=== PATIENT | female | born 1960 | race Caucasian/White ===

== ENCOUNTER → 2016-11-07 | Outpatient (CLI) | payer OTHER ==
[2016-11-07 14:06] VITALS: BP 119/77; PULSE 76; RESP 16; TEMP 97.7
--- NOTE | 2016-11-07 14:48 | P.PN ---
Subjective This is follow-up visit for this patient with a history of severe and chronic low back pain secondary to lumbar degenerative disc disease, lumbar facet arthropathy, failed back surgery syndrome lumbar area , and sacroiliitis ,we have done interventional pain management injection, diagnostic medial branch block later on we did the radiofrequency ablation medial branch lumbar area on the left side, and she continued to have severe low back pain on the left side low back area with radiation to the left upper, she denies any motor or sensory deficit she denies any fever or night sweats and no change in bowel movement or urination,, and is currently on pain medications Coffe[place] 7.5/325 every 6 hours Patient denies any side effects of the medication, denies excessive drowsiness or sleepiness, denies suicidal ideation, and reports that the current pain medication is NOT helping To control the pain and improve activity of daily living Physical Examinations : 1-Constitutiona : Cooperative , not in acute distress . 2-HEENT : nech ; supple , no Lymphadenopathy , no Thyromegaly , normal thyroid size . eyes : no ptosis , no icterus, no photophobia . ENT : normal of hearing , normal oropharynx , no Thrush . 3- Respiratory : Chest clear to auscultations Bilaterally , no wheezing , no Rhonchi . 4- Cardiovascular : regular rate and rhythem , S1 , S2 , no S3 , no S4. 5- Gastrointestinal : abdomen soft no tenderness , bowel sounds positive all four quadrents , no organomegally . 6- Genitourinary : Defferred . 7- neurologic : Cranial nerve II to XII intact , no focal neurological deffecit . 8-psychatric : alert , oriented X 3 , appropriate affect , intact judgment and insight . 9-Lymphatic : no Lymphadenopathy . 10- musculoskeltal : exams of the cervical spine = motor strength normal bilateral upper extremities facet loading test cervical area positive. exams of the Lumber spine = motor strength lower extremities ,thigh and legs .5/5 on the right side and its 4 over 5 on the left side deep tendon reflexes : normal Knee Jerk , normal ankle Jerk . lumber facet Loading Test positive strait leg raising test positive at 30 degree , RT ,LT , Fabere test positive RT and positive LT . Range of motion: Range of motion in flexion of the lumbar spine 30 degrees Range of motion range of motion of extension of the lumbar spine 10 Sever tenderness over the Sacroiliac joint on the Left side , negative on the right side Assessment and plan = - Chronic low back pain secondary to lumbar degenerative disc disease , lumbar spondylosis with facet arthropathy without myelopathy ,, failed back surgery syndrome and lumbar area, and left sacroiliitis, status post radiofrequency ablation medial branch lumbar area on the left side -chronic and current use of high-risk medication (Opioids). The patient was counseled about risk of opioid use, psychological risk associated with opioids and was orally counseled to not overuse , abuse , divert ,or sell dictations to take medications as prescribed only , and to restore medication in safe location , and patient counseled against driving while using narcotic medications, and also not to use alcohol or any illicit recreational drugs the patient's verbalized understanding that the lack of compliance will result in failure to renew narcotic prescription and possible discharge from the clinic - diagnoses, prognosis, and treatment options including but not limited to physical therapy, surgical interventions, interventional therapies and medication management including narcotics and adjuvant medication were discussed with the patient and all questions answered to the patient's satisfaction. -medication refile = increase Coffey to 10/325 every 6 hours , start Motrin 800 mg 3 times a day. -procedure= left sacroiliac joint steroid injection under fluoroscopy guidance Objective - Vital Signs Vital signs: Vital Signs Temp 97.7 F 11/07/16 13:57 Pulse 76 11/07/16 13:57 Resp 16 11/07/16 13:57 BP 119/77 11/07/16 13:57 Pulse Ox 100 11/07/16 13:57 Intake & Output 11/06/16 11/07/16 11/07/16 18:59 06:59 18:59 Weight 86.636 kg
== END | disposition home or self-care (01) ==
LOC: PNWHC3 13:12
PROVIDERS: ATTEND Specialist
DX: M51.36 Other intervertebral disc degeneration, lumbar region (principal); M47.816 Spondylosis without myelopathy or radiculopathy, lumbar region; M46.96 Unspecified inflammatory spondylopathy, lumbar region; M46.1 Sacroiliitis, not elsewhere classified; M96.1 Postlaminectomy syndrome, not elsewhere classified; Z79.891 Long term (current) use of opiate analgesic
CPT/HCPCS: 80307; 80364; 99211

== ENCOUNTER → 2016-12-05 | Outpatient (CLI) | payer OTHER ==
[2016-12-05 13:11] VITALS: BP 140/76; PULSE 66; RESP 16; TEMP 98.1
--- NOTE | 2016-12-05 13:25 | P.PN ---
Progress Note - Text Patient returns for followup for chronic back pain with radiation to bilateral LEs. Patient recently underwent MBBs and left lumbar RFA, which provided good relief in interval since procedure and patient is scheduled to have left SIJ injection at the end of this month. Patient continues on [place] and Neurontin medications for pain with good relief, although [place] was increased at last visit to #120 pills. Patient denies adverse drug effects from medications. Today, pt denies new-onset weakness, bowel/bladder incontinence, or any other signs or symptoms of cauda equina syndrome. There are no signs of acute intoxication, and no indications of medication diversion or overuse. In addition to above, 13-point review of systems is also negative for chest pain , shortness of breath, changes in vision, changes in hearing, new onset weakness , abdominal pain, diarrhea, extreme fatigue, malaise, fever, skin changes, homicidal or suicidal ideation, or bowel or bladder incontinence. Vital Signs: Reviewed in EMR Gen: WDWN, AAOx3, NAD HEENT: NCAT, EOMI, hearing grossly normal Pulm: resp unlabored Abd: soft, NT, ND Neck: supple, trachea midline ROM in flexion lumbar spine: reduced ROM in extension lumbar spine: reduced Lumbar paravertebral tenderness: + Facet loading: + bilateral SI joint tenderness: + bilateral L > R Cm's test: + L side, neg R side Straight leg raise: neg bilateral Neuro: CN II-XII grossly intact, muscle strength lower extremities PRESERVED Imaging: Reviewed in EMR Assessment: 1. lumbar spondylosis without myelopathy 2. lumbar postlaminectomy syndrome 3. sacroiliac joint dysfunction Plan: 1. Explanation: Opioid and psychological risk scores were reviewed. Diagnoses , prognoses, and multiple treatment options including but not limited to physical therapy, interventional therapies, adjuvant medical therapies, narcotic medication therapies, and surgery were discussed with the patient and all questions were answered to the patient's satisfaction. 2. Opioid agreement: Patient has previously signed narcotic agreement, and was orally counseled to not overuse, abuse, divert, or cell medications, and to take them as prescribed by only 1 healthcare provider. The patient was also counseled to store opioid medications in a safe and preferably locked location. Patient was also counseled against driving or operating heavy equipment while using narcotic medications and also to not use alcohol or any illicit or recreational drugs. The patient verbalized understanding that lack of compliance with any of the above and likely result in failure to renew narcotic prescriptions, possible discharge from the clinic, and possible legal ramifications thereafter if indicated. 3. Counseling: The patient was counseled extensively on SMOKING CESSATION, BODY MASS INDEX, EXERCISE. Specifically, the patient was instructed regarding the importance of smoking cessation, obesity, and exercise in the context of both chronic pain and overall health. 4. Procedures: left SIJ injection at end of November 5. Consultations: None 6. Investigations: None 7. Medications: [place] 10/325 #120 x 1 month (fill after 12/16/16), Motrin 800 # 90 with one refill 8. Disposition: f/u for PQRS measures: 1-Patient's medications are documented in the chart. 2-Tobacco use is positive/negative, counseling given 3-Patient has not had a pneumococcal vaccine. 4-Advanced care planning discussed, patient not eligible. 5-Opioid contract signed with the patient today. 6-Pain positive, follow-up visit or procedure scheduled 7-Patient's blood pressure measured and documented, WNL. 8-Patient's weight was measured, and body mass index ABOVE the normal limits, and counseling was done. Patient instructed to follow up with PCP. 9-Patient WAS NOT identified as an unhealthy alcohol user.
== END | disposition home or self-care (01) ==
LOC: PNWHC3 12:49
PROVIDERS: ATTEND Anesthesiology
DX: G89.29 Other chronic pain (principal); M47.816 Spondylosis without myelopathy or radiculopathy, lumbar region; M96.1 Postlaminectomy syndrome, not elsewhere classified; M53.3 Sacrococcygeal disorders, not elsewhere classified; Z79.891 Long term (current) use of opiate analgesic; Z79.899 Other long term (current) drug therapy
CPT/HCPCS: 99211

== ENCOUNTER 2016-12-26 07:45 | Day surgery (SDC) | payer OTHER ==
[2016-12-22 17:48] VITALS: BMI 32.8
[~2016-12-26 07:45] MED LIST: LACTATED RINGERS 1,000 ML IV SCH
[2016-12-26 08:35] VITALS: RESP 16; TEMP 97.6
[2016-12-26] MEDS ORDERED: BUPIVACAINE (PF) 0.5% 30 ML VIAL ONE (09:16)
[2016-12-26] MEDS ORDERED: TRIAMCINOLONE ACETONIDE 40 MG/ML 1 ML VIAL ONE (09:16)
[2016-12-26] MEDS ORDERED: fentaNYL (PF) 50 MCG/ML 2 ML AMP ONE (09:16)
[2016-12-26] MEDS ORDERED: IOHEXOL 180 MG/ML 1 ML ML ONE (09:16)
[2016-12-26] MEDS ORDERED: MIDAZOLAM 2 MG/2 ML VIAL ONE (09:16)
--- NOTE | 2016-12-26 09:30 | P.PCN ---
Date of Procedure: 12/26/16 Surgeon: Florin Vera Pathology: none sent Condition: stable Disposition: PACU Description of Procedure: PREOPERATIVE DIAGNOSIS: 1-Bilateral sacroiliitis. 2 Lumbar DDD POSTOPERATIVE DIAGNOSIS:. 1-Bilateral sacroiliitis. 2 Lumbar DDD PROCEDURES: Left Sacroiliac joint steroid injection with fluoroscopic guidance ANESTHESIA: conscious sedation EBL: Minimal. PROCEDURE INDICATIONS: This patient with a history of low back pain secondary to sacroiliitis and lumbar DDD unresponsive to conservative management. No use of blood thinners. PROCEDURE DESCRIPTION: The patient was seen and identified in the preoperative area. Risks, benefits, complications, and alternatives were discussed with the patient (including but not limited to incomplete pain relief, bleeding, infection, nerve damage, and allergies to medications), the patient agreed to proceed with the procedure and signed the consent after all questions were answered. Patient was taken to the OR and time out was completed to verify proper patient , position, laterality of pain, and allergies. Pt was placed in the prone position and a pillow was placed under the abdomen to reduce lumbar lordosis. The lumbosacral area was prepped and draped in the usual sterile fashion. Critical pause was taken. Vital signs were closely monitored during the procedure. The fluoroscopic camera was placed in contralateral oblique view and left sacroiliiac joint lower pole was identified. After local infiltration with 1% lidocaine 2 ml, Subsequently, a 22-gauge 3.5 inch spinal needle was introduced into the posteroinferior aspect of the left sacroiliac joint under direct fluoroscopic visualization. Subsequently, 4 ml of a solution containing total 4 mL of 0.5% preservative-free bupivicaine mixed with 80 mg of Kenalog was injected after negative aspiration for CSF, blood, and air and negative for paresthesia. Needle was withdrawn intact. Skin was cleansed, and bandages were applied. COMPLICATIONS: None. COMMENTS: DISPOSITION / PLANS: The patient was placed in a supine position and transferred to the recovery area in a stable condition for observation and was discharged from the recovery room after meeting discharge criteria. Home discharge instructions given to the patient by the staff. The patient was reexamined prior to discharge and there were no issues. The patient will schedule a follow up in clinic in 2-4 weeks.
[2016-12-26] MEDS ORDERED: IV FLUID CONTINUATION 1,000 ML IV ONE (09:38)
[2016-12-26 10:11] VITALS: BP 103/64; PULSE 81
--- NOTE | 2016-12-26 12:30 | FL ---
Fluoroscopy HISTORY: Pain 15 seconds fluoroscopy time supplied to the referring clinician. 1 intraoperative C-arm images docum ent the procedure. See dictated report from anesthesia.
== END 2016-12-26 10:29 | disposition home or self-care (01) ==
LOC: ORPAIN 07:45
PROVIDERS: ATTEND Anesthesiology
DX: G89.29 Other chronic pain (principal); M54.9 Dorsalgia, unspecified; M46.1 Sacroiliitis, not elsewhere classified; M51.36 Other intervertebral disc degeneration, lumbar region; Z79.891 Long term (current) use of opiate analgesic
CPT/HCPCS: 27096; 99152; J2250; J3301; Q9965; J3010

== ENCOUNTER → 2017-01-09 | Outpatient (CLI) | payer OTHER ==
[2017-01-09 15:05] VITALS: BP 128/66; PULSE 75; RESP 16; TEMP 97.4
--- NOTE | 2017-01-09 15:28 | P.PN ---
Subjective This is follow-up visit for this patient with a history of severe and chronic low back pain secondary to lumbar degenerative disc disease , lumbar spondylosis with facet arthropathy , patient had lumbar fusion surgery with ha placed several years ago as part of treatment for scoliosis, and later on the rode has to be removed, we have done interventional pain management injection, radiofrequency ablation of the medial branch left-sided L4 5/L5-S1 and later on we did left sacroiliac joint steroid injection, currently she is complaining of localized pain in the lower lumbar area mainly on the left side, it is constant and increases with any activity, she denies any motor or sensory deficit she denies any fever or night sweats which denies any change in the bowel movements or urination, and is currently on pain medications 1-Motrin 800 mg when necessary 2- [place] 10/325 every 6 hours Patient denies any side effects of the medication, denies excessive drowsiness or sleepiness, denies suicidal ideation, and reports that the current pain medication is NOT helping To control the pain and improve activity of daily living Physical Examinations : 1-Constitutiona : Cooperative , not in acute distress . 2-HEENT : nech ; supple , no Lymphadenopathy , no Thyromegaly , normal thyroid size . eyes : no ptosis , no icterus, no photophobia . ENT : normal of hearing , normal oropharynx , no Thrush . 3- Respiratory : Chest clear to auscultations Bilaterally , no wheezing , no Rhonchi . 4- Cardiovascular : regular rate and rhythem , S1 , S2 , no S3 , no S4. 5- Gastrointestinal : abdomen soft no tenderness , bowel sounds positive all four quadrents , no organomegally . 6- Genitourinary : Defferred . 7- neurologic : Cranial nerve II to XII intact , no focal neurological deffecit . 8-psychatric : alert , oriented X 3 , appropriate affect , intact judgment and insight . 9-Lymphatic : no Lymphadenopathy . 10- musculoskeltal : exams of the Lumber spine = motor strength lower extremities ,thigh and legs .5/5 deep tendon reflexes : normal Knee Jerk , normal ankle Jerk . lumber facet Loading Test positive strait leg raising test positive at 30 degree , RT ,LT , Fabere test positive RT and positive LT . Range of motion: Range of motion in flexion of the lumbar spine 30 degrees Range of motion range of motion of extension of the lumbar spine 10 Sever tenderness over the Sacroiliac joint on the and Left side Assessment and plan = - Chronic low back pain secondary to lumbar degenerative disc disease , lumbar spondylosis with facet arthropathy without myelopathy , failed back surgery syndrome and lumbar area , and left sacroiliitis - chronic and current use of high-risk medication (Opioids). The patient was counseled about risk of opioid use, psychological risk associated with opioids and was orally counseled to not overuse , divert,or sell dictations to take medications as prescribed only , and to restore medication in safe location , and the patient counseled against driving while using narcotic medications, and also not to use alcohol or any illicit recreational drugs, the patient's verbalized understanding that the lack of compliance will result in failure to renew narcotic prescription and possible discharge from the clinic - diagnoses, prognosis, and treatment options including but not limited to physical therapy, surgical interventions, interventional therapies , and medication management including narcotics and adjuvant medication were discussed with the patient and all The questions answered -medication management =1-[place] 10/325 every 6 hours dispense 120 with one refill -procedure= schedule patient to have left sacroiliac joint steroid injection , if she benefits from it then will consider doing radiofrequency of the left sacroiliac joint, and if she has no benefit in the hospital though caudal epidural with lysis of epidural adhesions Objective - Vital Signs Vital signs: Vital Signs Temp 97.4 F L 01/09/17 15:02 Pulse 75 01/09/17 15:02 Resp 16 01/09/17 15:02 BP 128/66 01/09/17 15:02 Pulse Ox 97 01/09/17 15:02 Intake & Output 01/08/17 01/09/17 01/09/17 18:59 06:59 18:59 Weight 86.636 kg
== END | disposition home or self-care (01) ==
LOC: PNWHC3 14:47
PROVIDERS: ATTEND Specialist
DX: M51.36 Other intervertebral disc degeneration, lumbar region (principal); M47.816 Spondylosis without myelopathy or radiculopathy, lumbar region; M46.96 Unspecified inflammatory spondylopathy, lumbar region; M46.1 Sacroiliitis, not elsewhere classified; G89.29 Other chronic pain; Z79.891 Long term (current) use of opiate analgesic
CPT/HCPCS: 99211

== ENCOUNTER 2017-02-08 07:51 | Day surgery (SDC) | payer OTHER ==
[2017-02-07 09:10] VITALS: BMI 31.8
[2017-02-08 08:35] VITALS: RESP 16; TEMP 97.7
[2017-02-08] MEDS ORDERED: LIDOCAINE 1% 20 ML VIAL (10MG/ML) FOR IV START SQ ONE (08:35)
[2017-02-08] MEDS ORDERED: MIDAZOLAM 2 MG/2 ML VIAL ONE (08:53)
[2017-02-08] MEDS ORDERED: fentaNYL (PF) 50 MCG/ML 2 ML AMP ONE (08:53)
[2017-02-08] MEDS ORDERED: BUPIVACAINE (PF) 0.5% 30 ML VIAL ONE (08:53)
[2017-02-08] MEDS ORDERED: TRIAMCINOLONE ACETONIDE 40 MG/ML 1 ML VIAL ONE (08:53)
--- NOTE | 2017-02-08 09:18 | P.PCN ---
Date of Procedure: 02/08/17 Procedure(s) Performed: Preoperative diagnoses= 1-left sacroiliitis. 2-lumbar spondylosis with lumbar facet arthropathy. 3-lumbar DDD Postoperative diagnoses= same as preoperative diagnosis. Procedure= Left sacroiliac joint steroid injection under fluoroscopic guidance. Anesthesia= conscious sedation with Versed 1 mg and fentanyl 50 micrograms and local infiltration with lidocaine 1% 2 ml Estimated blood loss=minimal. Procedure indication= the patient had a history of severe chronic low back pain , diagnosed with sacroiliitis and lumbar sacral facet arthropathy unresponsive to conservative treatment. Procedure description= the patient was seen and identified in the preoperative holding area, risks and benefits and alternative of the procedure and possible complications discussed with the patient, and he agreed with the preceding, patient signed the consent, an IV was started, and vital signs were monitored and were stable throughout the procedure, patient was placed in the prone position or table and the lumbosacral area was prepped and draped with a sterile fashion, vital signs were closely monitored during the procedure, the fluoroscopy camera was placed in the contralateral oblique view on the left sacroiliac joint and the lower part of the joint was identified, local infiltration of the skin and subcutaneous tissue with lidocaine 1% 2 mL then a 22-gauge Quincke-type spinal needle advanced slowly under fluoroscopy and placed in the posterior and inferior border of the left sacroiliac joint, placement confirmed with AP and lateral view, and after appropriate needle placement confirmed and after negative aspiration for heme and CSF and there was no paresthesia during the injection, 3 ml of Marcaine 0.5% and 40 mg of Kenalog injected after negative aspiration, the needle removed intact, Patient tolerated the procedure well without any complication, The patient returned to supine position after the back was cleaned and a Band- Aid applied, the patient transported to recovery room in stable condition and he was monitored for 30 minutes before he was discharged home and then patient was reexamined before going home and patient was discharged in stable condition and patient will follow up with the pain clinic in a few weeks
[2017-02-08] MEDS ORDERED: IV FLUID CONTINUATION 1,000 ML IV ONE (09:27)
--- NOTE | 2017-02-08 09:36 | FL ---
EXAMINATION TYPE: FL guided pain mgmt statistic DATE OF EXAM: 02/08/2017 9:21 AM HISTORY: Flouroscopy time 4 seconds of fluoroscopy provided. IMPRESSION: 1. Fluoroscopy time.
[2017-02-08 09:43] VITALS: BP 114/77; PULSE 73
== END 2017-02-08 09:55 | disposition home or self-care (01) ==
LOC: ORPAIN 07:51
PROVIDERS: ATTEND Specialist
DX: G89.29 Other chronic pain (principal); M46.1 Sacroiliitis, not elsewhere classified; M51.36 Other intervertebral disc degeneration, lumbar region; M47.816 Spondylosis without myelopathy or radiculopathy, lumbar region
CPT/HCPCS: 27096; 99152; J2250; J3301; J3010

== ENCOUNTER → 2017-02-23 | Outpatient (CLI) | payer OTHER ==
--- NOTE | 2017-02-24 10:05 | US ---
EXAMINATION TYPE: US abdomen complete DATE OF EXAM: 02/23/2017 6:38 PM COMPARISON: NONE CLINICAL HISTORY: R10.11 RUQ Pain, R10.13 Epigastic pain. Nausea EXAM MEASUREMENTS: Liver Length: 15.6 cm Gallbladder Wall: 0.2 cm CBD: 0.4 cm Spleen: 10.6 cm Right Kidney: 11.2 x 5.1 x 5.2 cm Left Kidney: 10.6 x 5.5 x 4.9 cm Pancreas: Not well visualized due to overlying bowel gas Liver: Heterogeneous echotexture, no masses visualized Gallbladder: Mobile echogenic foci visualized measuring 2.7 cm Evidence for sonographic Marroquin's sign: No CBD: wnl as visualized, distal portion obscured by bowel gas Spleen: wnl Right Kidney: No hydronephrosis or masses seen Left Kidney: No hydronephrosis or masses seen, difficult/limited visualization due to overlying marlen l Upper IVC: wnl Abd Aorta: wnl IMPRESSION: 1. Cholelithiasis 2. Nonspecific pattern with the liver can be seen with diffuse hepatocellular disease, hepatitis or f atty infiltration.
== END | disposition home or self-care (01) ==
LOC: RADUSMAIN 17:51
PROVIDERS: ATTEND Family Medicine
DX: K80.20 Calculus of gallbladder without cholecystitis without obstruction (principal)
CPT/HCPCS: 76700

== ENCOUNTER → 2017-03-08 | Outpatient (CLI) | payer OTHER ==
[2017-03-08 13:17] VITALS: BP 131/76; PULSE 78; RESP 18; TEMP 97.7
--- NOTE | 2017-03-08 14:11 | P.PN ---
Subjective This is follow-up visit for this patient with a history of severe and chronic low back pain secondary to lumbar degenerative disc diseases ,failed back surgery syndrome,, lumbar spondylosis with facet arthropathy, left sacroiliitis , status post left sacroiliac joint steroid injections , RFA of the medial branches and is currently on pain medications 1-norco 5/325-6 hours Patient denies any side effects of the medication, denies excessive drowsiness or sleepiness, denies suicidal ideation, and reports that the current pain medication is NOT helping To control the pain and improve activity of daily living Patient denies any motor or sensory deficit , patient denies any fever or night sweats, denies any change in the bowel movements or urination Physical Examinations : 1-Constitutiona : Cooperative , not in acute distress . 2-HEENT : nech ; supple , no Lymphadenopathy , no Thyromegaly , normal thyroid size . eyes : no ptosis , no icterus, no photophobia . ENT : normal of hearing , normal oropharynx , no Thrush . 3- Respiratory : Chest clear to auscultations Bilaterally , no wheezing , no Rhonchi . 4- Cardiovascular : regular rate and rhythem , S1 , S2 , no S3 , no S4. 5- Gastrointestinal : abdomen soft no tenderness , bowel sounds positive all four quadrents , no organomegally . 6- Genitourinary : Defferred . 7- neurologic : Cranial nerve II to XII intact , no focal neurological deffecit . 8-psychatric : alert , oriented X 3 , appropriate affect , intact judgment and insight . 9-Lymphatic : no Lymphadenopathy . 10- musculoskeltal : exams of the Lumber spine = motor strength lower extremities ,thigh and legs .5/5 deep tendon reflexes : normal Knee Jerk , normal ankle Jerk . lumber facet Loading Test positive strait leg raising test positive at 30 degree , RT ,LT , Fabere test positive RT and positive LT . Range of motion: Range of motion in flexion of the lumbar spine 30 degrees Range of motion range of motion of extension of the lumbar spine 10 mild tenderness over the Sacroiliac joint on the Left side Assessment and plan = - Chronic low back pain secondary to lumbar degenerative disc disease , lumbar spondylosis with facet arthropathy without myelopathy ,FBSS , Left sacroiliitis, She had a good result after the left-sided sacroiliac joint steroid injections, ,and she had good result in the past we did radiofrequency ablation of the medial branch lumbar area - chronic and current use of high-risk medication (Opioids). The patient was counseled about risk of opioid use, psychological risk associated with opioids and was orally counseled to not overuse , divert,or sell dictations to take medications as prescribed only , and to restore medication in safe location , and the patient counseled against driving while using narcotic medications, and also not to use alcohol or any illicit recreational drugs, the patient's verbalized understanding that the lack of compliance will result in failure to renew narcotic prescription and possible discharge from the clinic - diagnoses, prognosis, and treatment options including but not limited to physical therapy, surgical interventions, interventional therapies , and medication management including narcotics and adjuvant medication were discussed with the patient and all shins answered Patient given prescription refill for [place] 5/325 every 6 hours for 2 months Objective - Vital Signs Vital signs: Vital Signs Temp 97.7 F 03/08/17 13:11 Pulse 78 03/08/17 13:11 Resp 18 03/08/17 13:11 BP 131/76 03/08/17 13:11 Pulse Ox Intake & Output 03/07/17 03/08/17 03/08/17 18:59 06:59 18:59 Weight 86.636 kg
== END | disposition home or self-care (01) ==
LOC: PNWHC3 12:51
PROVIDERS: ATTEND Specialist
DX: M51.36 Other intervertebral disc degeneration, lumbar region (principal); M47.816 Spondylosis without myelopathy or radiculopathy, lumbar region; M46.96 Unspecified inflammatory spondylopathy, lumbar region; M46.1 Sacroiliitis, not elsewhere classified; G89.29 Other chronic pain; Z79.891 Long term (current) use of opiate analgesic
CPT/HCPCS: 99211

== ENCOUNTER → 2017-05-03 | Outpatient (CLI) | payer OTHER ==
[2017-05-03 14:58] VITALS: BP 117/74; PULSE 91; RESP 16; TEMP 98.4
--- NOTE | 2017-05-03 15:22 | P.PN ---
Progress Note - Text Patient returns for followup for chronic back pain with radiation to bilateral LEs. Patient recently underwent MBBs and left lumbar RFA and left SIJ injections which have helped her significantly but is now complaining of neck pain and headaches. Patient continues on [place] and Neurontin medications for pain with good relief, although [place] was increased at last visit to #120 pills. Patient denies adverse drug effects from medications. Today, pt denies new-onset weakness, bowel/bladder incontinence, or any other signs or symptoms of cauda equina syndrome. There are no signs of acute intoxication, and no indications of medication diversion or overuse. In addition to above, 13-point review of systems is also negative for chest pain , shortness of breath, changes in vision, changes in hearing, new onset weakness , abdominal pain, diarrhea, extreme fatigue, malaise, fever, skin changes, homicidal or suicidal ideation, or bowel or bladder incontinence. Vital Signs: Reviewed in EMR Gen: WDWN, AAOx3, NAD HEENT: NCAT, EOMI, hearing grossly normal Pulm: resp unlabored Abd: soft, NT, ND Neck: supple, trachea midline +cervical facet tenderness, L > R ROM in flexion lumbar spine: reduced ROM in extension lumbar spine: reduced Lumbar paravertebral tenderness: + Facet loading: + bilateral SI joint tenderness: + bilateral L > R Cm's test: + L side, neg R side Straight leg raise: neg bilateral Neuro: CN II-XII grossly intact, muscle strength lower extremities PRESERVED Imaging: Reviewed in EMR Assessment: 1. lumbar spondylosis without myelopathy 2. lumbar postlaminectomy syndrome 3. sacroiliac joint dysfunction Plan: 1. Explanation: Opioid and psychological risk scores were reviewed. Diagnoses , prognoses, and multiple treatment options including but not limited to physical therapy, interventional therapies, adjuvant medical therapies, narcotic medication therapies, and surgery were discussed with the patient and all questions were answered to the patient's satisfaction. 2. Opioid agreement: Patient has previously signed narcotic agreement, and was orally counseled to not overuse, abuse, divert, or cell medications, and to take them as prescribed by only 1 healthcare provider. The patient was also counseled to store opioid medications in a safe and preferably locked location. Patient was also counseled against driving or operating heavy equipment while using narcotic medications and also to not use alcohol or any illicit or recreational drugs. The patient verbalized understanding that lack of compliance with any of the above and likely result in failure to renew narcotic prescriptions, possible discharge from the clinic, and possible legal ramifications thereafter if indicated. 3. Counseling: The patient was counseled extensively on SMOKING, BODY MASS INDEX, EXERCISE. Specifically, the patient was instructed regarding the importance of smoking cessation, weight control and exercise in the context of both chronic pain and overall health. 4. Procedures: none for now 5. Consultations: None 6. Investigations: MRI C-spine 7. Medications: [place] 10/325 #120 x 2 months + Motrin x 2 months; told patient we will likely decrease [place] to #90 at next visit. Patient to have cholecystectomy and I asked her not to get any medications from her surgical team. 8. Disposition: f/u for re-eval in 8 weeks with MRI C-spine PQRS measures: 1-Patient's medications are documented in the chart. 2-Tobacco use is positive/negative, counseling given 3-Patient has not had a pneumococcal vaccine. 4-Advanced care planning discussed, patient not eligible. 5-Opioid contract signed with the patient today. 6-Pain positive, follow-up visit or procedure scheduled 7-Patient's blood pressure measured and documented, WNL. 8-Patient's weight was measured, and body mass index ABOVE the normal limits, and counseling was done. Patient instructed to follow up with PCP. 9-Patient WAS NOT identified as an unhealthy alcohol user.
== END | disposition home or self-care (01) ==
LOC: PNWHC3 14:38
PROVIDERS: ATTEND Anesthesiology
DX: M47.816 Spondylosis without myelopathy or radiculopathy, lumbar region (principal); M53.3 Sacrococcygeal disorders, not elsewhere classified; M96.1 Postlaminectomy syndrome, not elsewhere classified
CPT/HCPCS: 99211

== ENCOUNTER 2017-05-12 06:30 | Day surgery (SDC) | payer OTHER ==
--- NOTE | 2017-04-28 16:10 | P.GSHP ---
History of Present Illness H&P Date: 04/28/17 Chief Complaint: Cholecystitis Patient presented to the office with complaints of right upper quadrant pain. Pain is fairly constant. Has been increasing over the last few years. Pain radiates into the epigastric region and chest. Some radiation to the back is well. Increase his with red meats. Also has bloating and some loose stools. Ultrasound shows a large gallstone measuring 2.7 cm. Recent lab work shows normal liver enzymes. No change in the color of her skin urine or stool. Past Medical History Past Medical History: Fibromyalgia, Musculoskeletal Disorder Additional Past Medical History / Comment(s): back & neck pain History of Any Multi-Drug Resistant Organisms: None Reported Past Surgical History: Back Surgery, Section Additional Past Surgical History / Comment(s): back surgery at 16 for scoliosis , PAIN CLINIC INJECTIONS Past Anesthesia/Blood Transfusion Reactions: No Reported Reaction Smoking Status: Never smoker - Past Family History Father Family Medical History: Cancer, Rheumatoid Arthritis (RA) Mother History Unknown: Yes Family Medical History: Hypertension Medications and Allergies Home Medications Medication Instructions Recorded Confirmed Type PARoxetine HCL [Paxil] 40 mg PO HS 09/08/14 02/08/17 History Estradiol [Estrace] 1 mg PO DAILY 06/14/16 02/08/17 History Topiramate [Topamax] 400 tab PO HS 06/14/16 02/08/17 History Multivitamin [Multivitamins Adult 1 each PO DAILY 12/05/16 02/08/17 History Gummies] Allergies Allergy/AdvReac Type Severity Reaction Status Date / Time No Known Allergies Allergy Verified 03/08/17 13:08 Surgical - Exam Physical exam: General: Well-developed, well-nourished HEENT: Normocephalic, sclerae nonicteric Abdomen: Mild right upper quadrant tenderness, nondistended Extremities: No edema Neuro: Alert and oriented Assessment and Plan (1) Acute cholecystitis Narrative/Plan: Will proceed with lap scopic cholecystectomy on . Risks of bleeding, infection, bile duct injury, biliary leak, retained CBD Stone, conversion to an open procedure were discussed. She understands and wishes to proceed. Status: Acute
[2017-05-09 13:16] VITALS: BMI 31.8
[~2017-05-12 06:30] MED LIST changes: +DEXAMETHASONE SOD PHOSPHATE 10 MG/ML 1 ML VIAL IV ONE; +HEPARIN SODIUM,PORCINE 5,000 UNIT/ML 1 ML VIAL SQ ONE; +LACTATED RINGERS 1,000 ML IV ONE; -LACTATED RINGERS 1,000 ML IV SCH; +MIDAZOLAM 2 MG/2 ML VIAL IV PRN; +ONDANSETRON 4 MG/2 ML VIAL IVP ONE; +SCOPOLAMINE 1.5MG/72HR PATCH TRANSDERM ONE; +ceFAZolin 2 GM in SODIUM CHLORIDE 0.9% 100 ML IVPB ONE
[2017-05-12] MEDS ORDERED: LIDOCAINE 1% 20 ML VIAL (10MG/ML) FOR IV START SQ ONE (06:56)
[2017-05-12] MEDS ORDERED: NEOSTIGMINE 1 MG/ML 10 ML VIAL ONE (08:10)
[2017-05-12] MEDS ORDERED: GLYCOPYRROLATE 0.2 MG/ML 2 ML VIAL ONE (08:10)
[2017-05-12] MEDS ORDERED: fentaNYL (PF) 50 MCG/ML 2 ML AMP ONE (08:10)
[2017-05-12] MEDS ORDERED: MIDAZOLAM 2 MG/2 ML VIAL ONE (08:10)
[2017-05-12] MEDS ORDERED: LIDOCAINE 1% INJ 10MG/ML (20 ML MDV) ONE (08:10)
[2017-05-12] MEDS ORDERED: PROPOFOL 10 MG/ML 20 ML VIAL IV ONE (08:10)
[2017-05-12] MEDS ORDERED: ROCURONIUM BROMIDE 10 MG/ML 10 ML VIAL IV ONE (08:10)
[2017-05-12] MEDS ORDERED: BUPIVACAINE (PF) 0.25% 30 ML VIAL SQ ONE ×2 (08:38)
[2017-05-12 09:31] VITALS: TEMP 97
[2017-05-12] MEDS ORDERED: NALOXONE 0.4 MG/ML 1 ML VIAL IV PRN (09:32)
[2017-05-12] MEDS ORDERED: HYDROcodone/APAP 5-325MG 1 EACH TAB PO PRN (09:32)
[2017-05-12] MEDS: HYDROmorphone 1 MG/ML 1 ML SYRINGE IVP PRN ×4 (09:35→09:55)
--- NOTE | 2017-05-12 09:35 | P.OP ---
Date of Procedure: 05/12/17 Preoperative Diagnosis: Postoperative Diagnosis: Procedure(s) Performed: PREOPERATIVE DIAGNOSIS: Chronic cholecystitis POSTOPERATIVE DIAGNOSIS: Same PROCEDURE: Laparoscopic cholecystectomy with repair umbilical hernia SURGEON: Carmen EBL: Minimal see anesthesia record ANESTHESIA: Gen. COMPLICATIONS: None OPERATIVE PROCEDURE: The patient was brought and placed on the operating room table in the supine position. The patient was placed under general anesthesia at that time. The abdomen was prepped and draped in the usual sterile fashion. A small curvilinear supraumbilical incision was made at the site of what was suspected represent a small hernia. The hernia sac was identified and excised using electrocautery. The fascia was grasped with the Nii forceps. The fascia was retracted anteriorly. The Veress needle was advanced into the peritoneal cavity through the hernia defect. The saline drop test was normal. Insufflation took place up to 15 mmHg. A 5 mm optical trocar was advanced into the peritoneal cavity through the hernia defect. 2 additional 5 mm trochars were placed in the right upper quadrant under direct visualization. A 10 mm trocar was advanced into the epigastric incision site. The gallbladder was retracted superiorly and laterally. The peritoneum overlying the infundibulum was bluntly dissected. The patient's cystic duct was visualized. The junction between the cystic duct common and hepatic duct was identified. The cystic duct was then divided after placement of 3 10 mm clips on the patient's side and one on the specimen side. The cystic artery was identified and clipped as well. A small vessel was seen along the gallbladder fossa and clipped as well. The gallbladder was then removed from the liver bed using electrocautery. The gallbladder was then removed from the epigastric trocar site with an Endo Catch bag. The gallbladder fossa was irrigated with saline. There was no evidence of any bleeding or biliary drainage seen. The trochars were then removed. The fascia at the 10 millimeter site was closed using a Mckinley- Viry 0 Vicryl stitch. The defect at the umbilicus was also closed using a 0 Vicryl Mckinley-Viry stitch. The skin at all 4 sites was closed using a 4- 0 Monocryl stitch. At the end of this procedure the sponge and needle counts were correct. DISPOSITION: Stable to the recovery room Implants: Indications for Procedure: Operative Findings: Description of Procedure:
[2017-05-12] MEDS ORDERED: LACTATED RINGERS 1,000 ML IV ONE (09:53)
[2017-05-12 10:32] VITALS: RESP 16
[2017-05-12] MEDS ORDERED: HYDROcodone/APAP 10-325MG 1 EACH TAB PO ONE (10:40)
[2017-05-12 11:39] VITALS: BP 139/78; PULSE 75
== END 2017-05-12 11:38 | disposition home or self-care (01) ==
LOC: OR 06:30
PROVIDERS: ATTEND Surgery
DX: K80.10 Calculus of gallbladder with chronic cholecystitis without obstruction (principal); K42.9 Umbilical hernia without obstruction or gangrene; M79.7 Fibromyalgia; F32.9 Major depressive disorder, single episode, unspecified; Z79.899 Other long term (current) drug therapy
CPT/HCPCS: 88304; 49652; 47562; J2250; J1644; J1100; J2710; J2405; J2001; J3010; J1170; J2704

== ENCOUNTER → 2017-06-28 | Outpatient (CLI) | payer OTHER ==
[2017-06-28 12:01] VITALS: BP 106/61; PULSE 73; RESP 18
--- NOTE | 2017-06-28 12:16 | P.PN ---
Progress Note - Text -year-old female with history of lower back pain status post bilateral sacroiliac joint steroid injection with good control of her lower back pain. She also has a diagnosis of failed back surgery syndrome. The patient also underwent lumbar medial branch RFA previously. Today she complains of neck pain with radiation to the right upper extremity to the right hand with no numbness or tingling in the upper extremities. She Also denies any bowel or bladder dysfunction. He states that her neck pain has been on all for the last year or so but in the last 2 weeks it has been more severe than previously. Takes Joy 10 mg 4 times a day usually. Physical exam she is alert oriented 3 in no apparent distress. She has normal range of motion of the cervical spine with more pain with right rotation. She has normal muscle strength in the upper extremities. The last MRI of the cervical spine that was done in 2014 showed degenerative disc disease especially at the C5-C6 level with mild to moderate right and mild left-sided neural foraminal stenosis. At this timewe will observe the patient's symptoms and if they are getting worse then she might benefit from getting cervical epidural steroid injection under fluoroscopic guidance. I will continue her prescription for Joy up to 4 pills a day for now because of this increasing neck pain however the plan will be to go down to 3 pills a day on her next visit.
== END | disposition home or self-care (01) ==
LOC: PNWHC3 11:41
PROVIDERS: ATTEND Anesthesiology
DX: M99.71 Connective tissue and disc stenosis of intervertebral foramina of cervical region (principal); M50.322 Other cervical disc degeneration at C5-C6 level; Z79.899 Other long term (current) drug therapy
CPT/HCPCS: 99211

== ENCOUNTER → 2017-07-31 | Outpatient (CLI) | payer OTHER ==
[2017-07-31 13:04] VITALS: BP 121/56; PULSE 76; RESP 16
--- NOTE | 2017-07-31 13:20 | P.PN ---
Progress Note - Text Patient returns for followup for chronic back pain with radiation to bilateral LEs. Patient recently underwent MBBs and left lumbar RFA and left SIJ injections which have helped her significantly and is continuing to complain of neck pain and headaches but has still not had MRI done. Patient continues on [place] and Neurontin medications for pain with good relief, although [place] is still at #120 pills. Patient denies adverse drug effects from medications. Today, pt denies new-onset weakness, bowel/bladder incontinence, or any other signs or symptoms of cauda equina syndrome. There are no signs of acute intoxication, and no indications of medication diversion or overuse. In addition to above, 13-point review of systems is also negative for chest pain , shortness of breath, changes in vision, changes in hearing, new onset weakness , abdominal pain, diarrhea, extreme fatigue, malaise, fever, skin changes, homicidal or suicidal ideation, or bowel or bladder incontinence. Vital Signs: Reviewed in EMR Gen: WDWN, AAOx3, NAD HEENT: NCAT, EOMI, hearing grossly normal Pulm: resp unlabored Abd: soft, NT, ND Neck: supple, trachea midline +cervical facet tenderness, L > R ROM in flexion lumbar spine: reduced ROM in extension lumbar spine: reduced Lumbar paravertebral tenderness: + Facet loading: + bilateral SI joint tenderness: + bilateral L > R Cm's test: + L side, neg R side Straight leg raise: neg bilateral Neuro: CN II-XII grossly intact, muscle strength lower extremities PRESERVED Imaging: Reviewed in EMR Assessment: 1. lumbar spondylosis without myelopathy 2. lumbar postlaminectomy syndrome 3. sacroiliac joint dysfunction Plan: 1. Explanation: Opioid and psychological risk scores were reviewed. Diagnoses , prognoses, and multiple treatment options including but not limited to physical therapy, interventional therapies, adjuvant medical therapies, narcotic medication therapies, and surgery were discussed with the patient and all questions were answered to the patient's satisfaction. 2. Opioid agreement: Patient has previously signed narcotic agreement, and was orally counseled to not overuse, abuse, divert, or cell medications, and to take them as prescribed by only 1 healthcare provider. The patient was also counseled to store opioid medications in a safe and preferably locked location. Patient was also counseled against driving or operating heavy equipment while using narcotic medications and also to not use alcohol or any illicit or recreational drugs. The patient verbalized understanding that lack of compliance with any of the above and likely result in failure to renew narcotic prescriptions, possible discharge from the clinic, and possible legal ramifications thereafter if indicated. 3. Counseling: The patient was counseled extensively on SMOKING, BODY MASS INDEX, EXERCISE. Specifically, the patient was instructed regarding the importance of smoking cessation, weight control and exercise in the context of both chronic pain and overall health. 4. Procedures: none for now 5. Consultations: None 6. Investigations: MRI C-spine 7. Medications: [place] 10/325 #120 with no refill 8. Disposition: f/u for re-eval in 4 weeks with MRI C-spine PQRS measures: 1-Patient's medications are documented in the chart. 2-Tobacco use is positive/negative, counseling given 3-Patient has not had a pneumococcal vaccine. 4-Advanced care planning discussed, patient not eligible. 5-Opioid contract signed with the patient today. 6-Pain positive, follow-up visit or procedure scheduled 7-Patient's blood pressure measured and documented, WNL. 8-Patient's weight was measured, and body mass index ABOVE the normal limits, and counseling was done. Patient instructed to follow up with PCP. 9-Patient WAS NOT identified as an unhealthy alcohol user.
== END ==
LOC: PNWHC3 12:38
PROVIDERS: ATTEND Anesthesiology
DX: M47.816 Spondylosis without myelopathy or radiculopathy, lumbar region (principal); M53.3 Sacrococcygeal disorders, not elsewhere classified; M96.1 Postlaminectomy syndrome, not elsewhere classified; Z79.891 Long term (current) use of opiate analgesic; Z79.899 Other long term (current) drug therapy
CPT/HCPCS: 99211

== ENCOUNTER → 2017-08-16 | Outpatient (CLI) | payer OTHER ==
--- NOTE | 2017-08-16 23:10 | MR ---
EXAMINATION TYPE: MR cervical spine wo con DATE OF EXAM: 08/16/2017 COMPARISON: 01/19/2015 HISTORY: Neck and shoulder pain x1 year previous MRI on PACS TECHNIQUE: Multiplanar, multisequence images of the cervical spine were acquired. The cervical vertebra have normal alignment. There is mild narrowing and decreased signal in the disk s at C5-6 C6-7. Cervical spinal cord has normal signal pattern. There is no evidence of edema. Brains tem appears normal. I see no focal bone destruction. There are small posterior disc bulges at C5-6 C6 -7. There is no cervical paraspinal mass. I see no spinal stenosis. IMPRESSION: Spondylotic change in the lower cervical spine is mild. Small posterior disc bulging at C5-6 and C6-7 . No change compared to old exam.
== END | disposition home or self-care (01) ==
LOC: RADMRIMAIN 21:07
PROVIDERS: ATTEND Anesthesiology
DX: M50.222 Other cervical disc displacement at C5-C6 level (principal); M47.812 Spondylosis without myelopathy or radiculopathy, cervical region
CPT/HCPCS: 72141

== ENCOUNTER → 2017-11-30 | Outpatient (CLI) | payer OTHER ==
[2017-11-30 11:40] VITALS: BP 129/74; PULSE 82; RESP 16
--- NOTE | 2017-11-30 11:55 | P.PN ---
Progress Note - Text Progress Note Date: 11/30/17 Progress Note Date: 08/28/17 This is a 56-year-old female working today for continued neck pain with radiation to the upper back area between her shoulders. This pain did not respond to a previous cervical epidural steroid injection. The patient denies any numbness or tingling in the upper extremities she also denies any bowel or bladder dysfunction or any weakness in the upper extremities. 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 The pain also radiates and gets her headache and also her pain is in the upper neck area and also in her head. The pain gets worse by rotating her neck. Patient denies adverse drug effects from medications. Today , pt denies new-onset weakness, bowel/bladder incontinence, or any other signs or symptoms of cauda equina syndrome. There are no signs of acute intoxication, and no indications of medication diversion or overuse. In addition to above, 13-point review of systems is also negative for chest pain , shortness of breath, changes in vision, changes in hearing, new onset weakness , abdominal pain, diarrhea, extreme fatigue, malaise, fever, skin changes, homicidal or suicidal ideation, or bowel or bladder incontinence. Vital Signs: Reviewed in EMR Gen: WDWN, AAOx3, NAD HEENT: NCAT, EOMI, hearing grossly normal Pulm: resp unlabored Neck: supple, trachea midline +cervical facet tenderness, R > L ROM in flexion lumbar spine: reduced ROM in extension lumbar spine: reduced Neuro: CN II-XII grossly intact, muscle strength lower extremities PRESERVED Assessment: 1. lumbar spondylosis without myelopathy 2. lumbar postlaminectomy syndrome 3. sacroiliac joint dysfunction 4. Cervical spondylosis without myelopathy/facet arthropathy Plan: 1. Explanation: Opioid and psychological risk scores were reviewed. Diagnoses , prognoses, and multiple treatment options including but not limited to physical therapy, interventional therapies, adjuvant medical therapies, narcotic medication therapies, and surgery were discussed with the patient and all questions were answered to the patient's satisfaction. 2. Opioid agreement: Patient has previously signed narcotic agreement, and was orally counseled to not overuse, abuse, divert, or cell medications, and to take them as prescribed by only 1 healthcare provider. The patient was also counseled to store opioid medications in a safe and preferably locked location. Patient was also counseled against driving or operating heavy equipment while using narcotic medications and also to not use alcohol or any illicit or recreational drugs. The patient verbalized understanding that lack of compliance with any of the above and likely result in failure to renew narcotic prescriptions, possible discharge from the clinic, and possible legal ramifications thereafter if indicated. 3. Counseling: The patient was counseled extensively on SMOKING, BODY MASS INDEX, EXERCISE. Specifically, the patient was instructed regarding the importance of smoking cessation, weight control and exercise in the context of both chronic pain and overall health. 4. Procedures: The patient has mostly axial neck pain and she did not respond to a previous cervical epidural steroid injection that's why I am changing back to cervical medial branch block bilaterally for C2, C3 and C4 plus a third occipital nerve block bilaterally under fluoroscopic guidance 5. Consultations: None 6. Investigations: none 7. Medications: [place] 10/325 #90 with one refill and Motrin refilled 8. Disposition: f/u for procedure as scheduled PQRS measures: 1-Patient's medications are documented in the chart. 2-Tobacco use is negative 3-Patient has not had a pneumococcal vaccine. 4-Advanced care planning discussed, patient not eligible. 5-Opioid contract signed with the patient. 6-Pain positive, follow-up visit or procedure scheduled 7-Patient's blood pressure measured and documented, WNL. 8-Patient's weight was measured, and body mass index ABOVE the normal limits, and counseling was done. Patient instructed to follow up with PCP. 9-Patient WAS NOT identified as an unhealthy alcohol user.
== END | disposition home or self-care (01) ==
LOC: PNWHC3 11:03
PROVIDERS: ATTEND Anesthesiology
DX: M96.1 Postlaminectomy syndrome, not elsewhere classified (principal); M47.812 Spondylosis without myelopathy or radiculopathy, cervical region; M47.816 Spondylosis without myelopathy or radiculopathy, lumbar region; M53.3 Sacrococcygeal disorders, not elsewhere classified
CPT/HCPCS: 99211

== ENCOUNTER 2017-12-21 08:08 | Day surgery (SDC) | payer OTHER ==
[2017-11-21 08:12] VITALS: BMI 35.9
[2017-12-21] MEDS: LACTATED RINGERS 1,000 ML IV SCH ×2 (08:33→09:01)
[2017-12-21 08:34] VITALS: TEMP 98
--- NOTE | 2017-12-21 09:23 | P.PCN ---
Date of Procedure: 12/21/17 Procedure(s) Performed: . PROCEDURE 1. Cervical epidural steroid injection under fluoroscopic guidance, C6-7 2. Cervical epidurogram. PREOPERATIVE DIAGNOSIS: 1- Cervical Degenerative Disc Diseases 2--cervical spondylosis with cervical Facet arthropathy without myelopathy POSTOPERATIVE DIAGNOSIS: : 1- Cervical Degenerative Disc Diseases , 2-,cervical spondylosis with cervical Facet arthropathy without myelopathy ANESTHESIA: Local anesthesia with 1% lidocaine 2 ml , and moderate sedation with iv Fentanyl 100 mcg. EBL 0 PROCEDURE INDICATION: The patient with neck pain and radiculitis unresponsive to conservative treatment consents for procedure. PROCEDURE DESCRIPTION / TECHNIQUE: The patient was seen and identified in the preoperative area. Risks, benefits, complications, including but not limited to infections ,bleeding , allergic reactions to the medications ,and not complete pain releife, and alternatives were discussed with the patient, the patient agreed to proceed with the procedure and signed the consent. Patient was taken to the OR and time out was completed. The patient was placed in the prone position on the procedure table. A pillow was placed under the patients chest to increase the cervical interlaminar space. The cervical area was prepped and draped in the usual sterile fashion. Vital signs were closely monitored during the procedure. Conscious sedation was used during the procedure to decrease patients anxiety. Using anterior-posterior fluoroscopy, the C6-7 interlaminar space was identified and the skin over this site was marked and then infiltrated with 1% lidocaine subcutaneously. Subsequently, a 20-gauge 3-1/2-inch Tuohy epidural needle was inserted and advanced toward the epidural space by means of the `` hanging-drop technique and guided by AP and lateral fluoroscopy. The correct needle position in the epidural space was verified with the injection of 2 mL of the water soluble contrast dye [id number]-180 and observing an excellent epidurogram with the epidural spread of the dye, after negative aspiration for blood and CSF and in the absence of paresthesias. Again after negative aspiration, mixture containing 20 mg Dexamethasone and 2 ml of preservative- free normal saline injected and a washout of epidurogram was seen. Needle was withdrawn intact, skin was cleansed, and bandages were applied. Complications= none. Disposition= patient was placed in supine position and transferred to the recovery room area in stable condition and there was no evidence of upper or lower extremity motor or sensory deficit after the procedure patient was discharged from recovery room after discharge criteria met and home discharge instructions was given by the staff and patient will follow with the pain clinic in 2-4 weeks Note = according to the progress note patient was scheduled to have diagnostic medial branch block cervical area C2 3, C3 4, and bilateral third occipital nerve, but because patient prior authorization from the insurance, we didn't have it for today, she had only authorization to have cervical epidural steroid injection, he did cervical epidural steroid injection today and patient will follow up in the pain clinic in a few weeks, if she continued to have pain then we need to get prior authorization to do,bilateral medial branch block cervical area C2 3, C3 4 and bilateral third occipital nerve block. Patient given prescription refill for [place] 10/325 every 6 hours dispense 90, and prescription refill for Motrin 800 mg 3 times a day dispense 90
[2017-12-21 09:29] VITALS: RESP 16
[2017-12-21 09:41] VITALS: BP 100/58; PULSE 73
[2017-12-21] MEDS ORDERED: IV FLUID CONTINUATION 1,000 ML IV ONE (09:49)
--- NOTE | 2017-12-21 10:17 | FL ---
Fluoroscopy HISTORY: Pain 7 seconds fluoroscopy time supplied to the referring clinician. 1 intraoperative C-arm images docume nt the procedure. See dictated report from anesthesia.
== END 2017-12-21 09:59 | disposition home or self-care (01) ==
LOC: ORPAIN 08:08
PROVIDERS: ATTEND Specialist
DX: M47.22 Other spondylosis with radiculopathy, cervical region (principal); M50.10 Cervical disc disorder with radiculopathy, unspecified cervical region
CPT/HCPCS: 62321; J1100; Q9965; J3010

== ENCOUNTER → 2018-01-17 | Outpatient (CLI) | payer OTHER ==
[2018-01-17 14:29] VITALS: BP 131/84; PULSE 79; RESP 18
--- NOTE | 2018-01-18 08:08 | P.PN ---
Subjective Progress Note Date: 01/17/18 This is 57 years old female with a chronic history of severe neck pain, and headache, she is diagnosed with cervical spondylosis, cervical degenerative disc disease, and occipital neuralgia, she was scheduled for bilateral medial branch block but the procedure was not approved by her insurance, and she needed prior authorization, we have done cervical epidural steroid injection, patient reported that she had minimal and short-lived benefit from it, and she continues to have severe neck pain and headache, she is currently on Topamax 400 mg daily, and Bowie 10/325 every 6 hours when necessary for breakthrough pain, she denies any side effects of the medication, she denies any excessive drowsiness or sleepiness, she denies any suicidal ideation, no motor or focal deficit, no change in the bowel movement or urination Objective - Vital Signs Vital signs: Vital Signs Temp Pulse 79 01/17/18 14:18 Resp 18 01/17/18 14:18 BP 131/84 01/17/18 14:18 Pulse Ox 95 01/17/18 14:18 Intake & Output 01/17/18 01/18/18 01/18/18 18:59 06:59 18:59 Weight 94.347 kg - Exam Physical Examinations : 1-Constitutiona : Cooperative , not in acute distress . 2-HEENT : nech ; supple , no Lymphadenopathy , normal thyroid size . eyes : no ptosis , no icterus, no photophobia . ENT : normal of hearing , normal oropharynx , no Thrush . 3- Respiratory : Chest clear to auscultations Bilaterally , no wheezing , no Rhonchi . 4- Cardiovascular : regular rate and rhythem , S1 , S2 , no S3 , no S4. 5- Gastrointestinal : abdomen soft no tenderness , bowel sounds positive all four quadrents , no organomegally . 6- Genitourinary : Defferred . 7- neurologic : Cranial nerve II to XII intact , no focal neurological deffecit . 8-psychatric : alert , oriented X 3 , appropriate affect , intact judgment and insight . 9-Lymphatic : no Lymphadenopathy . 10- musculoskeltal : cervical spine = motor stregnth in the deltoid and biceps, motor stregnth biceps and the wrist extensors (C6) . motor stregnth in the triceps muscle . deep tendon reflexes normal at the biceps , normal at Brachioradialis , normal at the Triceps positive cervical facet loading test . Tenderness over the occipital nerves bilaterally , Lumber spine = normal moter stegnth lower extremities ,thigh and legs .5/5 Assessment and Plan Plan: Assessment and plan= chronic neck pain and headaches secondary to cervical degenerative disc disease and cervical spondylosis, and occipital neuralgia ,status post cervical epidural steroid injections 1 , he had short-term and minimal benefit from it chronic and current use of high-risk medication (opioids) Patient denies any side effects of the current pain medication and the current treatment/medication ML and the patient to do activity of daily living , Diagnoses, prognosis, treatment options, including but not limited to physical therapy, medication management, interventional therapies, and surgery, were discussed with the patient All the questions answered Patient signed the narcotic agreement, and he was orally counseled, not to overuse, not to abuse, not to Divert , not tp sell pain medication, and to take it as prescribed only, Patient was counseled not to drive or operate heavy equipment while using narcotic medication, and advised not to use alcohol or any Illicit drugs while using the narcotis, the patient's verbalized understanding that lack of compliance with any of the above instructions and will likely to cause discharge from the pain service, not to renew his narcotic prescriptions Medication managements= patient will be given prescription refills for Bowie 10/325 every 6 hours dispense 120 with 1 refill., And Motrin 800 mg 3 times a day Patient will be good candidate to have diagnostic medial branch block cervical area C2 3, C3 4 , and bilateral 3 rd occipital nerve block , x2 , and if she has a good result and she will be good candidate to have a radiofrequency ablation of the nerve mentioned above , Time with Patient: Less than 30
== END | disposition home or self-care (01) ==
LOC: PNWHC3 13:57
DX: G89.29 Other chronic pain (principal); M50.30 Other cervical disc degeneration, unspecified cervical region; M47.812 Spondylosis without myelopathy or radiculopathy, cervical region; M54.81 Occipital neuralgia; Z79.899 Other long term (current) drug therapy; Z98.890 Other specified postprocedural states; Z79.891 Long term (current) use of opiate analgesic
CPT/HCPCS: 99211

== ENCOUNTER 2018-02-20 06:56 | Day surgery (SDC) | payer OTHER ==
[2018-02-20 07:37] VITALS: RESP 16; TEMP 98.6
[2018-02-20] MEDS ORDERED: LACTATED RINGERS 1,000 ML IV ONE (07:38)
--- NOTE | 2018-02-20 08:13 | P.PCN ---
Date of Procedure: 02/20/18 Condition: stable Disposition: PACU Description of Procedure: Procedure: Bilateral Cervical Facet Joint/Medial Branch Block under biplanar fluoroscopy Indications: Cervical Spondylosis, Cervicogenic Headaches, Occiptal Neuralgia Surgeon: Dr. Farrar IV sedation with: versed The patient was seen and examined in the PO. Procedure risks and benefits were fully reviewed with patient. The patient understands this is a diagnostic as well as a therapeutic procedure and that the goal of the procedure is to inject medication into the medial branch or small nerves that go into the facet joints. In this way, we can hopefully identify which of these joints, if any, may be contributing to their pain. Informed consent for the procedure was obtained. The patient was taken into the office fluoroscopy procedure room and placed lateral on the table. Vital signs were closely monitored during the procedure. The skin over the area was prepped with Betadine X 3 and draped in usual sterile manner. Sterile technique was observed throughout procedure. Under fluoroscopic guidance, the target injection areas of the TON, C2-3, C3-4 medial branch nerves were visualized in AP, oblique and lateral views. Lidocaine 1% was used with a 25 gauge needle to achieve adequate local anesthesia of the skin and subcutaneous tissue. Using biplanar fluoroscopy, a 25 gauge 3.5 inch spinal needle was inserted into proper position where the tip of the needle was located at the midpoint of the quadrangle at each level, and at the juction of C2-3. After negative aspiration for blood and CSF, solution of 4ml 0.25% Marcaine + 10mg/ml dexamethatsone with 0.5 cc injected at each of the targeted areas. The same procedure was performed on the right side. The needles were withdrawn intact. No complications were noted during the procedure. The patient tolerated procedure well. The patient was placed in supine position and transferred to the recovery area for observation and remained stable until discharged home. Home discharge instructions given to the patient by the staff. The patient was reexamined prior to discharge. Repeat in 2-4 weeks. Comments: Repeat in 2-4 weeks TON, C2-3, C3-C4 Medial Branch Block
[2018-02-20] MEDS ORDERED: IV FLUID CONTINUATION 1,000 ML IV ONE (08:36)
--- NOTE | 2018-02-20 08:40 | FL ---
EXAMINATION TYPE: FL guided pain mgmt statistic DATE OF EXAM: 02/20/2018 HISTORY: Flouroscopy time 16 seconds of fluoroscopy provided. IMPRESSION: 1. Fluoroscopy time.
[2018-02-20 08:59] VITALS: BP 119/65; PULSE 74
--- NOTE | 2018-02-26 06:30 | CDI ---
Date: 02/26/18 CDS/Anesthesiology Crna Name: Joya Vann Phone: If any questions, call Rita Pressley Lunchroom Mother at [phone] Patient Name: Melinda Faith Admit Date: 02/20/18 Discharge Date: 02/20/18 ATTENTION: The [facility] Coding Staff appreciate your assistance in clarifying documentation. Please respond to the clarification below the line at the bottom and electronically sign. The [facility] Coding staff will review the response and follow-up if needed. Please note: Queries are made part of the Legal Health Record. If you have any questions, please contact the Lunchroom Mother. Dear Dr. Farrar, Please provide clarification for the type of sedation used. Procedure Note states IV versed was given. On Pain Procedure Record nothing is checked under "Anesthesia Plan." Please clarify if this was moderate/conscious sedation. Thank you for your kind consideration. MTDD
--- NOTE | 2018-03-20 13:40 | CDI ---
Date: 03/20/18 CDS/Slurry Tank Tender Name: Phone: If any questions, call Rita Pressley Php Website Developer at [phone] Patient Name: Melinda Faith Admit Date: 02/20/18 Discharge Date: 02/20/18 ATTENTION: The [facility] Coding Staff appreciate your assistance in clarifying documentation. Please respond to the clarification below the line at the bottom and electronically sign. The [facility] Coding staff will review the response and follow-up if needed. Please note: Queries are made part of the Legal Health Record. If you have any questions, please contact the Php Website Developer. Dear Dr. Farrar, Please provide clarification for the type of sedation provided. Procedure Note states IV versed was given. On the Pain Procedure Record under Anesthesia Plan, nothing is checked. Please clarify if Moderate/Conscious sedation was provided. Thank you for your quick response to the previous query. However, in order for your comments to be considered part of the patient's permanent record, please type your response below the line at the bottom of this query form. Thank you for your kind consideration. MTDD
--- NOTE | 2018-03-27 10:02 | CDI ---
Date: 03/27/18 CDS/Wet Mixer Name: Joya Vann Phone: If any questions, call Rita Pressley Advertising Director at [phone] Patient Name: Melinda Faith Admit Date: 02/20/18 Discharge Date: 02/20/18 ATTENTION: The [facility] Coding Staff appreciate your assistance in clarifying documentation. Please respond to the clarification below the line at the bottom and electronically sign. The [facility] Coding staff will review the response and follow-up if needed. Please note: Queries are made part of the Legal Health Record. If you have any questions, please contact the Advertising Director. Dear Dr. Farrar, Please provide clarification for the type of sedation provided. Procedure Note states IV versed was given. But on the Pain Procedure Record under Anesthesia Plan, nothing is checked. Please clarify if Moderate/Conscious sedation was provided. Yes or No. Thank you for your quick response to the previous query. However, in order for your comments to be considered part of the patient's permanent record, please type your response below the line at the bottom of this query form. Thank you for your kind consideration. MTDD
== END 2018-02-20 09:14 | disposition home or self-care (01) ==
LOC: ORPAIN 06:56
PROVIDERS: ATTEND Anesthesiology
DX: M47.812 Spondylosis without myelopathy or radiculopathy, cervical region (principal)
CPT/HCPCS: 64490; 64491; J2250; J1100; 99152

== ENCOUNTER → 2018-03-06 | Outpatient (CLI) | payer OTHER ==
[2018-03-06 11:54] VITALS: BP 120/74; PULSE 98; RESP 16
--- NOTE | 2018-03-06 12:28 | P.PN ---
Progress Note - Text Progress Note Date: 03/06/18 Patient returns for followup for chronic back pain with radiation to bilateral LEs. Patient recently had good relief with CMBB x2, but is complaining of severe groin and hip pain that began approximately three weeks ago without any particular inciting incident. Patient continues on [place] and Neurontin medications for pain with good relief, although Claremont is still at #120 pills. Patient denies adverse drug effects from medications. Today, pt denies new- onset weakness, bowel/bladder incontinence, or any other signs or symptoms of cauda equina syndrome. There are no signs of acute intoxication, and no indications of medication diversion or overuse. In addition to above, 13-point review of systems is also negative for chest pain , shortness of breath, changes in vision, changes in hearing, new onset weakness , abdominal pain, diarrhea, extreme fatigue, malaise, fever, skin changes, homicidal or suicidal ideation, or bowel or bladder incontinence. Vital Signs: Reviewed in EMR Gen: WDWN, AAOx3, NAD HEENT: NCAT, EOMI, hearing grossly normal Pulm: resp unlabored Abd: soft, NT, ND Neck: supple, trachea midline Lower extremity: + Cm's R side, + tenderness over R greater trochanter; decreased ROM right hip in flexion and extension due to pain Imaging: MRI cervical spine without contrast dated 08/16/2017 demonstrates mild narrowing and decreased signal in the disks at C5-C6 and C6-C7. There is small posterior disc bulges at C5-C6 and C6-C7 but no cervical paraspinal mass. There is mild spondylosis in the lower cervical spine. Assessment: 1. lumbar spondylosis without myelopathy 2. lumbar postlaminectomy syndrome 3. sacroiliac joint dysfunction 4. hip OA Plan: 1. Explanation: Opioid and psychological risk scores were reviewed. Diagnoses , prognoses, and multiple treatment options including but not limited to physical therapy, interventional therapies, adjuvant medical therapies, narcotic medication therapies, and surgery were discussed with the patient and all questions were answered to the patient's satisfaction. 2. Opioid agreement: Patient has previously signed narcotic agreement, and was orally counseled to not overuse, abuse, divert, or cell medications, and to take them as prescribed by only 1 healthcare provider. The patient was also counseled to store opioid medications in a safe and preferably locked location. Patient was also counseled against driving or operating heavy equipment while using narcotic medications and also to not use alcohol or any illicit or recreational drugs. The patient verbalized understanding that lack of compliance with any of the above and likely result in failure to renew narcotic prescriptions, possible discharge from the clinic, and possible legal ramifications thereafter if indicated. 3. Counseling: The patient was counseled extensively on SMOKING, BODY MASS INDEX, EXERCISE. Specifically, the patient was instructed regarding the importance of smoking cessation, weight control and exercise in the context of both chronic pain and overall health. 4. Procedures: R hip intra-articular injection + R troch bursa injection 5. Consultations: None 6. Investigations: none 7. Medications: [place] 10/325 #60 with no refill (to be combined with patient's current script for #120 for total of #180, which is two months' supply for this patient) 8. MME/day: 30 (unchanged) 8. Disposition: f/u for procedure as scheduled PQRS measures: 1-Patient's medications are documented in the chart. 2-Tobacco use is negative 3-Patient has not had a pneumococcal vaccine. 4-Advanced care planning discussed, patient not eligible. 5-Opioid contract signed with the patient. 6-Pain positive, follow-up visit or procedure scheduled 7-Patient's blood pressure measured and documented, WNL. 8-Patient's weight was measured, and body mass index ABOVE the normal limits, and counseling was done. Patient instructed to follow up with PCP. 9-Patient WAS NOT identified as an unhealthy alcohol user.
== END | disposition home or self-care (01) ==
LOC: PNWHC3 11:36
PROVIDERS: ATTEND Anesthesiology
DX: G89.29 Other chronic pain (principal); M54.9 Dorsalgia, unspecified; M47.816 Spondylosis without myelopathy or radiculopathy, lumbar region; M96.1 Postlaminectomy syndrome, not elsewhere classified; M16.10 Unilateral primary osteoarthritis, unspecified hip; M53.88 Other specified dorsopathies, sacral and sacrococcygeal region; Z79.899 Other long term (current) drug therapy; Z79.891 Long term (current) use of opiate analgesic
CPT/HCPCS: 80356; 99211

== ENCOUNTER 2018-03-29 09:25 | Day surgery (SDC) | payer OTHER ==
[2018-03-20 16:02] VITALS: BMI 33.9
[~2018-03-29 09:25] MED LIST changes: -DEXAMETHASONE SOD PHOSPHATE 10 MG/ML 1 ML VIAL IV ONE; -HEPARIN SODIUM,PORCINE 5,000 UNIT/ML 1 ML VIAL SQ ONE; -LACTATED RINGERS 1,000 ML IV ONE; +LACTATED RINGERS 1,000 ML IV SCH; -MIDAZOLAM 2 MG/2 ML VIAL IV PRN; -ONDANSETRON 4 MG/2 ML VIAL IVP ONE; -SCOPOLAMINE 1.5MG/72HR PATCH TRANSDERM ONE; -ceFAZolin 2 GM in SODIUM CHLORIDE 0.9% 100 ML IVPB ONE
[2018-03-29 09:56] VITALS: RESP 16; TEMP 98.3
[2018-03-29] MEDS ORDERED: LIDOCAINE 1% 20 ML VIAL (10MG/ML) FOR IV START INTRADERMA ONE (10:00)
--- NOTE | 2018-03-29 11:21 | P.PCN ---
Date of Procedure: 03/29/18 Surgeon: Gilson Bansal Description of Procedure: Preoperative diagnoses = right hip joint osteoarthritis. Postoperative diagnoses= same Procedure= intra-articular right hip injection with fluoroscopy Anesthesia= local anesthetic with lidocaine 1% Procedure indication= patient with a history of severe hip pain secondary to osteoarthritis which is not responsive to the conservative treatment. Description of the procedure= patient was seen and identified in the preoperative holding area, risk and benefits , complications ,and alternatives of the procedure were discussed with the patient and patient agreed with the preceding, patient signed the consent and IV was started and vital signs were monitored throughout the procedure and it was stable. The patient was taken to the operating room and placed in supine position the groin area was prepped with chlorhexidine 3 and draped with the standard fashion, a needle was advanced through the skin and subcutaneous tissue from lateral to medial into the hip joint. After negative aspiration,.the solution of 3 cc lidocaine with 40 mg of Kenalog injected. The patient tolerated the procedure well without any complications. As the needle was withdrawn from the joint, it was then directed into the trochanteric bursa and a solution containing 2 mL of 1% lidocaine and 40 mg of Kenalog was injected after negative aspiration. The needle was then withdrawn intact. Complications= there was no acute complication identified. Disposition= patient was placed advanced supine position and transferred to recovery room in stable condition for observation and was discharged home after meeting discharge criteria, and discharge instruction was given and patient will follow up in the pain clinic in a few weeks
[2018-03-29] MEDS ORDERED: IV FLUID CONTINUATION 1,000 ML IV ONE (11:26)
[2018-03-29 11:29] VITALS: BP 108/69; PULSE 79
--- NOTE | 2018-03-29 14:40 | FL ---
Fluoroscopy HISTORY: Pain 1 seconds fluoroscopy time supplied to the referring clinician. 1 intraoperative C-arm images docume nt the procedure. See dictated report from anesthesia.
== END 2018-03-29 11:45 | disposition home or self-care (01) ==
LOC: ORPAIN 09:25
PROVIDERS: ATTEND Pain Medicine Pain Medicine
DX: M16.11 Unilateral primary osteoarthritis, right hip (principal)
CPT/HCPCS: 20610; J2001; J3010; 64483

== ENCOUNTER → 2018-05-01 | Outpatient (CLI) | payer OTHER ==
[2018-05-01 12:39] VITALS: BP 151/70; PULSE 98; RESP 18
--- NOTE | 2018-05-01 12:59 | P.PN ---
Progress Note - Text Progress Note Date: 05/01/18 Progress Note Date: 03/06/18 Patient returns for followup for chronic back pain with radiation to bilateral LEs. Patient recently had good relief with CMBB x2, but is complaining of severe groin and hip pain that began approximately 2 months ago without any particular inciting incident. She had a recent right hip IA injection that did not last longer than 3days. She has more complaints of greater trochanteric bursitis, cannot lay on the side at all because of pain, having difficulty sleeping. Patient appears to be in acute distress secondary to the pain. Patient continues on [place] and Neurontin. Patient denies adverse drug effects from medications. Today, pt denies new-onset weakness, bowel/bladder incontinence, or any other signs or symptoms of cauda equina syndrome. There are no signs of acute intoxication, and no indications of medication diversion or overuse. In addition to above, 13-point review of systems is also negative for chest pain , shortness of breath, changes in vision, changes in hearing, new onset weakness , abdominal pain, diarrhea, extreme fatigue, malaise, fever, skin changes, homicidal or suicidal ideation, or bowel or bladder incontinence. Vital Signs: Reviewed in EMR Gen: WDWN, AAOx3, NAD HEENT: NCAT, EOMI, hearing grossly normal Pulm: resp unlabored Abd: soft, NT, ND Neck: supple, trachea midline Lower extremity: + Cm's R side, + tenderness over R greater trochanter; decreased ROM right hip in flexion and extension due to pain Imaging: MRI cervical spine without contrast dated 08/16/2017 demonstrates mild narrowing and decreased signal in the disks at C5-C6 and C6-C7. There is small posterior disc bulges at C5-C6 and C6-C7 but no cervical paraspinal mass. There is mild spondylosis in the lower cervical spine. Assessment: 1. lumbar spondylosis without myelopathy 2. lumbar postlaminectomy syndrome 3. sacroiliac joint dysfunction 4. hip OA 5. Greater Trochanteric Bursitis. Plan: 1. Explanation: Opioid and psychological risk scores were reviewed. Diagnoses , prognoses, and multiple treatment options including but not limited to physical therapy, interventional therapies, adjuvant medical therapies, narcotic medication therapies, and surgery were discussed with the patient and all questions were answered to the patient's satisfaction. 2. Opioid agreement: Patient has previously signed narcotic agreement, and was orally counseled to not overuse, abuse, divert, or cell medications, and to take them as prescribed by only 1 healthcare provider. The patient was also counseled to store opioid medications in a safe and preferably locked location. Patient was also counseled against driving or operating heavy equipment while using narcotic medications and also to not use alcohol or any illicit or recreational drugs. The patient verbalized understanding that lack of compliance with any of the above and likely result in failure to renew narcotic prescriptions, possible discharge from the clinic, and possible legal ramifications thereafter if indicated. 3. Counseling: The patient was counseled extensively on SMOKING, BODY MASS INDEX, EXERCISE. Specifically, the patient was instructed regarding the importance of smoking cessation, weight control and exercise in the context of both chronic pain and overall health. 4. Procedures: R hip intra-articular injection + R troch bursa injection 5. Consultations: None 6. Investigations: none 7. Medications: [place] 10/325 #90 with no refill 8. MME/day: 30 (unchanged) 8. Disposition: Greater trochanteric bursa injection PQRS measures: 1-Patient's medications are documented in the chart. 2-Tobacco use is negative 3-Patient has not had a pneumococcal vaccine. 4-Advanced care planning discussed, patient not eligible. 5-Opioid contract signed with the patient. 6-Pain positive, follow-up visit or procedure scheduled 7-Patient's blood pressure measured and documented, WNL. 8-Patient's weight was measured, and body mass index ABOVE the normal limits, and counseling was done. Patient instructed to follow up with PCP. 9-Patient WAS NOT identified as an unhealthy alcohol user.
== END | disposition home or self-care (01) ==
LOC: PNWHC3 12:02
PROVIDERS: ATTEND Anesthesiology
DX: M47.816 Spondylosis without myelopathy or radiculopathy, lumbar region (principal); M96.1 Postlaminectomy syndrome, not elsewhere classified; M53.3 Sacrococcygeal disorders, not elsewhere classified; M16.9 Osteoarthritis of hip, unspecified; M70.60 Trochanteric bursitis, unspecified hip; Z79.891 Long term (current) use of opiate analgesic; Z79.899 Other long term (current) drug therapy
CPT/HCPCS: 99211

== ENCOUNTER 2018-05-09 07:32 | Day surgery (SDC) | payer OTHER ==
[2018-05-07 12:50] VITALS: BMI 36.8
[2018-05-09 08:26] VITALS: RESP 16; TEMP 98.3
[2018-05-09] MEDS ORDERED: LIDOCAINE 1% 20 ML VIAL (10MG/ML) FOR IV START INTRADERMA ONE (08:36)
--- NOTE | 2018-05-09 09:30 | P.PCN ---
Date of Procedure: 05/09/18 Procedure(s) Performed: Pre OP diagnoses= Right trochanteric bursitis . Postoperative diagnosis= Right trochanteric bursitis. Operation= Right trochanteric bursa steroid injection under fluoroscopy guidance. Anesthesia= local infiltration with lidocaine 1% 2 mL only . Complications= none . Description of the procedure= patient had history of severe low back pain and hip pain secondary to trochanteric bursitis for this reason patient was a good candidate to have right trochanteric bursa steroid injection which hopefully it will help his pain, risks and benefits of the procedure including but not limited to risk of infection and bleeding and not complete pain relief and ALLERGIC reaction to medication discussed with the patient and the alternative also discussed with the patient and he agreed with the preceding taken to the operating room placed in supine position , standard monitors applied patient and the right hip area prepped with chlorhexidine 3 times, and under sterile technique using 25-gauge needle for skin and subcutaneous tissue infiltration was first admitted the right trochanteric bursa injection at 22- gauge Quincke-type spinal needle advanced slowly under fluoroscopy and placed in the right trochanteric bursa needle placement confirmed with AP and lateral view and after appropriate needle placement confirmed under fluoroscopy 4 ML of Marcaine 0.5% mixed with 40 mg of Kenalog injected after negative aspiration for heme and there was no CSF and there was no paresthesia during the injection and needle removed and a dressing applied , patient tolerated the procedure well without any complication and she will follow up with the pain clinic in a few weeks and patient discharged home in stable condition
[2018-05-09] MEDS ORDERED: IV FLUID CONTINUATION 1,000 ML IV ONE ×2 (09:33)
[2018-05-09 09:54] VITALS: BP 118/76; PULSE 74
--- NOTE | 2018-05-09 10:20 | FL ---
Fluoroscopy HISTORY: Pain 1 seconds fluoroscopy time supplied to the referring clinician. 1 intraoperative C-arm images docume nt the procedure. See dictated report from anesthesia.
== END 2018-05-09 10:05 | disposition home or self-care (01) ==
LOC: ORPAIN 07:32
PROVIDERS: ATTEND Specialist
DX: M70.61 Trochanteric bursitis, right hip (principal); M47.812 Spondylosis without myelopathy or radiculopathy, cervical region
CPT/HCPCS: 77002; 20610; J3301

== ENCOUNTER 2018-05-23 09:51 | Day surgery (SDC) | payer OTHER ==
[2018-05-21 08:13] VITALS: BMI 32.3
[2018-05-23 12:09] VITALS: RESP 16; TEMP 97.9
[2018-05-23] MEDS ORDERED: LACTATED RINGERS 1,000 ML IV ONE (12:09)
[2018-05-23] MEDS ORDERED: LACTATED RINGERS 1,000 ML IV SCH ×2 (12:15→13:30)
--- NOTE | 2018-05-23 12:19 | P.GSHP ---
History of Present Illness H&P Date: 05/23/18 Patient returns for Trochanteric bursa injectionm right. had relief for 1 week with procedure 2 weeks ago +TTP trochanteric bursa +pain with hip flexion In addition to above, 13-point review of systems is also negative for chest pain , shortness of breath, changes in vision, changes in hearing, new onset weakness , abdominal pain, diarrhea, extreme fatigue, malaise, fever, skin changes, homicidal or suicidal ideation, or bowel or bladder incontinence. Vital Signs: Reviewed in EMR Gen: WDWN, AAOx3, NAD HEENT: NCAT, EOMI, hearing grossly normal Pulm: resp unlabored Abd: soft, NT, ND Neck: supple, trachea midline Lower extremity: + Cm's R side, + tenderness over R greater trochanter; decreased ROM right hip in flexion and extension due to pain Assessment: 1. lumbar spondylosis without myelopathy 2. lumbar postlaminectomy syndrome 3. sacroiliac joint dysfunction 4. hip OA 5. Greater Trochanteric Bursitis. Past Medical History Past Medical History: Fibromyalgia, Musculoskeletal Disorder Additional Past Medical History / Comment(s): gallstones, BACK PAIN History of Any Multi-Drug Resistant Organisms: None Reported Past Surgical History: Back Surgery, Section, Cholecystectomy Additional Past Surgical History / Comment(s): back surgery at age 16 for scoliosis(fusion), PAIN CLINIC PROCEDURES, COLONOSCOPY Past Anesthesia/Blood Transfusion Reactions: Motion Sickness Smoking Status: Never smoker - Past Family History Father Family Medical History: Cancer Mother History Unknown: Yes Family Medical History: Hypertension Medications and Allergies Home Medications Medication Instructions Recorded Confirmed Type PARoxetine HCL [Paxil] 40 mg PO DAILY 09/08/14 05/21/18 History Estradiol [Estrace] 1 mg PO HS 06/14/16 05/21/18 History Topiramate [Topamax] 400 tab PO HS 06/14/16 05/21/18 History Multivitamin [Multivitamins Adult 1 each PO DAILY 12/05/16 05/21/18 History Gummies] Cholecalciferol [Vitamin D3] 5,000 unit PO DAILY 05/09/17 05/21/18 History Magnesium Gluconate [Magonate] 500 mg PO DAILY 05/09/17 05/21/18 History Phentermine HCl [Adipex-P] 37.5 mg PO DAILY 11/21/17 05/21/18 History HYDROcodone/APAP 10-325MG [[place] 1 tab PO Q6H PRN #90 tab 01/17/18 05/21/18 Rx 10-325] Ibuprofen [Motrin] 800 mg PO TID PRN #90 tab 03/06/18 05/21/18 Rx Allergies Allergy/AdvReac Type Severity Reaction Status Date / Time No Known Allergies Allergy Verified 05/23/18 11:54 Surgical - Exam Vital Signs Temp Pulse Resp BP Pulse Ox 97.9 F 67 16 112/62 96 05/23/18 12:07 05/23/18 12:07 05/23/18 12:07 05/23/18 12:07 05/23/18 12:07
--- NOTE | 2018-05-23 12:20 | P.PCN ---
Date of Procedure: 05/23/18 Description of Procedure: Date of Procedure: 05/23/18 Procedure(s) Performed: Pre OP diagnoses: Right trochanteric bursitis . Postoperative diagnosis: Right trochanteric bursitis. Operation= Right trochanteric bursa steroid injection under fluoroscopy guidance. Anesthesia: local infiltration with lidocaine 1% 2 mL only . Complications: none . Description of the procedure: patient had history of severe low back pain and hip pain secondary to trochanteric bursitis for this reason patient was a good candidate to have right trochanteric bursa steroid injection which hopefully it will help his pain, risks and benefits of the procedure including but not limited to risk of infection and bleeding and not complete pain relief and ALLERGIC reaction to medication discussed with the patient and the alternative also discussed with the patient and he agreed with the preceding taken to the operating room placed in supine position , standard monitors applied patient and the right hip area prepped with chlorhexidine 3 times, and under sterile technique using 25-gauge needle for skin and subcutaneous tissue infiltration was first admitted the right trochanteric bursa injection at 22-gauge Quincke-type spinal needle advanced slowly under fluoroscopy and placed in the right trochanteric bursa needle placement confirmed with AP and lateral view and after appropriate needle placement confirmed under fluoroscopy 4 ML of Marcaine 0.5% mixed with 40 mg of Kenalog injected after negative aspiration for heme and there was no CSF and there was no paresthesia during the injection and needle removed and a dressing applied , patient tolerated the procedure well without any complication and she will follow up with the pain clinic in a few weeks and patient discharged home in stable condition
[2018-05-23] MEDS ORDERED: IV FLUID CONTINUATION 1,000 ML IV ONE (12:42)
[2018-05-23 12:58] VITALS: BP 112/72; PULSE 68
== END 2018-05-23 13:20 | disposition home or self-care (01) ==
LOC: ORPAIN 09:51
PROVIDERS: ATTEND Anesthesiology
DX: M70.61 Trochanteric bursitis, right hip (principal); M47.816 Spondylosis without myelopathy or radiculopathy, lumbar region; M96.1 Postlaminectomy syndrome, not elsewhere classified; M53.3 Sacrococcygeal disorders, not elsewhere classified; M16.10 Unilateral primary osteoarthritis, unspecified hip; M79.7 Fibromyalgia; Z79.890 Hormone replacement therapy; Z79.899 Other long term (current) drug therapy; Z98.1 Arthrodesis status; Z82.49 Family history of ischemic heart disease and other diseases of the circulatory system
CPT/HCPCS: 20610; J2250; J3301

== ENCOUNTER → 2018-05-29 | Outpatient (CLI) | payer OTHER ==
[2018-05-29 13:45] VITALS: BP 139/74; PULSE 83; RESP 18; TEMP 98.3
--- NOTE | 2018-05-29 14:18 | P.PAINPG ---
Subjective Progress Note Date: 05/29/18 Principal diagnosis: Right hip pain This 57-year-old woman with a history of chronic right hip pain. She is undergone multiple procedures to treat her trochanteric bursa as well as into her hip joint. None of these have afforded her any significant benefit. She continues to have severe pain in her right hip and is looking for counseling on further management. Objective - Vital Signs Vital signs: Vital Signs Temp 98.3 F 05/29/18 13:39 Pulse 83 05/29/18 13:39 Resp 18 05/29/18 13:39 BP 139/74 05/29/18 13:39 Pulse Ox Intake & Output 05/28/18 05/29/18 05/29/18 18:59 06:59 18:59 Weight 87.997 kg - Exam General: The patient is alert and oriented. Patient is not sedated Patient answers all question appropriately. Cardiac: Heart is regular in rate and rhythm Respiratory: Clear to auscultation. No audible wheezes. Abdomen: Soft nontender nondistended. Lower extremities: Strength is normal bilaterally. Sensation is normal bilaterally. Reflexes are preserved and symmetric bilaterally. Straight leg raise is negative bilaterally. She has significant pain with axial rotation of her leg including pain in the hip which radiates into the groin and down the anterior aspect of the hip. This is present on the right side. Assessment and Plan (1) Arthritis of right hip Current Visit: Yes Status: Acute Code(s): M16.11 - UNILATERAL PRIMARY OSTEOARTHRITIS, RIGHT HIP SNOMED Code(s): 96719084 Plan: Plan of Care 1. Medications: I will refill the patient's medications today. She has signed the start talking form. I have reviewed the patient's MAPS report and it reveals expected results. Patient has signed an opiate agreement as well as opiate consent for treatment in our clinic. They understand the risks and benefits of opiate medications. They are aware of the potential for addiction. 2. Interventions: No further interventions are indicated for this patient. She has not received any significant benefit from previous procedures. 3. Referrals: I recommended patient follow up with a hip specialist. I've encouraged her to follow up with her primary care physician to discuss choice of an orthopedist. 4. Testing: None 5. Psychological: She denies significant anxiety or depression. I will not refer her to a pain psychologist today. PQRS Measure Charge Sheet Measure #130: Documentation of Current Meds in Medical Chart: Patient's medications documented in chart Measure #226: Tobacco Use: Screen & Cessation Intervention: Pt not a tobacco user Measure #111: Pneumonia Vaccination: Pneumococcal vaccine NOT administered or previously given Measure #47: Advance Care Plan: Advance care planning discussed & documented, pt chose/unable to give Measure #412: Opioid Treatment Agreement: Documented signed opioid trtmnt agreemnt min once during opioid trtmnt Measure #408: Opioid Therapy Follow-up Evaluation: Patient had f/u eval minimum every 3 months during opioid therapy Measure #317: Preventitive Care & Scrn High Bld Press & F/U: Normal blood pressure, f/u not required Measure #128: Body Mass Index (BMI) Screening & Follow-up: BMI documented ABOVE normal parameters - f/u documented Measure #131: Pain Assessment & Follow-up: Pain positive & plan documented Measure #431: Unhealthy Alcohol Use Preventative Care & Scrn: Patient not identified as an unhealthy alcohol user PQRS Narrative: Smoking Status Never smoker Do You Want the Pneumonia No Vaccine AT THIS TIME? Narcotic Agreement Date Signed 06/14/16 Blood Pressure 139/74 Pain Intensity [Right Hip] 8 Hx Alcohol Use (MH) Yes: social Home Medications: Ambulatory Orders PARoxetine HCL [Paxil] 40 mg PO DAILY 09/08/14 Estradiol [Estrace] 1 mg PO HS 06/14/16 Topiramate [Topamax] 400 tab PO HS 06/14/16 Multivitamin [Multivitamins Adult Gummies] 1 each PO DAILY 12/05/16 Cholecalciferol [Vitamin D3] 5,000 unit PO DAILY 05/09/17 Magnesium Gluconate [Magonate] 500 mg PO DAILY 05/09/17 Phentermine HCl [Adipex-P] 37.5 mg PO DAILY 11/21/17 HYDROcodone/APAP 10-325MG [[place] 10-325] 1 tab PO Q6H PRN #90 tab 01/17/18 Ibuprofen [Motrin] 800 mg PO TID PRN #90 tab 03/06/18 Controlled Substance Measures - Controlled Substance Measures Is patient prescribed a controlled substance at discharge?: Yes When asked, does pt state using other controlled substances?: No If prescribed controlled substance>3 days was MAPS reviewed?: Yes If Rx opioid, was Start Talking consent form obtained?: Yes
== END | disposition home or self-care (01) ==
LOC: PNWHC3 13:19
PROVIDERS: ATTEND Pain Medicine Pain Medicine
DX: M16.11 Unilateral primary osteoarthritis, right hip (principal); Z79.3 Long term (current) use of hormonal contraceptives; Z79.899 Other long term (current) drug therapy
CPT/HCPCS: 99211

== ENCOUNTER → 2018-06-26 | Outpatient (CLI) | payer OTHER ==
[2018-06-26 14:07] VITALS: BP 110/76; PULSE 76; RESP 18
--- NOTE | 2018-06-26 14:58 | P.PAINPG ---
Subjective Progress Note Date: 06/26/18 Principal diagnosis: Right hip pain This is a very pleasant 57-year-old woman with a history of right hip pain. She is undergone trochanteric bursa injection which did not afford her significant benefit. She has seated hip green building design specialist. He is alert and MRI of her hip which has not been completed yet. She reports having pain in her right hip which radiates into her right groin into her anterolateral aspect of her leg. She denies any bowel or bladder dysfunction. She denies symptoms into her foot. She does have a history of back problems and previous injections have significant helps her symptoms. Objective - Vital Signs Vital signs: Vital Signs Temp Pulse 76 06/26/18 13:59 Resp 18 06/26/18 13:59 BP 110/76 06/26/18 13:59 Pulse Ox 97 06/26/18 13:59 Intake & Output 06/25/18 06/26/18 06/26/18 18:59 06:59 18:59 Weight 88.451 kg - Exam General: The patient is alert and oriented. Patient is not sedated Patient answers all question appropriately. Cardiac: Heart is regular in rate and rhythm Respiratory: Clear to auscultation. No audible wheezes. Abdomen: Soft nontender nondistended. Lower extremities: Strength is normal bilaterally. Sensation is normal bilaterally. Reflexes are preserved and symmetric bilaterally. Straight leg raise is negative bilaterally. Rotational movements of her hip both internal and external did not seem to provoke her symptoms. She has no tenderness to palpation over her trochanteric bursa on the right side. Leg extension tends to relieve her symptoms. Assessment and Plan (1) Lumbar spinal stenosis Narrative/Plan: Plan of Care 1. Medications: I will refill the patient's [place] prescription today. I have reviewed the patient's MAPS report and it reveals expected results. Patient has signed an opiate agreement as well as opiate consent for treatment in our clinic. They understand the risks and benefits of opiate medications. They are aware of the potential for addiction. 2. Interventions: She may benefit from a lumbar transforaminal epidural steroid injection or a right hip intra-articular injection depending on the workup from her green building design specialist. 3. Referrals: None 4. Testing: None 5. Follow-up: Patient will follow up in our clinic to discuss results from her MRI and her valuation by her green building design specialist. I think it is certainly possible that her hip and leg symptoms are coming from her back as she does have a previous history of this in her physical examination does not seem to fit her hip being the primary generator of her symptoms. Current Visit: Yes Status: Acute Code(s): M48.061 - SPINAL STENOSIS, LUMBAR REGION WITHOUT NEUROGENIC BLANCA SNOMED Code(s): 43421421 (2) Arthritis of right hip Current Visit: No Status: Acute Code(s): M16.11 - UNILATERAL PRIMARY OSTEOARTHRITIS, RIGHT HIP SNOMED Code(s): 99095029 (3) Lumbar spondylosis with myelopathy Current Visit: No Status: Chronic Code(s): M47.16 - OTHER SPONDYLOSIS WITH MYELOPATHY, LUMBAR REGION SNOMED Code(s): 34279237 (4) Postlaminectomy syndrome Current Visit: No Status: Chronic Code(s): M96.1 - POSTLAMINECTOMY SYNDROME , NOT ELSEWHERE CLASSIFIED SNOMED Code(s): 95709715 PQRS Measure Charge Sheet Measure #130: Documentation of Current Meds in Medical Chart: Patient's medications documented in chart Measure #226: Tobacco Use: Screen & Cessation Intervention: Pt not a tobacco user Measure #111: Pneumonia Vaccination: Pneumococcal vaccine NOT administered or previously given Measure #47: Advance Care Plan: Advance care planning discussed & documented, pt chose/unable to give Measure #412: Opioid Treatment Agreement: No documentation of signed opioid treatment agreement Measure #408: Opioid Therapy Follow-up Evaluation: Patient had f/u eval minimum every 3 months during opioid therapy Measure #317: Preventitive Care & Scrn High Bld Press & F/U: Pre-hypertensive or hypertensive BP documented, pt will f/u with PCP Measure #128: Body Mass Index (BMI) Screening & Follow-up: BMI documented ABOVE normal parameters - f/u documented Measure #131: Pain Assessment & Follow-up: Pain positive & plan documented Measure #431: Unhealthy Alcohol Use Preventative Care & Scrn: Patient not identified as an unhealthy alcohol user PQRS Narrative: Smoking Status Never smoker Do You Want the Pneumonia No Vaccine AT THIS TIME? Narcotic Agreement Date Signed 06/14/16 Blood Pressure 110/76 Pain Intensity [Right Hip] 6 Hx Alcohol Use (MH) Yes: social Home Medications: Ambulatory Orders PARoxetine HCL [Paxil] 40 mg PO DAILY 09/08/14 Estradiol [Estrace] 1 mg PO HS 06/14/16 Topiramate [Topamax] 400 tab PO HS 06/14/16 Multivitamin [Multivitamins Adult Gummies] 1 each PO DAILY 12/05/16 Cholecalciferol [Vitamin D3] 5,000 unit PO DAILY 05/09/17 Magnesium Gluconate [Magonate] 500 mg PO DAILY 05/09/17 Phentermine HCl [Adipex-P] 37.5 mg PO DAILY 11/21/17 HYDROcodone/APAP 10-325MG [[place] 10-325] 1 tab PO Q6H PRN #90 tab 01/17/18 Ibuprofen [Motrin] 800 mg PO TID PRN #90 tab 03/06/18 Controlled Substance Measures - Controlled Substance Measures Is patient prescribed a controlled substance at discharge?: Yes When asked, does pt state using other controlled substances?: No If prescribed controlled substance>3 days was MAPS reviewed?: Yes If Rx opioid, was Start Talking consent form obtained?: Yes
== END | disposition home or self-care (01) ==
LOC: PNWHC3 13:33
PROVIDERS: ATTEND Pain Medicine Pain Medicine
DX: M25.551 Pain in right hip (principal); M16.11 Unilateral primary osteoarthritis, right hip; M48.061 Spinal stenosis, lumbar region without neurogenic claudication; M96.1 Postlaminectomy syndrome, not elsewhere classified; M47.16 Other spondylosis with myelopathy, lumbar region; Z79.891 Long term (current) use of opiate analgesic; Z79.1 Long term (current) use of non-steroidal anti-inflammatories (NSAID)
CPT/HCPCS: 99211

== ENCOUNTER → 2018-08-21 | Outpatient (CLI) | payer OTHER ==
[2018-08-21 14:12] VITALS: BP 113/59; PULSE 74; RESP 18
--- NOTE | 2018-08-22 09:16 | P.PAINPG ---
Subjective Progress Note Date: 08/21/18 This is a follow-up visit for this 57 years old female with a chronic history of , severe neck pain and headache , patient had MRI of the cervical spine showed cervical spondylitic changes and C5 6 C6 7 bulging disc disease, also patient had the chronic low back pain and she'll take [place] trochanteric bursitis, previously done right trochanteric bursa steroid injection which helped her low back pain, and also we did cervical epidural steroid injections, patient reported that she had only short-term benefit from it, she continued to have severe neck pain and headache, its happening daily, increased with any neck movement, she denies any upper or lower extremity weakness, she denies any fever or night sweats and she denies any change in the bowel movement or urination, she continued to use pain medication [place] 10/325 every 8 hours and Motrin 800 mg every 8 hours when necessary, she denies any side effects of the medication Objective - Vital Signs Vital signs: Vital Signs Temp Pulse 74 08/21/18 13:55 Resp 18 08/21/18 13:55 BP 113/59 08/21/18 13:55 Pulse Ox Intake & Output 08/21/18 08/22/18 08/22/18 18:59 06:59 18:59 Weight 90.718 kg - Exam Physical Examinations : 1-Constitutiona : Cooperative , not in acute distress . 2-HEENT : nech ; supple , no Lymphadenopathy , normal thyroid size . eyes : no ptosis , no icterus, no photophobia . ENT : normal of hearing , normal oropharynx , no Thrush . 3- Respiratory : Chest clear to auscultations Bilaterally , no wheezing , no Rhonchi . 4- Cardiovascular : regular rate and rhythem , S1 , S2 , no S3 , no S4. 5- Gastrointestinal : abdomen soft no tenderness , bowel sounds , no organomegally . 6- Genitourinary : Defferred . 7- neurologic : Cranial nerve II to XII intact , no focal neurological deffecit . 8-psychatric : alert , oriented X 3 , appropriate affect , intact judgment and insight . 9-Lymphatic : no Lymphadenopathy . 10- musculoskeltal : Cervical Spine motor stregnth in the deltoid and biceps, normal right side , normal Left side motor stregnth biceps and the wrist extensors normal right side ,normal left side . motor stregnth in the triceps muscle . normal Right side , normal Left side deep tendon reflexes normal at the biceps , normal at Brachioradialis , normal at triceps. positive cervical facet loading test . Severe tenderness over the occipital nerve bilaterally Lumber spine moter stegnth lower extremities , thigh and legs 5/5 Right side , 5/5 Left side Assessment and Plan Plan: Assessment and plan= chronic low back pain secondary to right trochanteric bursitis , low back pain improved after the right to come thick bursa steroid injection Chronic neck pain and headaches secondary to , cervical spondylosis with cervical facet arthropathy, and occipital neuralgia Patient will be good candidate to have bilateral medial branch block cervical area C2 3, C3 4, and third occipital nerve chronic and current use of high-risk medication (opioids) Patient denies any side effects of the current pain medication and the current treatment/medication helping the patient to do activity of daily living , Diagnoses, prognosis, treatment options, including but not limited to physical therapy, medication management, interventional therapies, and surgery, were discussed with the patient All the questions answered The narcotic consent was signed and patient agreed and understood the side effects and complications of opioid treatment. Patient signed the narcotic agreement, and was orally counseled, not to overuse, not to abuse, not to Divert , not tp sell pain medication, and to take it as prescribed only, Patient was counseled not to drive or operate heavy equipment while using narcotic medication, and advised not to use alcohol or any Illicit drugs while using the narcotis. understanding that lack of compliance with any of the above instructions, will likely to cause discharge from, the pain service, not to renew his narcotic prescriptions MAPS Reviwed and it was apropriate . Medication managements= patient will be given prescription refills for [place] 07/6025 every 8 hours dispense 90 with 1 refill and Motrin 800 mg 3 times a day dispensed 90 with 1 refill , PQRS Measure Charge Sheet Measure #130: Documentation of Current Meds in Medical Chart: Patient's medications documented in chart Measure #226: Tobacco Use: Screen & Cessation Intervention: Pt not a tobacco user Measure #111: Pneumonia Vaccination: Pneumococcal vaccine NOT administered or previously given Measure #47: Advance Care Plan: Advance care planning discussed & documented, pt chose/unable to give Measure #412: Opioid Treatment Agreement: Documented signed opioid trtmnt agreemnt min once during opioid trtmnt Measure #408: Opioid Therapy Follow-up Evaluation: Patient had f/u eval minimum every 3 months during opioid therapy Measure #317: Preventitive Care & Scrn High Bld Press & F/U: Normal blood pressure, f/u not required Measure #128: Body Mass Index (BMI) Screening & Follow-up: BMI documented ABOVE normal parameters - f/u documented Measure #131: Pain Assessment & Follow-up: Pain positive & plan documented, Follow-up scheduled Measure #431: Unhealthy Alcohol Use Preventative Care & Scrn: Patient not identified as an unhealthy alcohol user PQRS Narrative: Smoking Status Never smoker Do You Want the Pneumonia No Vaccine AT THIS TIME? Narcotic Agreement Date Signed 06/14/16 Blood Pressure 113/59 Pain Intensity [Lower Back] 6 Pain Intensity [Back] 3 Pain Intensity [Neck] 6 Hx Alcohol Use (MH) Yes: social Home Medications: Ambulatory Orders PARoxetine HCL [Paxil] 40 mg PO DAILY 09/08/14 Estradiol [Estrace] 1 mg PO HS 06/14/16 Topiramate [Topamax] 400 tab PO HS 06/14/16 Multivitamin [Multivitamins Adult Gummies] 1 each PO DAILY 12/05/16 Cholecalciferol [Vitamin D3] 5,000 unit PO DAILY 05/09/17 Magnesium Gluconate [Magonate] 500 mg PO DAILY 05/09/17 HYDROcodone/APAP 10-325MG [[place] 10-325] 1 tab PO Q8H PRN #90 tab 08/21/18 HYDROcodone/APAP 10-325MG [[place] 10-325] 1 tab PO Q8HR PRN 30 Days #90 tab 08/21 Ibuprofen [Motrin] 800 mg PO TID PRN #90 tab 08/21/18 Potassium Chloride 8 meq PO DAILY 08/21/18 Controlled Substance Measures - Controlled Substance Measures Is patient prescribed a controlled substance at discharge?: Yes When asked, does pt state using other controlled substances?: No If prescribed controlled substance>3 days was MAPS reviewed?: Yes If Rx opioid, was Start Talking consent form obtained?: Yes If opioid is for acute pain is fill amount 7 days or less?: No Was information provided regarding opioid addiction?: Yes
== END | disposition home or self-care (01) ==
LOC: PNWHC3 13:43
PROVIDERS: ATTEND Specialist
DX: G89.29 Other chronic pain (principal); M99.71 Connective tissue and disc stenosis of intervertebral foramina of cervical region; M47.812 Spondylosis without myelopathy or radiculopathy, cervical region; M54.81 Occipital neuralgia; M70.61 Trochanteric bursitis, right hip; Z79.899 Other long term (current) drug therapy
CPT/HCPCS: 99211

== ENCOUNTER → 2018-09-19 | Outpatient (CLI) | payer OTHER ==
[2018-09-19 14:16] VITALS: BP 154/89; PULSE 82; RESP 16
--- NOTE | 2018-09-19 14:33 | P.PN ---
Subjective Progress Note Date: 09/19/18 This is a 57-year-old lady with history of occipital headache and neck pain with radiation to both shoulders. The patient states that her headache gets worse with neck movement. Her headache is worse than her lower neck and shoulders pain. The patient denies any weakness in the upper or lower extremities or any bowel or bladder dysfunction. By physical exam she is alert oriented 3 in no apparent distress She has significant tenderness in the occipital area bilaterally and in the upper neck paravertebral musculature. She has milder tenderness in the lower neck and trapezius muscles bilaterally. Neuro exam of the upper extremities showed normal and symmetrical muscle strength and normal and symmetrical biceps reflexes bilaterally however she has absent triceps reflexes bilaterally. Diagnosis Cervicogenic headache Cervical spondylosis without myelopathy Opioid dependence Plan Schedule for a diagnostic cervical medial branch block for the medial branches of C2, C3 and the third occipital nerve bilaterally under fluoroscopic guidance. If she gets good pain relief then we will plan on doing RFA for these levels. In the future she might also benefit from getting diagnostic medial branch block for the lower levels of her neck see 4,5,6 and 7. Objective - Vital Signs Vital signs: Vital Signs Temp Pulse 82 09/19/18 14:12 Resp 16 09/19/18 14:12 BP 154/89 09/19/18 14:12 Pulse Ox 97 09/19/18 14:12 Intake & Output 09/18/18 09/19/18 09/19/18 18:59 06:59 18:59 Weight 90.718 kg
== END | disposition home or self-care (01) ==
LOC: PNWHC3 14:00
PROVIDERS: ATTEND Anesthesiology
DX: M47.812 Spondylosis without myelopathy or radiculopathy, cervical region (principal); R51 Headache; F11.20 Opioid dependence, uncomplicated
CPT/HCPCS: 99211

== ENCOUNTER → 2018-09-25 | Day surgery (SDC) | payer OTHER ==
[~2018-09-25] MED LIST changes: -LACTATED RINGERS 1,000 ML IV SCH; +SODIUM CHLORIDE 0.9% 250 ML IV ONE
[2018-09-25 06:28] VITALS: RESP 18
[2018-09-25 07:55] VITALS: TEMP 98
[2018-09-25 08:09] VITALS: BP 131/69; PULSE 72
--- NOTE | 2018-09-25 08:11 | P.PCN ---
Date of Procedure: 09/25/18 Procedure(s) Performed: PREOPERATIVE DIAGNOSIS: 1-Cervical Spondylosis with Facet Arthropathy.without myelopathy 2-cervicogenic headache. 3-occipital neuralgia POSTOPERATIVE DIAGNOSIS= same as preoperative diagnosis. PROCEDURES: Diagnostic Bilateral C2-3 , C3-4 medial branch blocks, with fluoroscopic guidance. Diagnostic bilateral Third occipital nerve block under fluoroscopy guidance ANESTHESIA: moderate sedation with Versed. 2 mg , and fentanyl 50 micrograms EBL: Minimal PROCEDURE INDICATION: The patient with neck pain and headache ,secondary to cervical arthropathy unresponsive to more conservative treatments. The exam was positive for severe pain and tenderness over the occipital nerve bilaterally and patient had severe neck pain with the neck movement. And exam was positive for cervical facet loading test PROCEDURE DESCRIPTION / TECHNIQUE: The patient was seen and identified in the preoperative area. Risks, benefits, complications, and alternatives were discussed with the patient, the patient agreed to proceed with the procedure and signed the consent. IV was started. Vital signs remained stable throughout the procedure. Patient was taken to the OR and time out was completed. The patient was placed in the prone position on the procedure table. A pillow was placed under the patients chest to increase the cervical interlaminar space. The cervical area was prepped and draped in the usual sterile fashion. Critical pause was taken. Vital signs were closely monitored during the procedure. Conscious sedation was used during the procedure to decrease patients anxiety. Using cross-table lateral fluoroscopy, the centroid of the trapezoid of right C2 ,C3, was identified, marked, and localized with 1% lidocaine 1 ml at each level for skin and Sub Q infiltrations . Subsequently, a 25 G 2 spinal needle was advanced guided by fluoroscopy to the centroid of the trapezoid of Right C2 , C3, [place] tip position was confirmed at the centroid of the trapezoids of Right C2 , C3 with anteroposterior fluoroscopy. Subsequently, 1 ml of preservative-free Ropivacaine 0.5% mixed with Depo-medrol 10 mg and half ml of the mixture was injected after negative aspiration for blood and CSF. [place] was then removed intact , then to do the right side third occipital nerve block 25-gauge spinal needle advanced slowly under fluoroscopy and placed at the middle of the facet joint that is from between the C2 and C3 vertebral , needle placement confirmed with AP and Lateral view , then after appropriate needle placement confirmed ropivacaine 0.5% half mL and 10 mg of Depo-Medrol mixed together and injected after negative aspiration , the needle was removed intact ,and then ,the same procedure was repeated at the left C2-3 ,C3-4, levels. and For the left third occipital nerve COMPLICATIONS: No acute complications. DISPOSITION / PLANS: The patient was placed in a supine position and transferred to the recovery area in a stable condition for observation and was discharged from the recovery room after meeting discharge criteria. Home discharge instructions given to the patient by the staff. The patient was reexamined prior to discharge. The patient will schedule a follow up in the clinic in 2-4 weeks. The same procedure was done in January 2018 patient reported that she had significant improvement of her neck pain and headache after that procedure, and if patient gets more than 50% improvement of her neck pain and headache and she will be good candidate to have radiofrequency ablation of the medial branch at the levels mentioned above.
--- NOTE | 2018-09-25 08:19 | FL ---
EXAMINATION TYPE: FL guided pain mgmt statistic DATE OF EXAM: 09/25/2018 HISTORY: Flouroscopy time 28 seconds of fluoroscopy provided. IMPRESSION: 1. Fluoroscopy time.
== END | disposition home or self-care (01) ==
LOC: ORPAIN 06:07
PROVIDERS: ATTEND Specialist
DX: M47.812 Spondylosis without myelopathy or radiculopathy, cervical region (principal); M54.81 Occipital neuralgia
CPT/HCPCS: 64490; 64491; 64450; J2250; J1030; J3010; 99152

== ENCOUNTER → 2018-10-11 | Outpatient (CLI) | payer OTHER ==
[2018-10-11 12:03] VITALS: BP 137/78; PULSE 77; RESP 16
--- NOTE | 2018-10-11 12:42 | P.PN ---
Subjective Progress Note Date: 10/11/18 This is a follow-up visit for this 57 years old female with a chronic history of , severe neck pain and headache , patient had MRI of the cervical spine showed cervical spondylitic changes and C5 6 C6 7 bulging disc disease, we did cervical epidural steroid injections, patient reported that she had only short- term benefit from it, she continued to have severe neck pain and headache, its happening daily, increased with any neck movement, she denies any upper or lower extremity weakness, she denies any fever or night sweats and she denies any change in the bowel movement or urination, recently we did diagnostic medial branch block cervical area C2 3 /C3 4 and bilateral third occipital nerve block ,she continued to use pain medication [place] 10/325 every 8 hours and Motrin 800 mg every 8 hours when necessary, she denies any side effects of the medication Physical Examinations : 1-Constitutiona : Cooperative , not in acute distress . 2-HEENT : nech ; supple , no Lymphadenopathy , normal thyroid size . eyes : no ptosis , no icterus, no photophobia . ENT : normal of hearing , normal oropharynx , no Thrush . 3- Respiratory : Chest clear to auscultations Bilaterally , no wheezing , no Rhonchi . 4- Cardiovascular : regular rate and rhythem , S1 , S2 , no S3 , no S4. 5- Gastrointestinal : abdomen soft no tenderness , bowel sounds , no organomegally . 6- Genitourinary : Defferred . 7- neurologic : Cranial nerve II to XII intact , no focal neurological deffecit . 8-psychatric : alert , oriented X 3 , appropriate affect , intact judgment and insight . 9-Lymphatic : no Lymphadenopathy . 10- musculoskeltal : Cervical Spine motor stregnth in the deltoid and biceps, normal right side , normal Left side motor stregnth biceps and the wrist extensors normal right side ,normal left side . motor stregnth in the triceps muscle . normal Right side , normal Left side deep tendon reflexes normal at the biceps , normal at Brachioradialis , normal at triceps. positive cervical facet loading test . Severe tenderness over the occipital nerve bilaterally Lumber spine moter stegnth lower extremities , thigh and legs 5/5 Right side , 5/5 Left side Assessment and plan= chronic low back pain secondary to right trochanteric bursitis , low back pain improved after the right to come thick bursa steroid injection Chronic neck pain and headaches secondary to , cervical spondylosis with cervical facet arthropathy, and occipital neuralgia Patien had diagnostic bilateral medial branch block cervical area C2 3, C3 4 , and third occipital nerve X1 and she had 100% improvement of her neck pain and headache after the block her VAS was 10 over 10 dropped to 0/10 after the block and the pain relief lasted for 2 days chronic and current use of high-risk medication (opioids) Patient denies any side effects of the current pain medication and the current treatment/medication helping the patient to do activity of daily living , Diagnoses, prognosis, treatment options, including but not limited to physical therapy, medication management, interventional therapies, and surgery, were discussed with the patient All the questions answered The narcotic consent was signed and patient agreed and understood the side effects and complications of opioid treatment. Patient signed the narcotic agreement, and was orally counseled, not to overuse, not to abuse, not to Divert , not tp sell pain medication, and to take it as prescribed only, Patient was counseled not to drive or operate heavy equipment while using narcotic medication, and advised not to use alcohol or any Illicit drugs while using the narcotis. understanding that lack of compliance with any of the above instructions, will likely to cause discharge from, the pain service, not to renew his narcotic prescriptions MAPS Reviwed and it was apropriate . Medication managements= patient will be given prescription refills for [place] 07/6025 every 8 hours dispense 90 with 1 refill and Motrin 800 mg 3 times a day dispensed 90 with 1 refill Interventions= the she'll be scheduled to have repeat diagnostic medial branch block cervical area at C2 3, C3 4, and third occipital nerve on the fluoroscopy guidance , PQRS Measure Charge Sheet Measure #130: Documentation of Current Meds in Medical Chart: Patient's medications documented in chart Measure #226: Tobacco Use: Screen & Cessation Intervention: Pt not a tobacco user Measure #111: Pneumonia Vaccination: Pneumococcal vaccine NOT administered or previously given Measure #47: Advance Care Plan: Advance care planning discussed & documented, pt chose/unable to give Measure #412: Opioid Treatment Agreement: Documented signed opioid trtmnt agreemnt min once during opioid trtmnt Measure #408: Opioid Therapy Follow-up Evaluation: Patient had f/u eval minimum every 3 months during opioid therapy Measure #317: Preventitive Care & Scrn High Bld Press & F/U: Normal blood pressure, f/u not required Measure #128: Body Mass Index (BMI) Screening & Follow-up: BMI documented ABOVE normal parameters - f/u documented Measure #131: Pain Assessment & Follow-up: Pain positive & plan documented, Follow-up scheduled Measure #431: Unhealthy Alcohol Use Preventative Care & Scrn: Patient not identified as an unhealthy alcohol user PQRS Narrative: Home Medications: Ambulatory Orders PARoxetine HCL [Paxil] 40 mg PO DAILY 09/08/14 Estradiol [Estrace] 1 mg PO HS 06/14/16 Topiramate [Topamax] 400 tab PO HS 06/14/16 Multivitamin [Multivitamins Adult Gummies] 1 each PO DAILY 12/05/16 Cholecalciferol [Vitamin D3] 5,000 unit PO DAILY 05/09/17 Magnesium Gluconate [Magonate] 500 mg PO DAILY 05/09/17 HYDROcodone/APAP 10-325MG [[place] 10-325] 1 tab PO Q8H PRN #90 tab 08/21/18 HYDROcodone/APAP 10-325MG [[place] 10-325] 1 tab PO Q8HR PRN 30 Days #90 tab 08/21 Ibuprofen [Motrin] 800 mg PO TID PRN #90 tab 08/21/18 Potassium Chloride 8 meq PO DAILY 08/21/18 - Controlled Substance Measures Is patient prescribed a controlled substance at discharge?: Yes When asked, does pt state using other controlled substances?: No If prescribed controlled substance>3 days was MAPS reviewed?: Yes If Rx opioid, was Start Talking consent form obtained?: Yes If opioid is for acute pain is fill amount 7 days or less?: No Was information provided regarding opioid addiction?: Yes
== END ==
LOC: PNWHC3 11:51
PROVIDERS: ATTEND Specialist
DX: G89.29 Other chronic pain (principal); M70.61 Trochanteric bursitis, right hip; M54.81 Occipital neuralgia; M54.2 Cervicalgia; R51 Headache; M47.812 Spondylosis without myelopathy or radiculopathy, cervical region; M46.92 Unspecified inflammatory spondylopathy, cervical region; Z79.899 Other long term (current) drug therapy; Z79.891 Long term (current) use of opiate analgesic; Z79.1 Long term (current) use of non-steroidal anti-inflammatories (NSAID)
CPT/HCPCS: 99211

== ENCOUNTER 2018-11-05 06:59 | Day surgery (SDC) | payer OTHER ==
[2018-11-05 07:39] VITALS: BP 133/69; PULSE 84; RESP 16; TEMP 97.9
[2018-11-05] MEDS ORDERED: LIDOCAINE 1% 20 ML VIAL (10MG/ML) FOR IV START INTRADERMA ONE (07:49)
[2018-11-05] MEDS ORDERED: LACTATED RINGERS 1,000 ML IV ONE (07:49)
[2018-11-05] MEDS ORDERED: SODIUM CHLORIDE 0.9% 500 ML 500 ML IV SCH (09:00)
--- NOTE | 2018-11-05 09:41 | P.PN ---
Progress Note - Text Progress Note Date: 11/05/18 This is 57 years old female, and she is scheduled to have a second diagnostic medial branch block cervical area C2-C3/C3 4 and bilateral third occipital nerve , but patient was scheduled to have occipital nerve block only , and there was a mistake in scheduling the patient, patient needs prior authorization before we can do the correct procedure, for this reason procedure was canceled ,today ,and patient will be rescheduled to have a second diagnostic medial branch block cervical area at C2-C3/C3 4 ,and third occipital nerve block under fluoroscopy guidance
== END 2018-11-05 08:59 | disposition home or self-care (01) ==
LOC: ORPAIN 06:59
PROVIDERS: ATTEND Specialist
DX: Z53.8 Procedure and treatment not carried out for other reasons (principal)

== ENCOUNTER → 2018-12-07 | Outpatient (CLI) | payer OTHER ==
--- NOTE | 2018-12-07 11:12 | FL ---
EXAMINATION TYPE: FL barium swallow DATE OF EXAM: 12/07/2018 CLINICAL HISTORY: Dysphagia with globus sensation. TECHNIQUE: A double contrast esophagram is performed utilizing air and barium. A total of 1 minute and 43 seconds of fluoroscopic time was utilized during procedure. 37 fluoroscopic images were saved. COMPARISON: None FINDINGS: The esophagus shows normal motility and emptying into the stomach. Very small hiatal hernia is seen on image 9/37 and 28/37. Mild gastroesophageal reflux was seen during real time performance of this study in the supine position with utilizing the Valsalva maneuver. IMPRESSION: 1. Mild degree gastroesophageal reflux to the level of distal third of the esophagus. 2. Small hiatal hernia. 3. No midthoracic stricture or esophageal mucosal abnormality in the area the patient's dysphagia.
== END | disposition home or self-care (01) ==
LOC: RADFLWHC 09:53
PROVIDERS: ATTEND Family Medicine
DX: K21.9 Gastro-esophageal reflux disease without esophagitis (principal); K44.9 Diaphragmatic hernia without obstruction or gangrene
CPT/HCPCS: 74220

== ENCOUNTER 2018-12-18 06:08 | Day surgery (SDC) | payer OTHER ==
[2018-12-14 14:07] VITALS: BMI 37.0
[2018-12-18] MEDS ORDERED: LACTATED RINGERS 1,000 ML IV ONE (06:35)
[2018-12-18] MEDS ORDERED: LIDOCAINE 1% 20 ML VIAL (10MG/ML) FOR IV START INTRADERMA ONE (06:35)
[2018-12-18 06:42] VITALS: TEMP 97.9
--- NOTE | 2018-12-18 07:11 | P.PCN ---
Date of Procedure: 12/18/18 Anesthesia: MAC (Conscious sedation) Description of Procedure: Procedure: Bilateral Cervical Medial Branch Block at C 2/3, 3/4 with T.O.N # 2 Indications: Neck Pain Surgeon: Ann-Marie Tyler IV sedation with: versed 2mg Anesthesia: Conscious Sedation Given for Anxiety and fear of needles The patient was seen and examined in the [facility]. Procedure risks and benefits were fully reviewed with patient. The patient understands this is a diagnostic as well as a therapeutic procedure and that the goal of the procedure is to inject medication on to the medial branch or small nerves that go into the facet joints. In this way, we can hopefully identify which of these joints, if any, may be contributing to their pain. Informed consent for the procedure was obtained. The patient was taken into the office fluoroscopy procedure room and placed Supine on the table. Vital signs were closely monitored during the procedure. The skin over the area was prepped with Betadine X 3 and draped in usual sterile manner. Sterile technique was observed throughout procedure. Under fluoroscopic guidance, the target injection areas of the C 2/3 and 3/4 medial branch nerve locations were visualized in AP, oblique and lateral views. Using biplanar fluoroscopy, a 25 gauge 1.5 inch spinal needle was inserted into proper position where the tip of the needle was located at the midpoint of the quadrangle at each level. After negative aspiration for blood and CSF, 0.5cc of 0.25 % Marcaine was injected into each of the targeted areas. The same procedure was performed on the right side. The needles were withdrawn intact. No complications were noted during the procedure. 3 cc of marcaine used total. The patient tolerated procedure well. The patient was placed in supine position and transferred to the recovery area for observation and remained stable until discharged home. Home discharge instructions given to the patient by the staff. The patient was reexamined prior to discharge. The patient will schedule a follow up in the clinic to discuss results and potential RFA.
[2018-12-18] MEDS ORDERED: IV FLUID CONTINUATION 800 ML IV ONE (07:17)
[2018-12-18 07:27] VITALS: RESP 18
[2018-12-18 07:55] VITALS: BP 130/78; PULSE 90
--- NOTE | 2018-12-18 09:05 | FL ---
EXAMINATION TYPE: FL guided pain mgmt statistic DATE OF EXAM: 12/18/2018 HISTORY: Flouroscopy time 16 seconds of fluoroscopy provided. IMPRESSION: 1. Fluoroscopy time.
--- NOTE | 2018-12-27 07:07 | CDI ---
Outpatient Documentation Clarification Form Date: 12/27/2017 CDS/Cyber Security Systems Engineer Name: Danny Negrete Phone: If any questions, call Rita Pressley [facility] at [phone] Patient Name: Melinda Faith. Admit Date: 12/18/2018 Discharge Date: 12/18/2018 ATTENTION: The [facility] Coding Staff appreciate your assistance in clarifying documentation. Please respond to the clarification below the line at the bottom and electronically sign. The [facility] Coding staff will review the response and follow-up if needed. Please note: Queries are made part of the Legal Health Record. If you have any questions, please contact the [facility]. Dear Dr. Jacobsen, As per operative report Procedure was documented as Bilateral Cervical Medial Branch block at C2/3, with T.O.N#2 was mentioned. There is Missing documentation for Third Occipital nerve block in the Description of Procedure Please clarify whether Third Occipital Nerve Block was performed. If performed please add an addendum Thank you for your kind consideration. Third occipital nerve was targeted via AP and and lateral fluroscopy at the level of the C 2/3 joint bilaterally. after negative aspiration, 0.5cc of 0.25 ropivacaine was injected on both sides of the neck. MTDD
== END 2018-12-18 07:58 | disposition home or self-care (01) ==
LOC: ORPAIN 06:08
PROVIDERS: ATTEND Hospitalist
DX: M47.812 Spondylosis without myelopathy or radiculopathy, cervical region (principal); G89.29 Other chronic pain; M54.81 Occipital neuralgia; Z79.891 Long term (current) use of opiate analgesic; Z79.890 Hormone replacement therapy; Z79.899 Other long term (current) drug therapy
CPT/HCPCS: 64490; 64491; J2250; 99152

== ENCOUNTER → 2018-12-25 | Outpatient (CLI) | payer OTHER ==
[2018-12-25 13:14] VITALS: BP 133/85; PULSE 93; RESP 16
--- NOTE | 2018-12-25 14:40 | P.PAINPG ---
Subjective Progress Note Date: 12/25/18 This is a follow-up visit for this 58 years old female with a chronic history of , severe neck pain and headache , she is very close with cervical degenerative disc disease, cervical spondylosis and occipital neuralgia, we have done diagnostic medial branch block cervical area C2 3/C34 ,and bilateral cervical occipital nerve block on 2 different occasions patient get excellent pain relief after each block, she continued to have severe neck pain and headache, its happening daily, increased with any neck movement, she denies any upper or lower extremity weakness, she denies any fever or night sweats and she denies any change in the bowel movement or urination, she continued to use pain medication [place] 10/325 every 8 hours and Motrin 800 mg every 8 hours when necessary, she denies any side effects of the medication Physical Examinations : -Constitutiona : Cooperative , not in acute distress . -HEENT : nech ; supple , no Lymphadenopathy , normal thyroid size . eyes : no ptosis , no icterus, no photophobia . - musculoskeltal : Cervical Spine motor stregnth in the deltoid and biceps, normal right side , normal Left side motor stregnth biceps and the wrist extensors normal right side ,normal left side . motor stregnth in the triceps muscle . normal Right side , normal Left side deep tendon reflexes normal at the biceps , normal at Brachioradialis , normal at triceps. positive cervical facet loading test . Severe tenderness over the occipital nerve bilaterally Lumber spine moter stegnth lower extremities , thigh and legs 5/5 Right side , 5/5 Left side Assessment and plan= Chronic neck pain and headaches secondary to , cervical spondylosis with cervical facet arthropathy, and occipital neuralgia Patient had good result after bilateral medial branch block cervical area C2 3, C3 4, and third occipital nerve ( more than 70% improvement of her neck pain and headache) chronic and current use of high-risk medication (opioids) Patient denies any side effects of the current pain medication and the current treatment/medication helping the patient to do activity of daily living , Diagnoses, prognosis, treatment options, including but not limited to physical therapy, medication management, interventional therapies, and surgery, were discussed with the patient All the questions answered The narcotic consent was signed and patient agreed and understood the side effects and complications of opioid treatment. Patient signed the narcotic agreement, and was orally counseled, not to overuse, not to abuse, not to Divert , not tp sell pain medication, and to take it as prescribed only, Patient was counseled not to drive or operate heavy equipment while using narcotic medication, and advised not to use alcohol or any Illicit drugs while using the narcotis. understanding that lack of compliance with any of the above instructions, will likely to cause discharge from, the pain service, not to renew his narcotic prescriptions MAPS Reviwed and it was apropriate . Medication managements= patient will be given prescription refills for [place] 07/6025 every 8 hours dispense 90 with 1 refill . Patient will be good candidate to have radiofrequency ablation of the C2 3/ C3 4 and third occipital nerve , we will start the right side and later on when to the left side , Objective - Vital Signs Vital signs: Vital Signs Temp Pulse 93 12/25/18 13:08 Resp 16 12/25/18 13:08 BP 133/85 12/25/18 13:08 Pulse Ox 94 L 12/25/18 13:08 Intake & Output 12/24/18 12/25/18 12/25/18 18:59 06:59 18:59 Weight 94.801 kg PQRS Measure Charge Sheet Measure #130: Documentation of Current Meds in Medical Chart: Patient's medications documented in chart Measure #226: Tobacco Use: Screen & Cessation Intervention: Pt not a tobacco user Measure #111: Pneumonia Vaccination: Pneumococcal vaccine NOT administered or previously given Measure #47: Advance Care Plan: Advance care planning discussed & documented, pt chose/unable to give Measure #412: Opioid Treatment Agreement: Documented signed opioid trtmnt agreemnt min once during opioid trtmnt Measure #408: Opioid Therapy Follow-up Evaluation: Patient had f/u eval minimum every 3 months during opioid therapy Measure #317: Preventitive Care & Scrn High Bld Press & F/U: Normal blood pressure, f/u not required Measure #128: Body Mass Index (BMI) Screening & Follow-up: BMI documented ABOVE normal parameters - f/u documented Measure #131: Pain Assessment & Follow-up: Pain positive & plan documented, Follow-up scheduled Measure #431: Unhealthy Alcohol Use Preventative Care & Scrn: Patient not identified as an unhealthy alcohol user PQRS Narrative: Smoking Status Never smoker Narcotic Agreement Date Signed 06/14/16 Blood Pressure 133/85 Pain Intensity [Bilateral Neck 6 ] Scale Used Numeric (1 - 10) Hx Alcohol Use (MH) Yes: social Home Medications: Ambulatory Orders Estradiol [Estrace] 1 mg PO HS 06/14/16 Topiramate [Topamax] 400 tab PO HS 06/14/16 Multivitamin [Multivitamins Adult Gummies] 1 each PO DAILY 12/05/16 Cholecalciferol [Vitamin D3] 5,000 unit PO DAILY 05/09/17 Magnesium Gluconate [Magonate] 500 mg PO DAILY 05/09/17 HYDROcodone/APAP 10-325MG [[place] 10-325] 1 tab PO Q8H PRN #90 tab 08/21/18 Ibuprofen [Motrin] 800 mg PO TID PRN #90 tab 08/21/18 Potassium Chloride 8 meq PO DAILY 08/21/18 Venlafaxine HCl [Effexor] 1 tab PO DAILY 12/18/18 Controlled Substance Measures - Controlled Substance Measures Is patient prescribed a controlled substance at discharge?: Yes When asked, does pt state using other controlled substances?: No If prescribed controlled substance>3 days was MAPS reviewed?: Yes If Rx opioid, was Start Talking consent form obtained?: Yes If opioid is for acute pain is fill amount 7 days or less?: No Was information provided regarding opioid addiction?: Yes
== END | disposition home or self-care (01) ==
LOC: PNWHC3 13:01
PROVIDERS: ATTEND Specialist
DX: G89.29 Other chronic pain (principal); M54.2 Cervicalgia; R51 Headache; M47.812 Spondylosis without myelopathy or radiculopathy, cervical region; M46.82 Other specified inflammatory spondylopathies, cervical region; M54.81 Occipital neuralgia; F11.90 Opioid use, unspecified, uncomplicated; Z79.1 Long term (current) use of non-steroidal anti-inflammatories (NSAID); Z71.89 Other specified counseling
CPT/HCPCS: 99211

== ENCOUNTER 2019-01-14 07:19 | Day surgery (SDC) | payer OTHER ==
[2018-12-31 08:39] VITALS: BMI 37.0
[~2019-01-14 07:19] MED LIST changes: -SODIUM CHLORIDE 0.9% 250 ML IV ONE; +SODIUM CHLORIDE 0.9% 500 ML 500 ML IV SCH
[2019-01-14 07:47] VITALS: RESP 16; TEMP 98.4
[2019-01-14] MEDS ORDERED: LACTATED RINGERS 1,000 ML IV ONE (07:52)
[2019-01-14] MEDS ORDERED: LIDOCAINE 1% 20 ML VIAL (10MG/ML) FOR IV START INTRADERMA ONE (07:52)
[2019-01-14] MEDS ORDERED: IV FLUID CONTINUATION 1,000 ML IV ONE (08:53)
[2019-01-14 09:09] VITALS: BP 120/74; PULSE 86
--- NOTE | 2019-01-14 09:48 | FL ---
Fluoroscopy HISTORY: Pain 45 seconds fluoroscopy time supplied to the referring clinician. 2 intraoperative C-arm images docum ent the procedure. See dictated report from anesthesia.
== END 2019-01-14 09:24 | disposition home or self-care (01) ==
LOC: ORPAIN 07:19
PROVIDERS: ATTEND Anesthesiology
DX: M47.812 Spondylosis without myelopathy or radiculopathy, cervical region (principal); M79.7 Fibromyalgia; Z98.1 Arthrodesis status; Z79.890 Hormone replacement therapy; Z79.899 Other long term (current) drug therapy
CPT/HCPCS: 64633; 64634; J2250; J3301; J2001; J3010; 99152; 99153

== ENCOUNTER → 2019-01-22 | Outpatient (CLI) | payer OTHER ==
[2019-01-22 14:25] VITALS: BP 127/83; PULSE 94; RESP 16
== END ==
LOC: PNWHC3 14:09
PROVIDERS: ATTEND Specialist
DX: G89.29 Other chronic pain (principal); M47.812 Spondylosis without myelopathy or radiculopathy, cervical region; M46.92 Unspecified inflammatory spondylopathy, cervical region; M54.81 Occipital neuralgia; Z79.891 Long term (current) use of opiate analgesic
CPT/HCPCS: 99211

== ENCOUNTER → 2019-01-28 | Day surgery (SDC) | payer OTHER ==
--- NOTE | 2019-01-23 08:25 | P.PN ---
Subjective Progress Note Date: 01/22/19 This is a follow-up visit for this 58 years old female with a chronic history of, severe neck pain and headache , she is Diagnosed with cervical degenerative disc disease, cervical spondylosis and occipital neuralgia, we have done radiofrequency ablation of the medial branch cervical area on the right side patient reported that her headache and neck pain improved significantly on the right side, she had more than 80% improvement, currently she is complaining of neck pain and headache on the left side and she has severe localized pain at the injection site, she denies any upper or lower extremity weakness, she denies any fever or night sweats and she denies any change in the bowel movement or urin ation, she continued to use pain medication [place] 10/325 every 8 hours and Motrin 800 mg every 8 hours when necessary, she denies any side effects of the medication Physical Examinations : -Constitutiona : Cooperative , not in acute distress . -HEENT : nech ; supple , no Lymphadenopathy , normal thyroid size . eyes : no ptosis , no icterus, no photophobia . - musculoskeltal : Cervical Spine motor stregnth in the deltoid and biceps, normal right side , normal Left side motor stregnth biceps and the wrist extensors normal right side ,normal left side . motor stregnth in the triceps muscle . normal Right side , normal Left side deep tendon reflexes normal at the biceps , normal at Brachioradialis , normal at triceps. positive cervical facet loading test . Severe tenderness over the occipital nerve bilaterally Multiple trigger point identified in the right-sided cervical paravertebral muscles and rhomboid muscles Lumber spine moter stegnth lower extremities ,thigh and legs 5/5 Right side , 5/5 Left side Assessment and plan= Chronic neck pain and headaches secondary to , cervical spondylosis with cervical facet arthropathy, and occipital neuralgia Patient had excellent relief of her neck pain and headache on the right side after the radiofrequency ablation of the medial branch, and she is having myofascial pain on the right side only Patient could benefit from radiofrequency ablation of the left-sided medial branch at C2 3/C3 4, and the third occipital nerve , and at the same time she could benefit from trigger point injection on the right side cervical paravertebral muscles chronic and current use of high-risk medication (opioids) Patient denies any side effects of the current pain medication and the current treatment/medication helping the patient to do activity of daily living , Diagnoses, prognosis, treatment options, including but not limited to physical therapy, medication management, interventional therapies, and surgery, were discussed with the patient All the questions answered The narcotic consent was signed and patient agreed and understood the side effects and complications of opioid treatment. Patient signed the narcotic agreement, and was orally counseled, not to overuse, not to abuse, not to Divert , not tp sell pain medication, and to take it as prescribed only, Patient was counseled not to drive or operate heavy equipment while using narcotic medication, and advised not to use alcohol or any Illicit drugs while using the narcotis. understanding that lack of compliance with any of the above instructions, will likely to cause discharge from, the pain service, not to renew his narcotic prescriptions MAPS Reviwed and it was apropriate . PQRS Measure Charge Sheet Measure #130: Documentation of Current Meds in Medical Chart: Patient's medications documented in chart Measure #226: Tobacco Use: Screen & Cessation Intervention: Pt not a tobacco user Measure #111: Pneumonia Vaccination: Pneumococcal vaccine NOT administered or previously given Measure #47: Advance Care Plan: Advance care planning discussed & documented, pt chose/unable to give Measure #412: Opioid Treatment Agreement: Documented signed opioid trtmnt agreemnt min once during opioid trtmnt Measure #408: Opioid Therapy Follow-up Evaluation: Patient had f/u eval minimum every 3 months during opioid therapy Measure #317: Preventitive Care & Scrn High Bld Press & F/U: Normal blood pressure, 127/83 f/u not required Measure #128: Body Mass Index (BMI) Screening & Follow-up: BMI documented ABOVE normal parameters - f/u documented Measure #131: Pain Assessment & Follow-up: Pain positive & plan documented, Follow-up scheduled Measure #431: Unhealthy Alcohol Use Preventative Care & Scrn: Patient not identified as an unhealthy alcohol user PQRS Narrative: - Controlled Substance Measures Is patient prescribed a controlled substance at discharge?: Yes When asked, does pt state using other controlled substances?: No If prescribed controlled substance>3 days was MAPS reviewed?: Yes If Rx opioid, was Start Talking consent form obtained?: Yes If opioid is for acute pain is fill amount 7 days or less?: No Was information provided regarding opioid addiction?: Yes
[2019-01-24 09:02] VITALS: BMI 35.0
[~2019-01-28] MED LIST changes: +IV FLUID CONTINUATION 1,000 ML IV ONE; +LACTATED RINGERS 1,000 ML IV ONE; +LIDOCAINE 1% 20 ML VIAL (10MG/ML) FOR IV START INTRADERMA ONE; -SODIUM CHLORIDE 0.9% 500 ML 500 ML IV SCH
[2019-01-28 09:26] VITALS: TEMP 97
[2019-01-28 10:03] VITALS: RESP 18
--- NOTE | 2019-01-28 10:06 | P.PCN ---
Date of Procedure: 01/28/19 Operative Findings: PREOPERATIVE DIAGNOSIS: Cervical spondylosis M47.812 POSTOPERATIVE DIAGNOSIS: Cervical spondylosis M47.812 PROCEDURES: Radiofrequency thermocoagulation, LEFT C2-3, C3-4 (pulsed RF of C2) ANESTHESIA: Local with 1% lidocaine; IV sedation with fentanyl and Versed. EBL: Minimal PROCEDURE INDICATION: The patient with neck pain secondary to cervical arthropathy who had more than 50% relief of her pain with previous diagnostic cervical medial branch block. PROCEDURE DESCRIPTION / TECHNIQUE: The patient was seen and identified in the preoperative area. Risks, benefits, complications, and alternatives were discussed with the patient, the patient agreed to proceed with the procedure and signed the consent. IV was started. Vital signs remained stable throughout the procedure. Patient was taken to the OR and time out was completed. The patient was placed in the prone position on the procedure table. A pillow was placed under the patient's chest to increase the cervical interlaminar space. The cervical area was prepped and draped in the usual sterile fashion. Critical pause was taken. Vital signs were closely monitored during the procedure. Conscious sedation was used during the procedure to decrease patients anxiety. Using cross-table lateral fluoroscopy, the centroid of the trapezoid of C2, C3, C4 were identified, marked, and localized with 1% lidocaine. Subsequently, a 20 -vu radiofrequency cannula with a 10-mm active tip was advanced guided by fluoroscopy to the centroid of the trapezoid of C3, C4, C5, and C6 . Needle tip position was confirmed at the centroid of the trapezoids of C2, C3, C4 with anteroposterior fluoroscopy. Each site then underwent sensory testing at 50 Hz and 0 to 1 volt and motor testing at 2 Hz and 0 to 3 volt with local stimulation, but no radicular symptoms down the arm. Thereafter C3 to was ablated using pulse radiofrequency at 60 for 120 seconds. After that 1% lidocaine was used to anesthetize the C3 and C4 levels and radiofrequency ablation was done using 80 for 90 seconds and 2 lesions were done. After thermocoagulation, Cannulas were retracted while injecting lidocaine 1% until the needle is out and checking for negative aspiration. Skin was cleansed and bandages were applied. COMPLICATIONS: No acute complications. COMMENTS: DISPOSITION / PLANS: The patient was placed in a supine position and transferred to the recovery area in a stable condition for observation and was discharged from the recovery room after meeting discharge criteria. Home discharge instructions given to the patient by the staff. The patient was reexamined prior to discharge. The patient will schedule a follow up in the clinic in 2-4 weeks.
--- NOTE | 2019-01-28 10:08 | FL ---
EXAMINATION TYPE: FL guided pain mgmt statistic DATE OF EXAM: 01/28/2019 HISTORY: Flouroscopy time 8 seconds of fluoroscopy provided. IMPRESSION: 1. Fluoroscopy time.
[2019-01-28 10:19] VITALS: BP 123/65; PULSE 81
== END | disposition home or self-care (01) ==
LOC: ORPAIN 09:11
PROVIDERS: ATTEND Hospitalist
DX: M47.812 Spondylosis without myelopathy or radiculopathy, cervical region (principal); G89.29 Other chronic pain; M54.81 Occipital neuralgia; M50.30 Other cervical disc degeneration, unspecified cervical region; Z79.891 Long term (current) use of opiate analgesic
CPT/HCPCS: 64633; 64634; J2250; J2001; J3010; 99152

== ENCOUNTER → 2019-02-19 | Outpatient (CLI) | payer OTHER ==
[2019-02-19 14:50] VITALS: BP 134/86; PULSE 114; RESP 16
--- NOTE | 2019-02-19 17:40 | P.PAINPG ---
Subjective Progress Note Date: 02/19/19 This is a follow-up visit for this 58 years old female with a chronic history of, severe neck pain and headache , she is Diagnosed with cervical degenerative disc disease, cervical spondylosis and occipital neuralgia, we have done radiofrequency ablation of the medial branch cervical area , patient reported that her headache and neck pain improved significantly , she had more than 60% improvement, she denies any upper or lower extremity weakness, she denies any fever or night sweats and she denies any change in the bowel movement or urination, she continued to use pain medication [place] 10/325 every 8 hours and Motrin 800 mg every 8 hours when necessary, she denies any side effects of the medication Physical Examinations : -Constitutiona : Cooperative , not in acute distress . -HEENT : nech ; supple , no Lymphadenopathy , normal thyroid size . eyes : no ptosis , no icterus, no photophobia . - musculoskeltal : Cervical Spine motor stregnth in the deltoid and biceps, normal right side , normal Left side motor stregnth biceps and the wrist extensors normal right side ,normal left side . motor stregnth in the triceps muscle . normal Right side , normal Left side deep tendon reflexes normal at the biceps , normal at Brachioradialis , normal at triceps. positive cervical facet loading test Lumber spine moter stegnth lower extremities ,thigh and legs 5/5 Right side , 5/5 Left side Assessment and plan= Chronic neck pain and headaches secondary to , cervical spondylosis with cervical facet arthropathy, and occipital neuralgia Patient had excellent relief of her neck pain and headache on the right side after the radiofrequency ablation of the medial branch, and she is having myofascial pain on the right side only Status post radiofrequency ablation of the medial branch at C2 3/C3 4, and the third occipital nerve. injection on the right side cervical paravertebral muscles chronic and current use of high-risk medication (opioids) Patient denies any side effects of the current pain medication and the current treatment/medication helping the patient to do activity of daily living , Diagnoses, prognosis, treatment options, including but not limited to physical therapy, medication management, interventional therapies, and surgery, were discussed with the patient All the questions answered The narcotic consent was signed and patient agreed and understood the side effects and complications of opioid treatment. Patient signed the narcotic agreement, and was orally counseled, not to overuse, not to abuse, not to Divert , not tp sell pain medication, and to take it as prescribed only, Patient was counseled not to drive or operate heavy equipment while using narcotic medication, and advised not to use alcohol or any Illicit drugs while using the narcotis. understanding that lack of compliance with any of the above instructions, will likely to cause discharge from, the pain service, not to renew his narcotic prescriptions MAPS Reviwed and it was apropriate . Objective - Vital Signs Vital signs: Vital Signs Temp Pulse 114 H 02/19/19 14:45 Resp 16 02/19/19 14:45 BP 134/86 02/19/19 14:45 Pulse Ox 99 02/19/19 14:45 Intake & Output 02/18/19 02/19/19 02/19/19 18:59 06:59 18:59 Weight 93.894 kg PQRS Measure Charge Sheet Measure #130: Documentation of Current Meds in Medical Chart: Patient's medications documented in chart Measure #226: Tobacco Use: Screen & Cessation Intervention: Pt not a tobacco user Measure #111: Pneumonia Vaccination: Pneumococcal vaccine NOT administered or previously given Measure #47: Advance Care Plan: Advance care planning discussed & documented, pt chose/unable to give Measure #412: Opioid Treatment Agreement: Documented signed opioid trtmnt agreemnt min once during opioid trtmnt Measure #408: Opioid Therapy Follow-up Evaluation: Patient had f/u eval minimum every 3 months during opioid therapy Measure #317: Preventitive Care & Scrn High Bld Press & F/U: Normal blood pressure, f/u not required Measure #128: Body Mass Index (BMI) Screening & Follow-up: BMI documented ABOVE normal parameters - f/u documented Measure #131: Pain Assessment & Follow-up: Pain positive & plan documented, Follow-up scheduled Measure #431: Unhealthy Alcohol Use Preventative Care & Scrn: Patient not identified as an unhealthy alcohol user PQRS Narrative: Smoking Status Never smoker Do You Want the Pneumonia No Vaccine AT THIS TIME? Narcotic Agreement Date Signed 06/14/16 Blood Pressure 134/86 Pain Intensity [Bilateral 6 Posterior Neck] Scale Used Numeric (1 - 10) Hx Alcohol Use (MH) Yes: social Home Medications: Ambulatory Orders Estradiol [Estrace] 1 mg PO HS 06/14/16 Topiramate [Topamax] 400 mg PO HS 06/14/16 Multivitamin [Multivitamins Adult Gummies] 1 each PO DAILY 12/05/16 Cholecalciferol [Vitamin D3] 5,000 unit PO DAILY 05/09/17 Magnesium Gluconate [Magonate] 500 mg PO DAILY 05/09/17 HYDROcodone/APAP 10-325MG [[place] 10-325] 1 tab PO Q8H PRN #90 tab 08/21/18 Ibuprofen [Motrin] 800 mg PO TID PRN #90 tab 08/21/18 Potassium Chloride 8 meq PO DAILY 08/21/18 Venlafaxine HCl [Effexor] 150 mg PO DAILY 12/18/18 Controlled Substance Measures - Controlled Substance Measures Is patient prescribed a controlled substance at discharge?: Yes When asked, does pt state using other controlled substances?: No If prescribed controlled substance>3 days was MAPS reviewed?: Yes If Rx opioid, was Start Talking consent form obtained?: Yes If opioid is for acute pain is fill amount 7 days or less?: No Was information provided regarding opioid addiction?: Yes
== END ==
LOC: PNWHC3 14:22
PROVIDERS: ATTEND Specialist
DX: G89.29 Other chronic pain (principal); M47.812 Spondylosis without myelopathy or radiculopathy, cervical region; M46.96 Unspecified inflammatory spondylopathy, lumbar region; M54.81 Occipital neuralgia; R51 Headache; Z79.899 Other long term (current) drug therapy; Z79.891 Long term (current) use of opiate analgesic; Z79.1 Long term (current) use of non-steroidal anti-inflammatories (NSAID)
CPT/HCPCS: 99211

== ENCOUNTER → 2019-04-16 | Outpatient (CLI) | payer OTHER ==
[2019-04-16 14:54] VITALS: RESP 18
--- NOTE | 2019-04-16 20:59 | P.PN ---
Subjective Progress Note Date: 04/16/19 This is a follow-up visit for this 58 years old female with a chronic history of, severe neck pain and headache , she is Diagnosed with cervical degenerative disc disease, cervical spondylosis and occipital neuralgia, we have done radiofrequency ablation of the medial branch cervical area , patient reported that her headache and neck pain improved significantly , she had more than 70% improvement of her neck pain, she denies any upper or lower extremity weakness, she denies any fever or night sweats and she denies any change in the bowel movement or urination, she continued to use pain medication [place] 10/325 every 8 hours and Motrin 800 mg every 8 hours when necessary, she denies any side effects of the medication Physical Examinations : -Constitutiona : Cooperative , not in acute distress . -HEENT : nech ; supple , no Lymphadenopathy , normal thyroid size . eyes : no ptosis , no icterus, no photophobia . - musculoskeltal : Cervical Spine motor stregnth in the deltoid and biceps, normal right side , normal Left side motor stregnth biceps and the wrist extensors normal right side ,normal left side . motor stregnth in the triceps muscle . normal Right side , normal Left side deep tendon reflexes normal at the biceps , normal at Brachioradialis , normal at triceps. positive cervical facet loading test Lumber spine moter stegnth lower extremities ,thigh and legs 5/5 Right side , 5/5 Left side Assessment and plan= Chronic neck pain and headaches secondary to , cervical spondylosis with cervical facet arthropathy, and occipital neuralgia Patient had excellent relief of her neck pain and headache on the right side after the radiofrequency ablation of the medial branch, and she is having myofascial pain on the right side only Status post radiofrequency ablation of the medial branch at C2 3/C3 4, and the third occipital nerve. chronic and current use of high-risk medication (opioids) Patient denies any side effects of the current pain medication and the current treatment/medication helping the patient to do activity of daily living , Diagnoses, prognosis, treatment options, including but not limited to physical therapy, medication management, interventional therapies, and surgery, were discussed with the patient All the questions answered The narcotic consent was signed and patient agreed and understood the side effects and complications of opioid treatment. Patient signed the narcotic agreement, and was orally counseled, not to overuse, not to abuse, not to Divert , not tp sell pain medication, and to take it as prescribed only, Patient was counseled not to drive or operate heavy equipment while using narcotic medication, and advised not to use alcohol or any Illicit drugs while using the narcotis. understanding that lack of compliance with any of the above instructions, will likely to cause discharge from, the pain service, not to renew his narcotic prescriptions MAPS Reviwed and it was apropriate . Prescriptions refilled for [place] 10/325 every 8 hours dispense 90 with 1 refill and Motrin 800 mg every 8 hours when necessary dispense 90 with 1 refill She will follow up in the pain clinic in 2 months PQRS Measure Charge Sheet Measure #130: Documentation of Current Meds in Medical Chart: Patient's medications documented in chart Measure #226: Tobacco Use: Screen & Cessation Intervention: Pt not a tobacco user Measure #111: Pneumonia Vaccination: Pneumococcal vaccine NOT administered or previously given Measure #47: Advance Care Plan: Advance care planning discussed & documented, pt chose/unable to give Measure #412: Opioid Treatment Agreement: Documented signed opioid trtmnt agreemnt min once during opioid trtmnt Measure #408: Opioid Therapy Follow-up Evaluation: Patient had f/u eval minimum every 3 months during opioid therapy Measure #317: Preventitive Care & Scrn High Bld Press & F/U: Elevated blood pressure 141/76, she will follow up with her primary care Measure #128: Body Mass Index (BMI) Screening & Follow-up: BMI documented ABOVE normal parameters - f/u documented Measure #131: Pain Assessment & Follow-up: Pain positive & plan documented, Follow-up scheduled Measure #431: Unhealthy Alcohol Use Preventative Care & Scrn: Patient not identified as an unhealthy alcohol user PQRS Narrative: - Controlled Substance Measures Is patient prescribed a controlled substance at discharge?: Yes When asked, does pt state using other controlled substances?: No If prescribed controlled substance>3 days was MAPS reviewed?: Yes If Rx opioid, was Start Talking consent form obtained?: Yes If opioid is for acute pain is fill amount 7 days or less?: No Was information provided regarding opioid addiction?: Yes Objective - Vital Signs Vital signs: Vital Signs Temp Pulse Resp 18 04/16/19 14:53 BP Pulse Ox Intake & Output 04/16/19 04/16/19 04/17/19 06:59 18:59 06:59 Weight 92.986 kg
== END ==
LOC: PNWHC3 14:27
PROVIDERS: ATTEND Specialist
DX: G89.29 Other chronic pain (principal); M50.30 Other cervical disc degeneration, unspecified cervical region; M47.812 Spondylosis without myelopathy or radiculopathy, cervical region; M46.82 Other specified inflammatory spondylopathies, cervical region; M54.81 Occipital neuralgia; Z79.891 Long term (current) use of opiate analgesic; Z79.1 Long term (current) use of non-steroidal anti-inflammatories (NSAID)
CPT/HCPCS: 99211

== ENCOUNTER → 2019-06-20 | Outpatient (CLI) | payer OTHER ==
[2019-06-20 12:19] VITALS: BP 144/85; PULSE 96; RESP 16
--- NOTE | 2019-06-20 16:14 | P.PN ---
Subjective Progress Note Date: 06/20/19 This is a follow-up visit for this 58 years old female with a chronic history of, severe neck pain and headache , she is Diagnosed with cervical degenerative disc disease, cervical spondylosis and occipital neuralgia, we have done radiofrequency ablation of the medial branch cervical area , patient reported that her headache and neck pain improved significantly , she had more than 60% improvement, and currently she is complaining of severe low back pain realistically we have done radiofrequency ablation of the medial branch lumbar area more than a year ago , and she had excellent pain relief of her low back pain after the radiofrequency ,she denies any upper or lower extremity weakness, she denies any fever or night sweats and she denies any change in the bowel movement or urination, she continued to use pain medication [place] 10/325 every 8 hours and Motrin 800 mg every 8 hours when necessary, she denies any side effects of the medication Physical Examinations : -Constitutiona : Cooperative , not in acute distress . -HEENT : nech : supple , no Lymphadenopathy , normal thyroid size . eyes : no ptosis , no icterus, no photophobia . ENT : normal of hearing , normal oropharynx , no Thrush . - Respiratory : Chest clear to auscultations Bilaterally , no wheezing , no Rhonchi . - Cardiovascula : regular rate and rhythem , S1 , S2 , no S3 , no S4. - Gastrointestina : abdomen soft no tenderness , bowel sounds , no organomegally . - Genitourinary : Defferred . - neurologic : Cranial nerve II to XII intact , no focal neurological deffecit . -psychatric : alert , oriented X 3 , appropriate affect , intact judgment and insight . -Lymphatic : no Lymphadenopathy . - musculoskeltal : Cervical Spine motor stregnth in the deltoid and biceps, normal right side , normal Left side motor stregnth biceps and the wrist extensors normal right side ,normal left side . motor stregnth in the triceps muscle . normal Right side , normal Left side Lumber spine moter stegnth lower extremities ,thigh and legs 5/5 Right side , 5/5 Left side deep tendon reflexes : normal Knee Jerk , normal ankle Jerk positive lumber facet Loading Test Range of motion of the lumbar spine Flexion 30 degrees, extension 10 degrees strait leg raising test , positive at degree Fabere test positive RT and pos itive LT .y. Assessment and plan= Chronic neck pain and headaches secondary to , cervical spondylosis with cervical facet arthropathy, and occipital neuralgia Patient had excellent relief of her neck pain and headache on the right side after the radiofrequency ablation of the medial branch, and she is having myofascial pain on the right side only Status post radiofrequency ablation of the medial branch at C2 3/C3 4, and the third occipital nerve. Low back pain secondary to lumbar spondylosis with lumbar facet arthropathy patient had excellent pain relief of her low back pain after an RFA of the medial branch lumbar area done in the past more than a year ago chronic and current use of high-risk medication (opioids) Patient denies any side effects of the current pain medication and the current treatment/medication helping the patient to do activity of daily living , Diagnoses, prognosis, treatment options, including but not limited to physical therapy, medication management, interventional therapies, and surgery, were discussed with the patient All the questions answered The narcotic consent was signed and patient agreed and understood the side e ffects and complications of opioid treatment. Patient signed the narcotic agreement, and was orally counseled, not to overuse, not to abuse, not to Divert , not tp sell pain medication, and to take it as prescribed only, Patient was counseled not to drive or operate heavy equipment while using narcotic medication, and advised not to use alcohol or any Illicit drugs while using the narcotis. understanding that lack of compliance with any of the above instructions, will likely to cause discharge from, the pain service, not to renew his narcotic prescriptions MAPS Reviwed and it was apropriate . Patient given prescription refill for [place] 10/325 every 8 hours dispense 90 with 1 refill Motrin 800 mg 3 times a day PQRS Measure Charge Sheet Measure #130: Documentation of Current Meds in Medical Chart: Patient's medications documented in chart Measure #226: Tobacco Use: Screen & Cessation Intervention: Pt not a tobacco user Measure #111: Pneumonia Vaccination: Pneumococcal vaccine NOT administered or previously given Measure #47: Advance Care Plan: Advance care planning discussed & documented, pt chose/unable to give Measure #412: Opioid Treatment Agreement: Documented signed opioid trtmnt agreemnt min once during opioid trtmnt Measure #408: Opioid Therapy Follow-up Evaluation: Patient had f/u eval minimum every 3 months during opioid therapy Measure #317: Preventitive Care & Scrn High Bld Press & F/U: Elevated blood pressure, f/u with her primary care Measure #128: Body Mass Index (BMI) Screening & Follow-up: BMI documented ABOVE normal parameters - f/u documented Measure #131: Pain Assessment & Follow-up: Pain positive & plan documented, Follow-up scheduled Measure #431: Unhealthy Alcohol Use Preventative Care & Scrn: Patient not identified as an unhealthy alcohol user PQRS Narrative: - Controlled Substance Measures Is patient prescribed a controlled substance at discharge?: Yes When asked, does pt state using other controlled substances?: No If prescribed controlled substance>3 days was MAPS reviewed?: Yes If Rx opioid, was Start Talking consent form obtained?: Yes If opioid is for acute pain is fill amount 7 days or less?: No Was information provided regarding opioid addiction?: Yes Objective - Vital Signs Vital signs: Vital Signs Temp Pulse 96 06/20/19 12:13 Resp 16 06/20/19 12:13 BP 144/85 06/20/19 12:13 Pulse Ox 96 06/20/19 12:13 Intake & Output 06/19/19 06/20/19 06/20/19 18:59 06:59 18:59 Weight 90.718 kg
== END ==
LOC: PNWHC3 11:55
PROVIDERS: ATTEND Specialist
DX: G89.29 Other chronic pain (principal); M47.812 Spondylosis without myelopathy or radiculopathy, cervical region; M46.92 Unspecified inflammatory spondylopathy, cervical region; M47.816 Spondylosis without myelopathy or radiculopathy, lumbar region; M46.96 Unspecified inflammatory spondylopathy, lumbar region; M54.81 Occipital neuralgia; R51 Headache; Z79.891 Long term (current) use of opiate analgesic; Z79.1 Long term (current) use of non-steroidal anti-inflammatories (NSAID)
CPT/HCPCS: 99211

== ENCOUNTER 2019-07-24 07:02 | Day surgery (SDC) | payer OTHER ==
[2019-07-22 15:58] VITALS: BMI 33.7
[~2019-07-24 07:02] MED LIST changes: -IV FLUID CONTINUATION 1,000 ML IV ONE; -LACTATED RINGERS 1,000 ML IV ONE; +LACTATED RINGERS 1,000 ML IV SCH; -LIDOCAINE 1% 20 ML VIAL (10MG/ML) FOR IV START INTRADERMA ONE
[2019-07-24 07:14] VITALS: TEMP 97.7
[2019-07-24] MEDS ORDERED: LIDOCAINE 1% 20 ML VIAL (10MG/ML) FOR IV START INTRADERMA ONE (07:25)
[2019-07-24] MEDS ORDERED: IV FLUID CONTINUATION 1,000 ML IV ONE ×2 (08:03)
[2019-07-24 08:22] VITALS: BP 137/77; PULSE 80; RESP 18
--- NOTE | 2019-07-24 08:40 | P.PCN ---
Date of Procedure: 07/24/19 Procedure(s) Performed: PREOPERATIVE DIAGNOSIS: Lumbar Spondylosis POSTOPERATIVE DIAGNOSIS: Same PROCEDURES: Radiofrequency ablation of the L3, L4, L5 medial branches for facets L4-5 and L5-S1 with fluoroscopic guidance on the left side SURGEON: Carmen Pace MD. ANESTHESIA: Lidocaine 1% 5 mL, Moderate sedation with intravenous Versed and fentanyl, sedation time 21 minutes EBL: Minimal Fluoroscopy was used for the procedure and images were saved in the radiology portion of the chart. PROCEDURE INDICATION: The patient with low back pain secondary to lumbar facet arthropathy who had more than 50% relief of pain with previous diagnostic lumbar medial branch block X2. PROCEDURE DESCRIPTION / TECHNIQUE: The patient was seen and identified in the preoperative area. Risks, benefits, complications, including but not limited to risk of infection ,bleeding , allergic reactions to the medications and incomplete pain relief , and alternatives were discussed with the patient, the patient agreed to proceed with the procedure and signed the consent. IV was started. The operative site was marked. Patient was taken to the OR and time out was completed. The patient was placed in the prone position on the procedure table. The lumbar area was prepped and draped in the usual sterile fashion. . Vital signs were closely monitored during the procedure .IV sedation was used during the procedure to decrease patients anxiety. Using AP and then oblique fluoroscopy, the "eye of the Dm dog" corresponding to the connection between the superior and transverse articular processes of the left L4 and L5 as well as the sacral ala were identified, marked, and localized with 1% lidocaine. Subsequently, an 18 guage 100 mm radiofrequency cannula with a 10-mm active tip was advanced guided by fluoroscopy to the identified target at each site. Needle positioning was confirmed on AP, oblique and lateral fluoroscopy. Motor testing at 2.5 Hz was done with paraspinal muscle stimulation only, and no radicular symptoms down the legs. Then 1 mL of 4% lidocaine was injected in each site. Radiofrequency thermocoagulation at 80 degrees celsius for 90 seconds was then performed. [place] were removed. Sterile dressings were applied. COMPLICATIONS: No acute complications. DISPOSITION / PLANS: The patient was placed in a supine position and transferred to the recovery area in a stable condition for observation and was discharged from the recovery room after meeting discharge criteria. Home discharge instructions given to the patient by the staff. The patient will follow up in clinic in 4 weeks.
--- NOTE | 2019-07-24 08:51 | FL ---
EXAMINATION TYPE: FL guided pain mgmt statistic DATE OF EXAM: 07/24/2019 HISTORY: Flouroscopy time 9 seconds of fluoroscopy provided. IMPRESSION: 1. Fluoroscopy time.
== END 2019-07-24 08:33 | disposition home or self-care (01) ==
LOC: ORPAIN 07:02
PROVIDERS: ATTEND Anesthesiology
DX: M47.896 Other spondylosis, lumbar region (principal); Z78.0 Asymptomatic menopausal state
CPT/HCPCS: 64635; 64636; J2250; J3010; 99152

== ENCOUNTER → 2019-08-15 | Outpatient (CLI) | payer OTHER ==
[2019-08-15 11:47] VITALS: BP 125/77; PULSE 81; RESP 16
--- NOTE | 2019-08-15 12:15 | P.PAINPG ---
Subjective Progress Note Date: 08/15/19 This is a follow-up visit for this 58 years old female with a chronic history of, severe neck pain and headache and severe low back pain, she is Diagnosed with cervical degenerative disc disease, cervical spondylosis and occipital neuralgia, and lumbar spondylolysis with facet arthropathy , recently we have done radiofrequency ablation of the medial branch left side lumbar area, and she reported that her low back pain on the left side improved significantly, and currently she is complaining of severe low back pain mainly on the right side, and she has some cramping on her right leg, and also she has some numbness and tingling in her foot ,she denies any upper or lower extremity weakness, she denies any fever or night sweats and she denies any change in the bowel movement or urination, she continued to use pain medication [place] 10/325 every 8 hours ,and Motrin 800 mg every 8 hours when necessary, she denies any side effects of the medication Objective - Vital Signs Vital signs: Vital Signs Temp Pulse 81 08/15/19 11:35 Resp 16 08/15/19 11:35 BP 125/77 08/15/19 11:35 Pulse Ox 97 08/15/19 11:35 - Exam -Constitutiona : Cooperative , not in acute distress . -HEENT : nech : supple , no Lymphadenopathy , normal thyroid size . eyes : no ptosis , no icterus, no photophobia . ENT : normal of hearing , normal oropharynx , no Thrush . - Respiratory : Chest clear to auscultations Bilaterally , no wheezing , no Rhonchi . - Cardiovascula : regular rate and rhythem , S1 , S2 , no S3 , no S4. - Gastrointestina : abdomen soft no tenderness , bowel sounds , no organomegally . - Genitourinary : Defferred . - neurologic : Cranial nerve II to XII intact , no focal neurological deffecit . -psychatric : alert , oriented X 3 , appropriate affect , intact judgment and insight . -Lymphatic : no Lymphadenopathy . - musculoskeltal : Cervical Spine motor stregnth in the deltoid and biceps, normal right side , normal Left side motor stregnth biceps and the wrist extensors normal right side ,normal left side . motor stregnth in the triceps muscle . normal Right side , normal Left side Lumber spine moter stegnth lower extremities ,thigh and legs 5/5 Right side , 5/5 Left side deep tendon reflexes : normal Knee Jerk , normal ankle Jerk lumber facet Loading Test =positive on the right side Range of motion of the lumbar spine Flexion 30 degrees, extension 10 degrees strait leg raising test , positive at degree Fabere test positive RT and positive LT Assessment and Plan Plan: Assessment and plan= Chronic neck pain and headaches secondary to , cervical spondylosis with cervical facet arthropathy, and occipital neuralgia symptoms improved after RFA of the cervical region branch Chronic low back pain secondary to lumbar spondylosis with lumbar facet arthropathy status post RFA of the left side lumbar medial branch Patient currently having in your symptoms of cramping and numbness in the right lower extremity. chronic and current use of high-risk medication (opioids) Patient denies any side effects of the current pain medication and the current treatment/medication helping the patient to do activity of daily living , Diagnoses, prognosis, treatment options, including but not limited to physical therapy, medication management, interventional therapies, and surgery, were discussed with the patient All the questions answered The narcotic consent was signed and patient agreed and understood the side effects and complications of opioid treatment. Patient signed the narcotic agreement, and was orally counseled, not to overuse, not to abuse, not to Divert , not tp sell pain medication, and to take it as prescribed only, Patient was counseled not to drive or operate heavy equipment while using narcotic medication, and advised not to use alcohol or any Illicit drugs while using the narcotis. understanding that lack of compliance with any of the above instructions, will likely to cause discharge from, the pain service, not to renew his narcotic prescriptions MAPS Reviwed and it was apropriate . Patient given prescription refill for [place] 10/325 every 8 hours dispense 90 with 1 refill and Motrin 800 mg 3 times a day when necessary. We will order MRI of the lumbar spine without contrast to evaluate if there is any utility causing her new symptoms. Patient will follow up in the pain clinic in 8 weeks for medication refill and also see her earlier if needed . Time with Patient: Less than 30 PQRS Measure Charge Sheet Measure #130: Documentation of Current Meds in Medical Chart: Patient's medications documented in chart Measure #226: Tobacco Use: Screen & Cessation Intervention: Pt not a tobacco user Measure #111: Pneumonia Vaccination: Pneumococcal vaccine NOT administered or previously given Measure #47: Advance Care Plan: Advance care planning discussed & documented, pt chose/unable to give Measure #412: Opioid Treatment Agreement: Documented signed opioid trtmnt agreemnt min once during opioid trtmnt Measure #408: Opioid Therapy Follow-up Evaluation: Patient had f/u eval minimum every 3 months during opioid therapy Measure #317: Preventitive Care & Scrn High Bld Press & F/U: Normal blood pressure, f/u not required Measure #128: Body Mass Index (BMI) Screening & Follow-up: BMI documented ABOVE normal parameters - f/u documented Measure #131: Pain Assessment & Follow-up: Pain positive & plan documented, Follow-up scheduled Measure #431: Unhealthy Alcohol Use Preventative Care & Scrn: Patient not identified as an unhealthy alcohol user PQRS Narrative: Smoking Status Never smoker Narcotic Agreement Date Signed 11/30/18 Blood Pressure 125/77 Pain Intensity [Lower Back] 9 Scale Used Numeric (1 - 10) Hx Alcohol Use (MH) Yes: social Home Medications: Ambulatory Orders Estradiol [Estrace] 1 mg PO HS 06/14/16 Multivitamin [Multivitamins Adult Gummies] 1 each PO DAILY 12/05/16 Cholecalciferol [Vitamin D3] 5,000 unit PO DAILY 05/09/17 Magnesium Gluconate [Magonate] 500 mg PO DAILY 05/09/17 Potassium Chloride 8 meq PO DAILY 08/21/18 Venlafaxine HCl [Effexor] 150 mg PO DAILY 12/18/18 Omeprazole(Dose Unknown) 1 tab PO DAILY 08/13/19 HYDROcodone/APAP 10-325MG [[place] 10-325] 1 tab PO Q8H PRN #90 tab 08/15/19 HYDROcodone/APAP 10-325MG [[place] 10-325] 1 tab PO Q8HR PRN 30 Days #90 tab 08/15/19 Ibuprofen [Motrin] 800 mg PO TID PRN #90 tab 08/15/19 Controlled Substance Measures - Controlled Substance Measures Is patient prescribed a controlled substance at discharge?: Yes When asked, does pt state using other controlled substances?: No If prescribed controlled substance>3 days was MAPS reviewed?: Yes If Rx opioid, was Start Talking consent form obtained?: Yes If opioid is for acute pain is fill amount 7 days or less?: No Was information provided regarding opioid addiction?: Yes
== END | disposition home or self-care (01) ==
LOC: PNWHC3 11:24
PROVIDERS: ATTEND Specialist
DX: G89.29 Other chronic pain (principal); M47.812 Spondylosis without myelopathy or radiculopathy, cervical region; M46.92 Unspecified inflammatory spondylopathy, cervical region; M54.81 Occipital neuralgia; Z79.890 Hormone replacement therapy; Z79.1 Long term (current) use of non-steroidal anti-inflammatories (NSAID); Z79.891 Long term (current) use of opiate analgesic; Z79.899 Other long term (current) drug therapy
CPT/HCPCS: 99211

== ENCOUNTER → 2019-09-16 | Outpatient (CLI) | payer OTHER ==
--- NOTE | 2019-09-17 06:05 | MR ---
EXAMINATION TYPE: MR lumbar spine wo con DATE OF EXAM: 09/16/2019 COMPARISON: Prior MRI lumbar spine April 18, 2016. HISTORY: Pain and numbness in legs worse on right side x 6 yrs, hx fusion surgery 1976/scoliosis per patient. Lumbar spondylosis per order. TECHNIQUE: Multiplanar, multisequence imaging of the lumbar spine is performed without IV contrast. FINDINGS: There is dextroconvex scoliosis centered in the upper lumbar spine redemonstrated. Sagittal images of the lumbar spine show vertebral body heights to remain satisfactory. Persistent slight gra de 1 anterolisthesis of L5 on S1. Multilevel disc desiccation with multilevel disc space narrowing th at has relative sparing of the L3-L4 level. Disc space narrowing is moderate with vacuum disc phenome non L4-L5 and L5-S1 levels. The conus medullaris remains normal in position and signal ending mid L1 level. The bone marrow signal intensity remains within normal limits. Mild multilevel anterior spur ring redemonstrated. Axial images show multilevel spinous process resection Axial images show the T12-L1, L1-L2, and L2-L3 levels all to otherwise remain within normal limits. Axial images at the L3-L4 level show [id number] facet degenerative changes bilaterally. Spinal canal is preserved. Bilateral neural foramina are patent. No significant change from prior. Axial images at L4-L5 level moderate to advanced facet degenerative changes and ligamenta flava hyper trophy pacing posterior lateral thecal sac and axial image 9 bilaterally with mild broad-based regional construction manager ior disc protrusion minimally effacing anterior thecal sac. There is moderate to severe left and dong re right-sided neural foraminal narrowing with likely encroachment on both exiting L4 nerves. No sign ificant change from prior. Axial images at the L5-S1 level show spondylolisthesis and advanced facet degenerative changes bilate rally. There is broad-based posterior disc protrusion minimally effacing the anterior thecal sac. The re is moderate right and mild left-sided neural foraminal narrowing. No significant change from prior . There is 1.3 cm T2 hyperintense lesion left kidney axial image 26 favoring simple thin-walled cyst sl ightly increased in size from 2016 MRI. IMPRESSION: Scoliosis and multilevel degenerative changes redemonstrated most pronounced in the lower lumbar spine as detailed above. No significant change or progression from prior MRI noted.
== END | disposition home or self-care (01) ==
LOC: RADMRIMAIN 19:14
PROVIDERS: ATTEND Specialist
DX: M47.816 Spondylosis without myelopathy or radiculopathy, lumbar region (principal); M41.86 Other forms of scoliosis, lumbar region
CPT/HCPCS: 72148

== ENCOUNTER → 2019-10-10 | Outpatient (CLI) | payer OTHER ==
[2019-10-10 12:54] VITALS: BP 121/79; PULSE 88
--- NOTE | 2019-10-14 10:09 | P.PAINPG ---
Subjective Progress Note Date: 10/10/19 This is a follow-up visit for this 58 years old female with a chronic history of severe neck pain and headache and severe low back pain, she is Diagnosed with cervical degenerative disc disease, cervical spondylosis and occipital neuralgia, and lumbar spondylolysis with facet arthropathy. Her pain has been managed with combination of interventional pain procedures and medications. Today, her primary pain is located in the low back region, rated as 8-9/10, this has been present for over 10 years. Pain is worse with activity and movements, and best with lying supine. This pain radiates to right lateral thigh and right calf, rated as 4/10, this pain has been present for approximately 2 years. she does endorse subjective right-sided leg weakness and numbness and tingling in right foot. she underwent a lumbar MRI recently and is here to discuss it as well as for medication refill. She continues to use pain medication [place] 10/325 every 8 hours ,and Motrin 800 mg every 8 hours when necessary, she denies any side effects of the medication, medications are helping her function Review of systems is negative for chest pain, shortness of breath, new onset weakness, numbness/tingling, abdominal pain, malaise, fever, chills, homicidal or suicidal ideation, or bowel or bladder incontinence.she does endorse night sweats.she also reports headaches and dizziness, and is scheduled to see her primary care physician today. She reports that she has been using a friend's Fioricet which has been helping. Objective Physical exam: Vitals: Reviewed in EMR GENERAL: Well appearing, in no acute distress PSYCH: Mood and affect is appropriate. Awake, alert, and oriented SKIN: Skin color, texture, turgor normal, no rashes or lesions HEENT: Normocephalic, atraumatic. EOM intact CV: No pedal edema RESP: Respirations are unlabored, no audible wheezing GI: Abdomen non-distended MUSCULOSKELETAL: Bilateral lower extremity strength is normal and symmetric. No atrophy or tone abnormalities are noted. Lumbar spine: Straight leg raising in the sitting position is Nayana on the right for radicular pain. tenderness to palpation over the lumbar spine and paraspinous muscles bilaterally, worse on the right. Buttocks: No pain to palpation over the PSIS, sacroiliac joint maneuvers are negative for pain. Extremities: Peripheral joint ROM is full and pain free without obvious instability or laxity in all four extremities. No edema or skin discolorations noted. NEUR: Bilateral lower extremity coordination and muscle stretch reflexes are physiologic and symmetric. Negative clonus bilaterally. No loss of sensation is noted. imaging: MRI lumbar spine done on 09/16/2019 at [facility] shows multilevel spinous process resection from T12 to L3. at L3-4 mild to moderate facet degenerative changes, bilateral patent neural foramen, spinal canal is preserved. At L4-5 moderate to advanced facet degenerative changes with broad- based posterior disc protrusion resulting in moderate to severe left and severe right sided neuroforaminal narrowing with likely encroachment on bilateral L4 nerve roots. At L5-S1 advanced facet changes bilaterally, broad-based posterior disc bulge, moderate right and mild left-sided neuroforaminal narrowing. Assessment and Plan Plan: Assessment and plan= Chronic neck pain and headaches secondary to , cervical spondylosis with cervical facet arthropathy, and occipital neuralgia symptoms improved after RFA of the cervical region branch Chronic low back pain secondary to lumbar spondylosis with lumbar facet arthropathy, lumbar radiculopathy, lumbar degenerative disc disease chronic and current use of high-risk medication (opioids) Patient denies any side effects of the current pain medication and the current treatment/medication helping the patient to do activity of daily living , Diagnoses, prognosis, treatment options, including but not limited to physical therapy, medication management, interventional therapies, and surgery, were discussed with the patient All the questions answered MAPS Reviewed and it was appropriate. UDS ordered today Patient given prescription refill for [place] 10/325 every 8 hours dispense 90 with 1 refill. Motrin 800 mg 3 times a day was not refilled today as patient recently filled a prescription we will schedule right sided transforaminal epidural steroid injections at L4-5 to address her lumbar radicular symptoms. Patient will follow up in the pain clinic for above-mentioned procedure and in 8 weeks for medication refill Objective - Vital Signs Vital signs: Vital Signs Temp Pulse 88 10/10/19 12:41 Resp BP 121/79 10/10/19 12:41 Pulse Ox 96 10/10/19 12:41 PQRS Measure Charge Sheet Measure #130: Documentation of Current Meds in Medical Chart: Patient's medications documented in chart Measure #226: Tobacco Use: Screen & Cessation Intervention: Pt not a tobacco user Measure #111: Pneumonia Vaccination: Pneumococcal vaccine NOT administered or previously given Measure #47: Advance Care Plan: Advance care planning discussed & documented, pt chose/unable to give Measure #412: Opioid Treatment Agreement: Documented signed opioid trtmnt agreemnt min once during opioid trtmnt Measure #408: Opioid Therapy Follow-up Evaluation: Patient had f/u eval minimum every 3 months during opioid therapy Measure #317: Preventitive Care & Scrn High Bld Press & F/U: Normal blood pressure, f/u not required Measure #128: Body Mass Index (BMI) Screening & Follow-up: BMI documented ABOVE normal parameters - f/u documented Measure #131: Pain Assessment & Follow-up: Pain positive & plan documented, Follow-up scheduled Measure #431: Unhealthy Alcohol Use Preventative Care & Scrn: Patient not identified as an unhealthy alcohol user PQRS Narrative: Smoking Status Never smoker Narcotic Agreement Date Signed 06/20/19 Blood Pressure 121/79 Pain Intensity [Right Leg] 4 Pain Intensity [Lower Medial 8 Back] Hx Alcohol Use (MH) Yes: social Home Medications: Ambulatory Orders Estradiol [Estrace] 1 mg PO HS 06/14/16 Multivitamin [Multivitamins Adult Gummies] 1 each PO DAILY 12/05/16 Cholecalciferol [Vitamin D3] 5,000 unit PO DAILY 05/09/17 Magnesium Gluconate [Magonate] 500 mg PO DAILY 05/09/17 Potassium Chloride 8 meq PO DAILY 08/21/18 Venlafaxine HCl [Effexor] 150 mg PO DAILY 12/18/18 Omeprazole(Dose Unknown) 1 tab PO DAILY 08/13/19 HYDROcodone/APAP 10-325MG [[place] 10-325] 1 tab PO Q8HR PRN 30 Days #90 tab 08/15/19 Ibuprofen [Motrin] 800 mg PO TID PRN #90 tab 08/15/19 Controlled Substance Measures - Controlled Substance Measures Is patient prescribed a controlled substance at discharge?: Yes When asked, does pt state using other controlled substances?: No If prescribed controlled substance>3 days was MAPS reviewed?: Yes If Rx opioid, was Start Talking consent form obtained?: Yes If opioid is for acute pain is fill amount 7 days or less?: No Was information provided regarding opioid addiction?: Yes
== END | disposition home or self-care (01) ==
LOC: PNWHC3 12:23
PROVIDERS: ATTEND Anesthesiology
DX: G89.29 Other chronic pain (principal); M50.30 Other cervical disc degeneration, unspecified cervical region; M47.812 Spondylosis without myelopathy or radiculopathy, cervical region; M51.36 Other intervertebral disc degeneration, lumbar region; M47.816 Spondylosis without myelopathy or radiculopathy, lumbar region; M46.96 Unspecified inflammatory spondylopathy, lumbar region; M54.81 Occipital neuralgia; Z79.899 Other long term (current) drug therapy
CPT/HCPCS: 80307; 99211; G0482

== ENCOUNTER → 2019-11-21 | Day surgery (SDC) | payer OTHER ==
[2019-11-19 11:11] VITALS: BMI 35.2
[~2019-11-21] MED LIST changes: +DEXAMETHASONE SOD PHOSPHATE 10 MG/ML 1 ML VIAL ONE; +IOPAMIDOL M200 10 ML VIAL ONE; +IV FLUID CONTINUATION 1,000 ML IV ONE; +MIDAZOLAM 2 MG/2 ML VIAL ONE; +fentaNYL (PF) 50 MCG/ML 2 ML AMP ONE
[2019-11-21 08:06] VITALS: RESP 16; TEMP 96.8
[2019-11-21 09:35] VITALS: BP 134/81; PULSE 84
--- NOTE | 2019-11-21 09:59 | FL ---
EXAMINATION TYPE: FL guided pain mgmt statistic DATE OF EXAM: 11/21/2019 HISTORY: Fluoroscopy time 11 seconds of fluoroscopy provided. IMPRESSION: 1. Fluoroscopy time.
--- NOTE | 2019-11-21 10:06 | P.PCN ---
Date of Procedure: 11/21/19 Procedure(s) Performed: PREOPERATIVE DIAGNOSIS: Lumbar radiculopathy POSTOPERATIVE DIAGNOSIS: Lumbar radiculopathy Attending physician: Carmen Pace M.D. PROCEDURE 1. Transforaminal epidural steroid injection under fluoroscopic guidance L4-5 level, right side 2. Lumbar epidurogram ANESTHESIA: Local with 1% lidocaine 3 ml ; IV sedation with Versed and fentanyl , sedation time 15 minutes PROCEDURE INDICATION: The patient with low back pain and radiculopathy symptoms unresponsive to conservative treatment. Fluoroscopy was used for the procedure and fluoroscopic images were saved to the radiology portion of patient's chart. PROCEDURE DESCRIPTION / TECHNIQUE: The patient was seen and identified in the preoperative area. Risks, benefits, complications, and alternatives were discussed with the patient. The patient agreed to proceed with the procedure and signed the consent. IV was started, and vital signs were stable. Patient was taken to the OR and time out was completed. The patient was placed in the prone position on procedure table and a pillow was placed under the abdomen to reduce lumbar lordosis. The lumbosacral area was prepped and draped in the usual sterile fashion. Vital signs were closely monitored during the procedure. Conscious sedation was used. Using oblique fluoroscopy, the chin of the ``Dm dog and the skin and deeper tissues just below was localized with 1% lidocaine. Subsequently, a 22- gauge 5-inch spinal needle was advanced under a tunneled view fluoroscopic guidance just underneath the chin of the ``Dm dog . Under lateral fluoroscopy, the needle was then advanced to the posterior border of the foramen. After negative aspiration of CSF and blood and with no paresthesias, 1 mL of Isovue-200 contrast dye was injected under live fluoroscopy and there was no evidence of intravascular injection. The injectate solution consisting of 10 mg of dexamethasone with 1 mL of 1% lidocaine was then delivered. The needle was withdrawn intact. At the end of the procedure, skin was cleansed, and bandages were applied. COMPLICATIONS: None COMMENTS: DISPOSITION / PLANS: The patient was placed in a supine position and transferred to the recovery area in a stable condition for observation. There was no evidence of lower extremity motor or sensory deficit after the procedure. Patient was discharged from the recovery room after meeting discharge criteria. Home discharge instructions were given to the patient by the staff. The patient will follow up for repeat procedure in 4 weeks.
== END ==
LOC: ORPAIN 07:53
PROVIDERS: ATTEND Anesthesiology
DX: M54.16 Radiculopathy, lumbar region (principal)
CPT/HCPCS: 64483; J2250; J1100; J3010; Q9966; 99152

== ENCOUNTER → 2019-11-25 | Outpatient (CLI) | payer OTHER ==
--- NOTE | 2019-11-25 22:22 | MR ---
EXAMINATION TYPE: MR brain wo/w con DATE OF EXAM: 11/25/2019 COMPARISON: Previous MRI brain spine dated 12/25/2012 HISTORY: Headaches, dizziness TECHNIQUE: Multiplanar, multisequence images of the brain and brainstem is performed without and with IV contras t, utilizing 9.5 mL intravenous Gadavist . FINDINGS: Diffusion weighted images demonstrate no evidence of a recent infarct or other diffusion ab normality. There is no extra-axial fluid collection or significant interval change in white matter s ignal abnormality, left frontal hyperintensity is again noted on inversion recovery T2-weighted seque nces corresponding to some focal encephalomalacia at the level of the orbital roof. Some volume loss also present along the middle cranial fossa, anterior aspect of the left temporal lobe is stable. The ventricular system and cisternal spaces are normal in size and appearance. The brain volume is age appropriate. Midline structures demonstrate normal morphology. The craniocervical junction appears within normal limits. Post contrast images demonstrate no abnormal enhancement. The dural venous sinuses appear pa tent. The visualized sinuses are clear and the globes are intact. IMPRESSION: No acute abnormality. Chronic stable encephalomalacia left frontal lobe and findings of t he middle cranial fossa on the left are unchanged.
== END | disposition home or self-care (01) ==
LOC: RADMRIMAIN 18:13
PROVIDERS: ATTEND Family Medicine
DX: G93.89 Other specified disorders of brain (principal)
CPT/HCPCS: 70553; A9585

== ENCOUNTER → 2019-12-10 | Outpatient (CLI) | payer OTHER ==
[2019-12-10 11:58] VITALS: BP 114/76; PULSE 83; RESP 18
--- NOTE | 2019-12-10 12:49 | P.PN ---
Subjective Progress Note Date: 12/10/19 This is a 58-year-old lady with history of excessive thoracolumbar spine surgeon to to severe scoliosis at the age of 16. The patient complains of lower back pain with radiation to the right lower extremity down to the right foot with numbness and tingling in the toes occasionally. The patient had transforaminal epidural steroid injection which gave her percent relief of pain for about 3 days after the procedure than the pain started to come back and gradually .the patient also takes Rupert 10 mg 3 times a day for her pain. She has a full-time job. Her last urine drug screen came back negative for hydrocodone and positive for EDDP.the patient denies taking any methadone and she prefers that she takes Rupert every day to help with the pain. We will repeat her drug screen today. The patient cannot lie on her right side because of her increasing pain in the hip area. Patient denies new-onset weakness, bowel/bladder incontinence, or any other signs or symptoms of cauda equina syndrome. There are no signs of acute intoxication, and no indications of medication diversion or overuse. In addition to above, 13-point review of systems is also negative for chest pain, shortness of breath, changes in vision, changes in hearing, new onset weakness, abdominal pain, diarrhea, extreme fatigue, malaise, fever, skin changes, homicidal or suicidal ideation, or bowel or bladder incontinence. Vital Signs: Reviewed in EMR Gen: AAOx3, NAD HEENT: PERRLA,hearing grossly normal Pulm: resp unlabored Heart: Regular Neck: supple, trachea midline Neuro exam of the lower extremities: Normal and symmetrical deep tendon reflexes in the lower extremities, decreased right knee extension strength to 4 out of 5 compared to the left leg. Straight leg raising test: Mildly positive on the right side Cm's test: Range of motion of the lumbar spine: Facet loading test: Tenderness in the paravertebral musculature: Positive in the lumbar area and around the right sacroiliac joint Positive tenderness around the right greater trochanter Neuro: CN II-XII grossly intact, Imaging: Reviewed in EMR/chart Assessment: Thoracolumbar postlaminectomy pain syndrome Lumbar radiculopathy Lumbar neuroforaminal stenosis Right greater trochanter bursitis Plan: 1. Explanation: Opioid and psychological risk scores were reviewed. Diagnoses, prognoses, and multiple treatment options including but not limited to physical therapy, interventional therapies, adjuvant medical therapies, narcotic medication therapies, and surgery were discussed with the patient and all questions were answered to the patient's satisfaction. 2. Opioid agreement: Signed with the patient and the patient is warned not to use opioids while driving or before driving and not to combine opioids with benzodiazepines or alcohol. 3. Counseling: The patient was counseled extensively on SMOKING CESSATION, BODY MASS INDEX, EXERCISE. Specifically, the patient was instructed regarding the importance of smoking cessation, obesity, and exercise in the context of both chronic pain and overall health. 4. Procedures: Therapeutic transforaminal epidural steroid injection at the L4 5 level on the right side and schedule for right greater trochanter steroid injection 5. Consultations: None 6. Investigations: None 7. Medications: We will repeat her urine drug screen today and then resume her Rupert 10 mg up to 3 times a day if needed for her pain 8. Disposition: Return to clinic in 4 weeks for reevaluation 9. Maps were reviewed and were appropriate. Controlled Substance Measures Is patient prescribed a controlled substance at discharge?: Yes When asked, does pt state using other controlled substances?: No If prescribed controlled substance>3 days was MAPS reviewed?: Yes If Rx opioid, was Start Talking consent form obtained?: Yes If opioid is for acute pain is fill amount 7 days or less?: No Was information provided regarding opioid addiction?: Yes Objective - Vital Signs Vital signs: Vital Signs Temp Pulse 83 12/10/19 11:50 Resp 18 12/10/19 11:50 BP 114/76 12/10/19 11:50 Pulse Ox 97 12/10/19 11:50
== END | disposition home or self-care (01) ==
LOC: PNWHC3 11:36
PROVIDERS: ATTEND Anesthesiology
DX: G89.29 Other chronic pain (principal); M48.061 Spinal stenosis, lumbar region without neurogenic claudication; M54.16 Radiculopathy, lumbar region; M96.1 Postlaminectomy syndrome, not elsewhere classified; M70.61 Trochanteric bursitis, right hip; Z51.81 Encounter for therapeutic drug level monitoring; Z79.891 Long term (current) use of opiate analgesic
CPT/HCPCS: 80307; 99211; G0482

== ENCOUNTER → 2019-12-25 | Day surgery (SDC) | payer OTHER ==
[2019-12-23 15:51] VITALS: BMI 35.9
[~2019-12-25] MED LIST changes: -DEXAMETHASONE SOD PHOSPHATE 10 MG/ML 1 ML VIAL ONE; -IV FLUID CONTINUATION 1,000 ML IV ONE; +LACTATED RINGERS 1,000 ML IV ONE; +LIDOCAINE 1% (10MG/ML) FOR IV START INTRADERMA ONE; +ROPIVACAINE 5MG/ML 20ML VIAL ONE; +methylPREDNISolone ACETATE 40 MG/ML 1 ML VIAL ONE
[2019-12-25 06:46] VITALS: TEMP 97.8
--- NOTE | 2019-12-25 07:01 | P.GSHP ---
History of Present Illness H&P Date: 12/25/19 This is 59 years old female with a chronic history of severe low back pain, with radiation to the lower extremity, she is diagnosed with Failed Back surgery syndrome and lumbar area, lumbar radiculopathy, and the right trochanteric bursitis , she is here today to have transforaminal epidural steroid injection Right L4-5 , and the right trochanteric bursa steroid injection Past Medical History Past Medical History: Fibromyalgia Additional Past Medical History / Comment(s): NECK, BACK PAIN, HX MIGRAINES. History of Any Multi-Drug Resistant Organisms: None Reported Past Surgical History: Back Surgery, Section, Cholecystectomy Additional Past Surgical History / Comment(s): Back surgery at age 16 for scoliosis(fusion), PAIN CLINIC PROCEDURES, COLONOSCOPY Past Anesthesia/Blood Transfusion Reactions: Motion Sickness Smoking Status: Never smoker - Past Family History Father Family Medical History: Cancer Mother History Unknown: Yes Family Medical History: Hypertension Medications and Allergies Home Medications Medication Instructions Recorded Confirmed Type Estradiol [Estrace] 1 mg PO HS 06/14/16 12/23/19 History Multivitamin [Multivitamins Adult 1 each PO DAILY 12/05/16 12/23/19 History Gummies] Cholecalciferol [Vitamin D3] 5,000 unit PO DAILY 05/09/17 12/23/19 History Magnesium Gluconate [Magonate] 500 mg PO DAILY 05/09/17 12/23/19 History Potassium Chloride 8 meq PO DAILY 08/21/18 12/23/19 History Venlafaxine HCl [Effexor] 150 mg PO HS 12/18/18 12/23/19 History Omeprazole [PriLOSEC] 20 mg PO DAILY 08/13/19 12/23/19 History HYDROcodone/APAP 10-325MG [[place] 1 tab PO Q8HR PRN 30 Days #90 tab 08/15/19 12/23/19 Rx 10-325] Ibuprofen [Motrin] 800 mg PO TID PRN #90 tab 08/15/19 12/23/19 Rx Topiramate [Topamax] 25 mg PO HS 12/10/19 12/23/19 History SUMAtriptan SUCCINATE [Imitrex] 50 mg PO ONCE PRN 12/23/19 12/23/19 History Allergies Allergy/AdvReac Type Severity Reaction Status Date / Time No Known Allergies Allergy Verified 12/23/19 15:48 Surgical - Exam Vital Signs Temp Pulse Resp BP Pulse Ox 97.8 F 89 18 140/68 97 12/25/19 06:44 12/25/19 06:44 12/25/19 06:44 12/25/19 06:44 12/25/19 06:44 Physical Examinations : -Constitutiona : Cooperative , not in acute distress . -HEENT : nech : supple , no Lymphadenopathy , normal thyroid size . : eyes : no ptosis , no icterus, no photophobia . : ENT : normal of hearing , normal oropharynx , no Thrush . - Respiratory : Chest clear to auscultations Bilaterally , no wheezing , no Rhonchi . - Cardiovascula : regular rate and rhythem , S1 , S2 , no S3 , no S4. - Gastrointestina : abdomen soft no tenderness , bowel sounds , no organomegally . - Genitourinary : Defferred . - neurologic : Cranial nerve II to XII intact , no focal neurological deffecit . -psychatric : alert , oriented X 3 , appropriate affect , intact judgment and insight . -Lymphatic : no Lymphadenopathy . - musculoskeltal : Lumber spine moter stegnth lower extremities ,thigh and legs 5/5 Right side , 5/5 Left side deep tendon reflexes : normal Knee Jerk , normal ankle Jerk lumber facet Loading Test =positive Right , positive Left Range of motion of the lumbar spine Flexion 30 degrees, extension 10 degrees strait leg raising test = positive at 30 degree Fabere test= positive Right , and positive LT . tenderness over the Sacroiliac joint on the Right , and Left sides Severe tenderness over the right trochanteric bursa Assessment and Plan Plan: Assessment and plan=1-lumbar radiculopathy. 2-right trochanteric bursitis. 3-Failed back surgery syndrome lumbar area Patient here today to have right-sided transforaminal epidural steroid injection at L4 5, and right trochanteric bursa steroid injection Under fluoroscopy guidance Time with Patient: Less than 30
--- NOTE | 2019-12-25 08:04 | P.PCN ---
Date of Procedure: 12/25/19 Procedure(s) Performed: PREOPERATIVE DIAGNOSIS: Lumbar radiculopathy. Right trochanteric bursitis. Failed back surgery syndrome lumbar area. POSTOPERATIVE DIAGNOSIS: Same as preop diagnosis. PROCEDURE 1. Transforaminal epidural steroid injection under fluoroscopic guidance at right L4-5 level. (Fluoroscopy images stored on file in the radiology Department ) 2. Lumbar epidurogram. 3. Right trochanteric bursa steroid injection under fluoroscopy guidance. ANESTHESIA: Local with 1% lidocaine 3 ml , moderate sedation with intravenous Versed 2 mg and fentanyle 100 micrograms EBL: Minimal PROCEDURE INDICATION: The patient with low back pain and radiculopathy symptoms unresponsive to conservative treatment. PROCEDURE DESCRIPTION / TECHNIQUE: The patient was seen and identified in the preoperative area. Risks, benefits, complications, and alternatives were discussed with the patient. The patient agreed to proceed with the procedure and signed the consent. IV was started, and vital signs were stable. Patient was taken to the OR and time out was completed. The patient was placed in the prone position on procedure table and a pillow was placed under the abdomen to reduce lumbar lordosis. The lumbosacral area was prepped and draped in the usual sterile fashion. Critical pause was taken. Vital signs were closely monitored during the procedure. Conscious sedation was used during the procedure to decrease patient s anxiety. Using oblique fluoroscopy, the chin of the `ColtenDm dog at right L4-5 level was identified, and the skin and deeper tissues just below was localized with 1% lidocaine. Subsequently, a 22-gauge 5-inch spinal needle was advanced under a tunneled view fluoroscopic guidance just underneath the chin of the `Andrésy dog at the right L4 5. Under lateral fluoroscopy, the needle was then advanced to the posterior border of the right L4 5 interforaminal space. After negative aspiration of CSF and blood and with no paresthesias, 1 mL Isovue 200 contrast dye was injected excellent epidurogram and outlining of the nerve root Subsequently, 3 mL of block solution containing 40 mg Depo-medrol and 2 mL of Lidocaine 1% was injected.. Then after that the right hip area prepped with chlorhexidine 3 then under sterile technique 22 gauge Quincke Needle 5 inches long advanced slowly under fluoroscopy and placed in the right trochanteric bursa area, needle placement confirmed under fluoroscopy then after negative aspiration ropivacaine 0.5% 5 ML and 40 mg of Depo-Medrol injected in the right trochanteric bursa after negative aspiration, patient tolerated the procedure well without any conditions needle removed and the skin was cleaned COMPLICATIONS:none DISPOSITION / PLANS: The patient was placed in a supine position and transferred to the recovery area in a stable condition for observation. There was no evidence of lower extremity motor or sensory deficit after the procedure. Patient was discharged from the recovery room after meeting discharge criteria. Home discharge instructions were given to the patient by the staff. The patient was reexamined prior to discharge.
--- NOTE | 2019-12-25 08:11 | FL ---
Fluoroscopy HISTORY: Pain 6 seconds fluoroscopy time supplied to the referring clinician. 2 intraoperative C-arm images docume nt the procedure. See dictated report from anesthesia.
[2019-12-25 08:34] VITALS: BP 111/65; PULSE 77; RESP 18
== END ==
LOC: ORPAIN 06:13
PROVIDERS: ATTEND Specialist
DX: G89.29 Other chronic pain (principal); M54.16 Radiculopathy, lumbar region; M70.61 Trochanteric bursitis, right hip; M96.1 Postlaminectomy syndrome, not elsewhere classified; M79.7 Fibromyalgia; Z78.0 Asymptomatic menopausal state; Z86.69 Personal history of other diseases of the nervous system and sense organs; Z98.890 Other specified postprocedural states; Z90.49 Acquired absence of other specified parts of digestive tract; Z87.39 Personal history of other diseases of the musculoskeletal system and connective tissue; Z98.1 Arthrodesis status; Z87.898 Personal history of other specified conditions; Z79.890 Hormone replacement therapy; Z79.899 Other long term (current) drug therapy; Z79.891 Long term (current) use of opiate analgesic; Z79.1 Long term (current) use of non-steroidal anti-inflammatories (NSAID); Z80.9 Family history of malignant neoplasm, unspecified; Z82.49 Family history of ischemic heart disease and other diseases of the circulatory system; Y93.9 Activity, unspecified
CPT/HCPCS: 77002; 64483; 20610; J2250; J1030; J3010; Q9966; J2795; 99152

== ENCOUNTER → 2020-01-13 | Outpatient (CLI) | payer OTHER | END | disposition home or self-care (01) | CPT/HCPCS: 77066 ==

== ENCOUNTER → 2020-01-21 | Day surgery (SDC) | payer OTHER ==
[2020-01-21 11:16] VITALS: RESP 16
--- NOTE | 2020-01-21 12:26 | USB ---
EXAMINATION TYPE: US biopsy breast VAD LT, MG diagnostic mammo LT wo CAD DATE OF EXAM: 01/21/2020 CLINICAL HISTORY: R92.8 abn mammo. Abnormal ultrasound. TECHNIQUE: Ultrasound guided core biopsy of left breast with clip placement and follow-up diagnostic 2 view left breast mammogram. COMPARISON: Prior mammogram and ultrasound January 13, 2020. FINDINGS: The procedure of ultrasound guided core biopsy was explained to the patient. Benefits, alt ernatives, and risks were discussed. An informed consent was then obtained. The patient was placed in supine positioning for imaging and for the procedure. Preprocedure ultraso und redemonstrates a irregular heterogeneous hypoechoic partially shadowing roughly 1.5 cm lesion 9:0 0 position near nipple. The overlying skin was prepped and draped in usual sterile fashion. Lidocaine was used as anesthetic into the skin and subcutaneous tissue . Lidocaine with epinephrine is used as anesthetic into the deeper tissue up to area of concern in the left breast. Under ultrasound erik nce, a 12-gauge vacuum assisted biopsy gun device was used to obtain 5 core samples, last one was fra gmented. Following this, a biopsy clip was left in lesion. The patient tolerated the procedure well without any immediate complication. The patient was kept in the radiology department for short stay after the procedure and then discharged home in stable condi tion. Post procedure mammogram shows successful deployment of clip corresponding to largest bulk of suspici ous calcifications medial to the right nipple with less well-visualized focal mammogram lesion after lidocaine injection at this level. On lateral image this is along the posterior superior aspect of th e group of calcifications extending towards the nipple. Focal lesion left well-seen but is present po sterior superior aspect of the group of calcifications. IMPRESSION: Successful, uncomplicated ultrasound guided core biopsy of area of concern in the left br east, full pathology results to follow. High index of suspicion noted at time of procedure.
[2020-01-21 12:30] VITALS: BP 117/73; PULSE 87; TEMP 98.1
== END ==
LOC: RADUSWWP 10:58
PROVIDERS: ATTEND Surgery
DX: C50.912 Malignant neoplasm of unspecified site of left female breast (principal); Z17.0 Estrogen receptor positive status [ER+]
CPT/HCPCS: 88305; 88342; 88341; 77065; 19083; A4648; J2001

== ENCOUNTER → 2020-02-19 | Outpatient (CLI) | payer OTHER ==
--- NOTE | 2020-02-21 09:55 | BMR ---
EXAMINATION TYPE: MR breast BILAT wo/w con DATE OF EXAM: 02/19/2020 COMPARISON: Diagnostic left breast mammogram dated 01/21/2020 as well as left breast ultrasound guided biopsy of that date. Diagnostic bilateral mammogram dated 01/13/2020 and left breast ultrasound. 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 TECHNIQUE: A series of fat and water weighted images in the long and short axis views of both breasts are obtained in conjunction with dynamic contrast MRI with subtraction technique. The patient was i njected with 9.5 mL intravenous Gadavist gadolinium contrast. Three-dimensional and additional post processing imaging is created on independent workstation and reviewed during official interpretation of this study. FINDINGS: The breasts are composed of heterogenous fibroglandular tissue with moderate background par enchymal enhancement that is symmetric. There is abnormal mass and nonmass enhancement of the left breast with mass enhancement at the site o f susceptibility artifact in the biopsy marker at the 9:00 position (1.5 cm mass on ultrasound) at an terior depth and nonmass enhancement extending anterior medially to the nipple. In total the abnormal enhancement measures 3.8 x 3.3 x 1.8 cm in transverse by anterior posterior by craniocaudal dimensio n marked on subtraction images 302 and 296 as well as sagittal postcontrast T1-weighted image of the left breast image 34. The biopsy-proven mass enhancement surrounding the susceptibility artifact from the biopsy marker measures approximately 2.0 x 1.6 cm. Evaluation of kinetics reveals type III washout kinetics throughout both the nonmass and mass enhance ment. There is also mild but asymmetric skin thickening. No suspicious mass or nodule mass enhancement in the right breast. No suspicious axillary, internal m ammary, nor intramammary adenopathy bilaterally. IMPRESSION: BI-RADS [id number] breast cancer. 1. The biopsy-proven left breast cancer at the 9:00 position at anterior depth measures a total of 2. 0 x 1.6 cm, however there is suspicious contiguous nonmass enhancement extending anterior laterally t o the nipple (total measurement together of 3.8 x 3.3 x 1.8 cm). This nonmass enhancement is at the l ocation of the suspicious calcifications on mammography. Stereotactic guided biopsy could sample thes e calcifications to determine extent of disease. MRI guided biopsy may be difficult at such an anteri or depth adjacent to the nipple. 2. Skin thickening of the left periareolar region contiguous with the nonmass enhancement. Abnormal e nhancement doesn't involve the skin surface and skin involvement is questioned. 3. No MR evidence of malignancy within the right breast. No suspicious adenopathy bilaterally.
== END | disposition home or self-care (01) ==
LOC: RADMRIMAIN 08:16
PROVIDERS: ATTEND Surgery
DX: R92.1 Mammographic calcification found on diagnostic imaging of breast (principal); C50.912 Malignant neoplasm of unspecified site of left female breast
CPT/HCPCS: 77049; C8937; A9585

== ENCOUNTER → 2020-04-01 | Outpatient (CLI) | payer OTHER ==
--- NOTE | 2020-04-01 12:27 | P.PAINPG ---
Subjective Progress Note Date: 04/01/20 Melinda is a 59 y/o female was seen via telemedicine visit today. she has a history of back pain, neck pain. Her pain is mostly in the right leg, mostly at night. She describes vas 8/10 at night, sharp shooting pain, tingling. Back pain is tolerable. She has also been diagnosed with breast CA and waiting to have surgery. the TFESI performed helped significiantly for a couple months. Objective - Exam GENERAL: Awake, alert, oriented, no distress HENT: atraumatic, normocephalic, trachea midline, nose midline RESP: NO audible wheezing, no coughing CARDIO: Reg rate (per patient palpation), no edema ABDOMEN: Non tender (per patient), no distension CERVICAL SPINE: Range of motion preserved, Spurling Negative LUMBAR SPINE: Limited range of motion secondary to pain, pain with flexion and extension of the Lumbar spine. SLR postiive on right. NEURO: Gait is Normal, Sensation in Lower ext normal (per patient) PSYCH: Cooperative, normal affect. Assessment and Plan Assessment: lumbar radiculopathy neural foraminal stenosis breast CA Obesity opioid dependence. Plan: At this time, we will hold of on procedures since she needs to have breast surgery, we will trial gabapentin 300mg QHS along with other medications. Follow up in 4 weeks for med refill. PQRS Measure Charge Sheet Measure #130: Documentation of Current Meds in Medical Chart: Patient's medications documented in chart Measure #226: Tobacco Use: Screen & Cessation Intervention: Pt screened for tobacco use AND intervention given Measure #111: Pneumonia Vaccination: Pneumococcal vaccine administered or previously received Measure #47: Advance Care Plan: Advance care planning discussed & documented, plan or surrogate given Measure #412: Opioid Treatment Agreement: Documented signed opioid trtmnt agreemnt min once during opioid trtmnt Measure #408: Opioid Therapy Follow-up Evaluation: Patient had f/u eval minimum every 3 months during opioid therapy Measure #317: Preventitive Care & Scrn High Bld Press & F/U: Blood pressure not documented, patient not eligible Measure #128: Body Mass Index (BMI) Screening & Follow-up: BMI documented within normal parameters Measure #131: Pain Assessment & Follow-up: Pain positive & plan documented Measure #431: Unhealthy Alcohol Use Preventative Care & Scrn: Patient not id entified as an unhealthy alcohol user PQRS Narrative: Smoking Status Never smoker Narcotic Agreement Date Signed 06/20/19 Pain Intensity [Lower Back] 5 Scale Used Numeric (1 - 10) Hx Alcohol Use (MH) Yes: social Home Medications: Ambulatory Orders Venlafaxine HCl [Effexor] 150 mg PO HS 12/18/18 Omeprazole [PriLOSEC] 20 mg PO DAILY 08/13/19 Topiramate [Topamax] 25 mg PO HS 12/10/19 SUMAtriptan SUCCINATE [Imitrex] 50 mg PO ONCE PRN 12/23/19 HYDROcodone/APAP 10-325MG [[place] 10-325] 1 tab PO Q8HR PRN 30 Days #90 tab 04/01 Ibuprofen [Motrin] 800 mg PO TID PRN #90 tab 04/01/20 Controlled Substance Measures - Controlled Substance Measures Is patient prescribed a controlled substance at discharge?: Yes When asked, does pt state using other controlled substances?: No If prescribed controlled substance>3 days was MAPS reviewed?: Yes If Rx opioid, was Start Talking consent form obtained?: Yes If opioid is for acute pain is fill amount 7 days or less?: No Was information provided regarding opioid addiction?: Yes
== END | disposition home or self-care (01) ==
LOC: PNWHC3 07:03
PROVIDERS: ATTEND Hospitalist
DX: Z53.9 Procedure and treatment not carried out, unspecified reason (principal)

== ENCOUNTER 2020-04-10 08:09 | Day surgery (SDC) | payer OTHER ==
[2020-04-08 15:35] VITALS: BMI 38.2
[~2020-04-10 08:09] MED LIST changes: +ACETAMINOPHEN TAB 500 MG TAB PO ONE; +DEXAMETHASONE SOD PHOSPHATE 10 MG/ML 1 ML VIAL IV ONE; +HEPARIN SODIUM,PORCINE 5,000 UNIT/ML 1 ML VIAL SQ ONE; -IOPAMIDOL M200 10 ML VIAL ONE; -LACTATED RINGERS 1,000 ML IV ONE; -LIDOCAINE 1% (10MG/ML) FOR IV START INTRADERMA ONE; +LIDOCAINE 1% (10MG/ML) FOR IV START INTRADERMA PRN; +MIDAZOLAM 2 MG/2 ML VIAL IV PRN; -MIDAZOLAM 2 MG/2 ML VIAL ONE; +ONDANSETRON 4 MG/2 ML VIAL IVP ONE; +Pre Op ABX Message 1 EACH MISC MISCELLANE ONE; -ROPIVACAINE 5MG/ML 20ML VIAL ONE; -fentaNYL (PF) 50 MCG/ML 2 ML AMP ONE; -methylPREDNISolone ACETATE 40 MG/ML 1 ML VIAL ONE
--- NOTE | 2020-04-10 10:53 | P.NAPBC ---
NAPBC Queries - NAPBC Queries Was patient's case review presented at [facility] tumor board? If no, comment.: Yes Was patient's pathology reviewed at [facility]? If no, comment.: Yes Was breast conservation surgery offered? If no, comment.: Yes Was sentinel node biopsy offered? If no, comment.: Yes Was diagnosis confirmed by percutaneous core biopsy? If no, comment.: Yes Is patient mastectomy patient?: No Was a preop referral to reconstructive surgeon offered?: Yes Clinical Stage: 3b
[2020-04-10] MEDS ORDERED: ALPRAZolam 0.5 MG TAB PO ONE (10:54)
[2020-04-10] MEDS ORDERED: SCOPOLAMINE 1.5MG/72HR PATCH TRANSDERM ONE (10:59)
[2020-04-10] MEDS ORDERED: LIDOCAINE 1% INJ 10MG/ML (20 ML MDV) SQ ONE (11:38)
[2020-04-10] MEDS ORDERED: SUCCINYLCHOLINE CHLORIDE 100 MG/5 ML SYR IV ONE (14:10)
[2020-04-10] MEDS ORDERED: LIDOCAINE 1% INJ 10MG/ML (20 ML MDV) ONE (14:10)
[2020-04-10] MEDS ORDERED: MIDAZOLAM 2 MG/2 ML VIAL ONE (14:10)
[2020-04-10] MEDS ORDERED: fentaNYL (PF) 50 MCG/ML 2 ML AMP ONE (14:10)
[2020-04-10] MEDS ORDERED: PROPOFOL 10 MG/ML 20 ML VIAL IV ONE (14:10)
[2020-04-10] MEDS ORDERED: BUPIVACAIN-EPI 0.25%-1:200,000 30 ML VIAL SQ ONE (14:27)
[2020-04-10] MEDS ORDERED: SODIUM CHLORIDE 0.9% 100 ML with ceFAZolin 2,000 MG IV ONE ×2 (14:35)
[2020-04-10] MEDS ORDERED: ceFAZolin 1,000 MG VIAL IVPB ONE (14:35)
[2020-04-10] MEDS ORDERED: LACTATED RINGERS 1,000 ML IV ONE ×2 (15:00)
[2020-04-10] MEDS ORDERED: ONDANSETRON 4 MG/2 ML VIAL IVP PRN (16:37)
[2020-04-10] MEDS ORDERED: NALOXONE 0.4 MG/ML 1 ML VIAL IV PRN (16:37)
--- NOTE | 2020-04-10 16:46 | P.OP ---
Date of Procedure: 04/10/20 Procedure(s) Performed: REOPERATIVE DIAGNOSIS: Left breast cancer POSTOPERATIVE DIAGNOSIS: Same PROCEDURE: Left breast wire localization central lumpectomy, sentinel lymph node biopsy, axillary node dissection SURGEON: Carmen EBL: Minimal ANESTHESIA: General COMPLICATIONS: None OPERATIVE PROCEDURE: Patient was placed on the operating room table in the supine position. 2 mL of methylene blue was injected into the subareolar space. The breast was then massaged for 5 minutes. The breast was prepped and draped in usual sterile fashion. The left axilla was addressed at that time. The hot spot in the right axilla was identified. A small curvilinear incision was made using the scalpel. Dissection down through the subcutaneous tissues took place using electrocautery. Using the neoprobe I identified a total of 4 sentinel lymph nodes. 2 of these were blue in color. These were all removed and sent to pathology for close examination. One of the nose in particular appeared malignant grossly. Frozen section did confirm macro metastasis. Decision was made at that time to proceed with axillary node dissection. There were some additional somewhat indurated lymph nodes palpated that I was concerned may later come back positive. The axillary contents were swept inferiorly from the axillary vein down. Interestingly 1-2 additional blue nodes were identified in doing so. The long thoracic and thoracodorsal nerves were identified and preserved. Larger vessels were ligated using 3-0 silk ties or ligaclips. The axillary contents were sent to pathology for permanent sectioning at that time. The breast itself was then addressed. There were 2 wires entering the breast from superior to inferior 1 retroareolar and lateral the other at 9:00 retroareolar. A central lumpectomy took place utilizing an elliptical horizontally fashioned incision encompassing the areola and nipple. As we di ssected through the subcutaneous tissue superiorly the wires were brought into the operative field. Adequate lumpectomy then took place. The specimen was then painted the appropriate 6 colors. Clips were used to identify the lumpectomy cavity. The clip was confirmed to be within the lumpectomy specimen by radiology. The subcutaneous tissues were closed using 3-0 Vicryl sutures. The skin was closed using a running 4-0 Monocryl stitch. Skin glue and sterile dressings were then applied. DISPOSITION: Stable to recovery room
[2020-04-10] MEDS: HYDROmorphone 0.5 MG/0.5 ML SYRINGE IVP PRN ×2 (16:50→17:03)
[2020-04-10] MEDS: fentaNYL (PF) 50 MCG/ML 2 ML AMP IV PRN ×2 (17:11→17:18)
--- NOTE | 2020-04-10 18:31 | NM ---
EXAMINATION TYPE: NM sentinel node injection DATE OF EXAM: 04/10/2020 COMPARISON: NONE HISTORY: 59-year-old female with biopsy-proven left breast cancer. TECHNIQUE AND FINDINGS: The procedure of sentinel lymph node injection was explained to the patient. The benefits, alternatives, and risks were discussed. An informed consent was then obtained. Overlying skin is cleaned with sterile alcohol. 497 uCi Tc 99m Tilmanocept was injected surrounding the outer aspect of the left nipple intradermally . The patient tolerated the procedure well without any immediate complication. The patient was kept in the radiology department for short stay after the procedure and then taken to surgery for surgical p rocedure what is presumed intraoperative gamma probe will be used for sentinel lymph node detection. IMPRESSION: Left breast radiotracer injection for sentinel node localization as above.
[2020-04-10] MEDS ORDERED: HYDROmorphone 1 MG/ML 1 ML SYRINGE IVP PRN (18:34)
--- NOTE | 2020-04-10 18:37 | MM ---
EXAMINATION TYPE: MG pre op needle loc LT, MG surgical specimen LT DATE OF EXAM: 04/10/2020 COMPARISON: 01/13/2020 and MRI 02/19/2020 CLINICAL HISTORY: 59-year-old female with biopsy-proven left breast cancer referred for bracketing and excision. TECHNIQUE: Needle localization with wire placement x2 and surgical excision of area of concern in the left breast. FINDINGS: The procedure of needle localization with wire placement and than surgical excision was explained to the patient. Benefits, alternatives, and risks were discussed. An informed consent was then obtained. A CC from above approach was utilized given the request for bracketing. Abnormal calcifications extending from the nipple in a segmental distribution out to the 9:00 position are identified and medial and lateral boundaries are targeted for bracketing. Coil clip is present at the medial boundary. The overlying skin was prepped and draped in usual sterile fashion. Lidocaine was used as anesthetic into the skin and subcutaneous tissue up to the level of area of concern. Two 9 cm Kopan's needles were used, placed under a CC from above approach under mammographic guidance. Subsequent 90 degrees mammogram show the needle to be in satisfactory position relative to the targeted area. At this point, wire was placed and the needle was withdrawn. The wire was fixed to patient's skin. Images were marked for surgeon. The patient tolerated the procedure well without any immediate complication. The patient was kept in the radiology department for short stay after the procedure and then taken to surgery for surgical excision. Targeted calcifications, coil clip, and both wires are identified in specimen mammogram. The nipple is included in the specimen. The patient was kept in hospital for short stay after the procedure and then discharged home in stable condition. IMPRESSION: Successful, uncomplicated needle localization with wire bracketing and surgical excision of biopsy-proven cancer including segmental microcalcifications subareolar and 9:00 left breast, full pathology results to follow. Pathology Results: Malignant A. SENTINEL LYMPH NODES 1-3, BIOPSY: One of three lymph nodes positive for metastasis. Size of metastatic deposit measures 9 mm in greatest dimension. CK7 and ALISON immunoperoxidase stains confirm two of three sampled lymph nodes are negative (controls appropriate). B. FOURTH SENTINEL NODE, BIOPSY: Lymph node positive for metastasis. Metastatic deposit measures 7 mm in greatest dimension. CK7 and ALISON immunoperoxidase stains are confirmatory (controls appropriate). C. LEFT BREAST, LUMPECTOMY: Invasive ductal carcinoma (Grade 2) with focal mucinous differentiation and Grade 2 DCIS, margins negative. See Surgical Pathology Cancer Case Summary. D. LEFT AXILLARY CONTENT: Eight total lymph nodes negative for metastasis. Abundant tattoo pigment. Recommendation Surgical consult of the left breast. MTDD
[2020-04-10] MEDS: D5-0.45% NACL WITH KCL 20MEQ/L 1,000 ML IV SCH ×2 (20:59→21:00)
[2020-04-10] MEDS: DOCUSATE 100 MG CAP PO SCH (21:00)
[2020-04-10] MEDS: HYDROcodone/APAP 5-325MG 1 EACH TAB PO PRN (23:37)
[2020-04-11] MEDS: HEPARIN SODIUM,PORCINE 5,000 UNIT/ML 1 ML VIAL SQ SCH ×2 (00:03→09:57)
[2020-04-11] MEDS: HYDROcodone/APAP 5-325MG 1 EACH TAB PO PRN ×2 (03:49→09:56)
[2020-04-11 08:33] VITALS: RESP 18
[2020-04-11] MEDS ORDERED: PANTOPRAZOLE 40 MG/10 ML VIAL IV SCH (09:00)
[2020-04-11] MEDS: DOCUSATE 100 MG CAP PO SCH (09:56)
[2020-04-11 12:45] VITALS: BP 105/69; PULSE 92; TEMP 98.4
--- NOTE | 2020-04-11 12:53 | P.PN ---
Subjective Progress Note Date: 04/11/20 CHIEF COMPLAINT: Breast cancer HISTORY OF PRESENT ILLNESS: The patient is a 59-year-old female status post left lumpectomy with axillary lymph node dissection, 04/10/2020. She is postop day 1. Her pain is controlled. No nausea or vomiting. ALEX is serosanguineous. ROS: No reports of nausea and vomiting. No bowel movements. No fevers or chills. No new chest pain. No productive sputum PHYSICAL EXAM: VITAL SIGNS: Reviewed CONSTITUTIONAL: Well developed and in no acute distress. EYES: Conjuctivae without sclera icterus. Extraocular movements grossly intact. HEAD, EARS, NOSE, THROAT: Moist buccal mucosa. Head is atraumatic, normocephalic. Hears conversational speech. No nasal drainage. NECK: Supple. No thyroidomegaly. RESPIRATORY: Non-labored respirations and equal bilateral excursions. CARDIOVASCULAR: Palpable 2+ radial pulses. Regular rate. Regular rhythm. ABDOMEN: Soft. No peritonitis. MUSCULOSKELETAL: No gross deformity of the lower extremities noted. No clubbing. No cyanosis. SKIN: Good skin turgor. Well perfused. NEUROLOGIC: Cranial nerves II through XII grossly intact. No focal or lateralizing signs. PSYCH: Appropriate affect. Alert and oriented to person, place and time. CHEST: Dressing is clean dry and intact with ALEX drains serosanguineous. CLINICAL LABS: None ASSESSMENT: 1. Left breast cancer PLAN: 1. She reports having home healthcare arranged. 2. ALEX teaching performed at that site. 3. Follow-up as outpatient in 1 week Objective - Vital Signs Vital signs: Vital Signs Temp 98.1 F 04/11/20 08:20 Pulse 88 04/11/20 08:20 Resp 18 04/11/20 08:20 BP 107/59 04/11/20 08:20 Pulse Ox 99 04/11/20 08:20 Intake & Output 04/10/20 04/11/20 04/11/20 18:59 06:59 18:59 Intake Total 1300 1750 Output Total 25 35 Balance 1275 1715 Weight 101 kg 100.698 kg Intake: IV 1300 Intake, IV Titration 1000 Amount D5-0.45% NaCl with KCl 1000 20Meq/l 1,000 ml @ 100 mls/hr IV .Q10H RADHA Rx#: [id number] Oral 750 Output: Drainage 35 LEFT AXILLA 35 Estimated Blood Loss 25 Other: Voiding Method Toilet # Voids 1 2 Assessment and Plan (1) Breast cancer, left Current Visit: Yes Status: Acute Code(s): C50.912 - MALIGNANT NEOPLASM OF UNSPECIFIED SITE OF LEFT FEMALE BREAST SNOMED Code(s): 710844208
--- NOTE | 2020-04-11 12:54 | P.DS ---
Providers Expected date of discharge: 04/11/20 Attending physician: Yves Morales Consults: 04/10/20 16:37 Consult Physician Routine Consulting Provider: Jacque Steen Consult Reason/Comments: med mgmt Do you want consulting provider notified?: Yes Primary care physician: Rajan Alegria - Discharge Diagnosis(es) (1) Breast cancer, left Current Visit: Yes Status: Acute Hospital Course: CHIEF COMPLAINT: Breast cancer HISTORY OF PRESENT ILLNESS: The patient is a 59-year-old female status post left lumpectomy with axillary lymph node dissection, 04/10/2020. She is postop day 1. Her pain is controlled. No nausea or vomiting. ALEX is serosanguineous. ROS: No reports of nausea and vomiting. No bowel movements. No fevers or chills. No new chest pain. No productive sputum PHYSICAL EXAM: VITAL SIGNS: Reviewed CONSTITUTIONAL: Well developed and in no acute distress. EYES: Conjuctivae without sclera icterus. Extraocular movements grossly intact. HEAD, EARS, NOSE, THROAT: Moist buccal mucosa. Head is atraumatic, normocephalic. Hears conversational speech. No nasal drainage. NECK: Supple. No thyroidomegaly. RESPIRATORY: Non-labored respirations and equal bilateral excursions. CARDIOVASCULAR: Palpable 2+ radial pulses. Regular rate. Regular rhythm. ABDOMEN: Soft. No peritonitis. MUSCULOSKELETAL: No gross deformity of the lower extremities noted. No clubbing. No cyanosis. SKIN: Good skin turgor. Well perfused. NEUROLOGIC: Cranial nerves II through XII grossly intact. No focal or lateral izing signs. PSYCH: Appropriate affect. Alert and oriented to person, place and time. CHEST: Dressing is clean dry and intact with ALEX drains serosanguineous. CLINICAL LABS: None ASSESSMENT: 1. Left breast cancer PLAN: 1. She reports having home healthcare arranged. 2. ALEX teaching performed at that site. 3. Follow-up as outpatient in 1 week Patient Condition at Discharge: Stable Plan - Discharge Summary Discharge Rx Participant: No New Discharge Prescriptions: No Action Venlafaxine HCl [Effexor] 150 mg PO HS Omeprazole [PriLOSEC] 20 mg PO HS Topiramate [Topamax] 75 mg PO HS SUMAtriptan SUCCINATE [Imitrex] 50 mg PO ONCE PRN PRN Reason: Migraine Headache Ibuprofen [Motrin] 800 mg PO TID PRN #90 tab PRN Reason: Pain Gabapentin [Neurontin] 300 mg PO HS #30 cap Anastrozole [Arimidex] 1 mg PO DAILY Multivitamin [Multivitamins Adult Gummies] 1 each PO DAILY HYDROcodone/APAP 10-325MG [[place] 10-325] 1 tab PO Q4HR PRN PRN Reason: Pain Discharge Medication List Venlafaxine HCl [Effexor] 150 mg PO HS 12/18/18 [History] Omeprazole [PriLOSEC] 20 mg PO HS 08/13/19 [History] Topiramate [Topamax] 75 mg PO HS 12/10/19 [History] SUMAtriptan SUCCINATE [Imitrex] 50 mg PO ONCE PRN 12/23/19 [History] Gabapentin [Neurontin] 300 mg PO HS #30 cap 04/01/20 [Rx] Ibuprofen [Motrin] 800 mg PO TID PRN #90 tab 04/01/20 [Rx] Anastrozole [Arimidex] 1 mg PO DAILY 04/08/20 [History] Multivitamin [Multivitamins Adult Gummies] 1 each PO DAILY 04/08/20 [History] HYDROcodone/APAP 10-325MG [[place] 10-325] 1 tab PO Q4HR PRN 04/10/20 [History] Follow up Appointment(s)/Referral(s): Yves Morales MD [Medical Doctor] - 04/16/20 9:00 am
[2020-04-12] MEDS ORDERED: PANTOPRAZOLE 40 MG TABLET PO SCH (09:00)
== END 2020-04-11 16:15 | disposition home or self-care (01) ==
LOC: OR 08:09 → 6PED 16:57 → OR 04-11 16:15
PROVIDERS: ATTEND Surgery
DX: C50.912 Malignant neoplasm of unspecified site of left female breast (principal); C77.3 Secondary and unspecified malignant neoplasm of axilla and upper limb lymph nodes; M79.7 Fibromyalgia; G43.909 Migraine, unspecified, not intractable, without status migrainosus; K21.9 Gastro-esophageal reflux disease without esophagitis; Z90.49 Acquired absence of other specified parts of digestive tract; Z82.61 Family history of arthritis; Z80.9 Family history of malignant neoplasm, unspecified; Z82.49 Family history of ischemic heart disease and other diseases of the circulatory system; Z83.6 Family history of other diseases of the respiratory system; Z79.891 Long term (current) use of opiate analgesic; Z79.899 Other long term (current) drug therapy; Z79.890 Hormone replacement therapy; Z91.048 Other nonmedicinal substance allergy status; Z79.1 Long term (current) use of non-steroidal anti-inflammatories (NSAID)
CPT/HCPCS: 19301; 38525; 88342; 88331; 88332; 88307; 88341; 76098; 38792; A9520; J2250; J1644 ×2; J1100; J2405; J0690; J2001; J3010; J1170 ×2; J0330; J2704; C9113

== ENCOUNTER 2020-04-27 12:36 | Emergency (ER) | payer OTHER ==
[2020-04-27 13:02] VITALS: RESP 18
--- NOTE | 2020-04-27 13:50 | ED ---
General Adult HPI - General Chief complaint: Skin/Abscess/Foreign Body Stated complaint: infected surgical site Time Seen by Provider: 04/27/20 13:37 Source: patient Mode of arrival: ambulatory Limitations: physical limitation - History of Present Illness Initial comments: Dictation was produced using [employer] dictation software. please excuse any gr ammatical, word or spelling errors. This patient was cared for during a federal and state declared state of emergency secondary to Covid 19 Chief Complaint: 59-year-old female presents with surgical site pain. History of Present Illness: Patient is 59-year-old female she recently had a left breast procedure performed by Dr. Ceja. On 04/10/2020 patient had a left breast where localization central lumpectomy, sentinel lymph node biopsy and axillary node dissection. At that time the drain was placed. Patient states that she is here today because she has pain along the site of where the drain is. Patient has a ALEX drain in the left breast. States that the breast does not hurt this just where it seems as though the drain is coming out from the skin. Patient states she's had serous sinus drainage of approximately 15 mL yesterday and 20 mL a day before that. Denies any fever, chills or night sweats. The ROS documented in this emergency department record has been reviewed and confirmed by me. Those systems with pertinent positive or negative responses have been documented in the HPI. All other systems are other negative and/or noncontributory. PHYSICAL EXAM: General Impression: Alert and oriented x3, not in acute distress HEENT: Normocephalic atraumatic, extra-ocular movements intact, pupils equal and reactive to light bilaterally, mucous membranes moist. Cardiovascular: Heart regular rate and rhythm Chest: Able to complete full sentences, no retractions, no tachypnea Left breast: Surgical site clean dry and intact, breast is nonerythematous. Patient does have some erythema around the drain site. There is some tenderness to palpation in that area. No induration Abdomen: abdomen soft, non-tender, non-distended, no organomegaly Musculoskeletal: Pulses present and equal in all extremities, no peripheral edema Motor: no focal deficits noted Neurological: CN II-XII grossly intact, no focal motor or sensory deficits noted Skin: Intact with no visualized rashes Psych: Normal affect and mood ED course: 59-year-old female presents with drain site pain. She had surgical procedure of the left breast on 04/10/2020. Vital signs upon arrival shows h eart rate 1:30, rest of vital signs within acceptable limits. Case is discussed with Dr. Ceja. He is told that patient has had decreasing drainage of serosanguineous fluid from the ALEX drain. Dr. Ceja requested that patient had the drain removed. Patient given prescription for Keflex and she is advised to follow-up with Dr. Morales. - Related Data Home Medications Medication Instructions Recorded Confirmed Venlafaxine HCl [Effexor] 150 mg PO HS 12/18/18 04/27/20 Topiramate [Topamax] 75 mg PO HS 12/10/19 04/27/20 Anastrozole [Arimidex] 1 mg PO HS 04/08/20 04/27/20 HYDROcodone/APAP 10-325MG [[place] 1 tab PO Q8H PRN 04/10/20 04/27/20 10-325] Phentermine HCl [Adipex-P] 37.5 mg PO DAILY 04/27/20 04/27/20 Topiramate [Topamax] 25 mg PO DAILY 04/27/20 04/27/20 Previous Rx's Medication Instructions Recorded Gabapentin [Neurontin] 300 mg PO HS #30 cap 04/01/20 Cephalexin [Keflex] 500 mg PO Q6HR 5 Days #20 cap 04/27/20 Allergies Allergy/AdvReac Type Severity Reaction Status Date / Time black cohosh Allergy Rash/Hives Verified 04/27/20 14:31 Review of Systems ROS Statement: Those systems with pertinent positive or pertinent negative responses have been documented in the HPI. ROS Other: All systems not noted in ROS Statement are negative. Past Medical History Past Medical History: Cancer, Fibromyalgia Additional Past Medical History / Comment(s): january 29 2020 diagnosed with left breast cancer. surgery on 04/10/2020. radiation to follow History of Any Multi-Drug Resistant Organisms: None Reported Past Surgical History: Cholecystectomy Additional Past Surgical History / Comment(s): scoliosis - spinal fusion when she was 16 yrs old; neck and back pain. january 29 2020 diagnosed with left breast cancer. surgery on 04/10/2020. radiation to follow. pain clinic procedures. colonoscopy. hermelinda in 2017. 1985 Past Anesthesia/Blood Transfusion Reactions: Motion Sickness Past Psychological History: No Psychological Hx Reported Smoking Status: Never smoker Past Alcohol Use History: None Reported Past Drug Use History: None Reported - Past Family History Father Family Medical History: Cancer Mother History Unknown: Yes Family Medical History: Hypertension General Exam Limitations: physical limitation Course Vital Signs 04/27/20 12:57 Temperature 98.4 F Pulse Rate 103 H Respiratory 18 Rate Blood Pressure 111/72 O2 Sat by Pulse 97 Oximetry Disposition Clinical Impression: Jhony wallis drain site pain Disposition: HOME SELF-CARE Condition: Good Instructions (If sedation given, give patient instructions): Cellulitis (ED) Prescriptions: Cephalexin [Keflex] 500 mg PO Q6HR 5 Days #20 cap Is patient prescribed a controlled substance at d/c from ED?: No Referrals: Yves Morales MD [Family Provider] - 1-2 days Time of Disposition: 15:10
[2020-04-27 15:17] VITALS: BP 118/82; PULSE 90; TEMP 98
== END 2020-04-27 15:17 | disposition home or self-care (01) ==
LOC: EC 12:36
DX: T85.848A Pain due to other internal prosthetic devices, implants and grafts, initial encounter (principal); C50.912 Malignant neoplasm of unspecified site of left female breast; Z98.1 Arthrodesis status; Z80.9 Family history of malignant neoplasm, unspecified
CPT/HCPCS: 93005; 99283

== ENCOUNTER → 2020-04-29 | Outpatient (CLI) | payer OTHER ==
[2020-04-29 13:04] VITALS: BP 114/72; PULSE 99; RESP 18; TEMP 98.2
--- NOTE | 2020-04-29 13:17 | P.PAINPG ---
Subjective Progress Note Date: 04/29/20 Melinda is a 59 y/o female who was seen for follow-up visit today. she has a history of back pain, neck pain. She has been managed with a combination of interventional pain procedures and medications. Most recently, we have held off on performing pain procedures as she has a diagnosis of breast cancer. She underwent a left breast lumpectomy on 04/10/[address] Morales. She is scheduled to see Dr. Baeza with hematology/oncology in a week. In the past, TFESI performed helped significantly for a couple months. At last visit, we started her on gabapentin 300 mg daily at bedtime and she reports good benefit from this. She continues to use [place] 10/325 3 times a day when necessary. She denies side effects from medications, medications are helping her function. Review of systems is negative for chest pain, shortness of breath, new onset weakness, numbness/tingling, abdominal pain, malaise, fever, night sweats, chills, homicidal or suicidal ideation, or bowel or bladder incontinence. Objective Physical exam: Vitals: Reviewed in EMR GENERAL: Well appearing, in no acute distress, obese PSYCH: Mood and affect is appropriate. Awake, alert, and oriented SKIN: Skin color, texture, turgor normal, no rashes or lesions HEENT: Normocephalic, atraumatic. EOM intact CV: No pedal edema RESP: Respirations are unlabored, no audible wheezing GI: Abdomen non-distended MUSCULOSKELETAL: Bilateral lower extremity strength is normal and symmetric. No atrophy or tone abnormalities are noted. Lumbar spine: Tenderness to palpation over the lumbar spine and paraspinous muscles bilaterally. Negative for pain with facet loading and back extension/rotation. Extremities: Peripheral joint ROM is full and pain free without obvious instability or laxity in all four extremities. No edema or skin discolorations noted. Gait: Gait is normal NEUR: cranial nerves are grossly intact No loss of sensation is noted. Assessment and Plan Assessment: lumbar radiculopathy neural foraminal stenosis breast CA Obesity opioid dependence. Plan: Procedures: None, she is awaiting evaluation by hematology oncology for breast cancer Medications: [place] 10/325 one tablet every 8 hours when necessary#90 with one refill, gabapentin 300mg QHS #30 with one refill Investigations: Urine drug screen sent today Follow-up: In 8 weeks for medication management PQRS Measure Charge Sheet Measure #130: Documentation of Current Meds in Medical Chart: Patient's medications documented in chart Measure #226: Tobacco Use: Screen & Cessation Intervention: Pt not a tobacco user Measure #111: Pneumonia Vaccination: Pneumococcal vaccine not administered previously given Measure #47: Advance Care Plan: Advance care planning discussed & documented, patient chose/unable to give Measure #412: Opioid Treatment Agreement: Documented signed opioid trtmnt agreemnt min once during opioid trtmnt Measure #408: Opioid Therapy Follow-up Evaluation: Patient had f/u eval minimum every 3 months during opioid therapy Measure #317: Preventitive Care & Scrn High Bld Press & F/U: Blood pressure within normal limits Measure #128: Body Mass Index (BMI) Screening & Follow-up: BMI documented above normal limits, follow-up with primary care physician Measure #131: Pain Assessment & Follow-up: Pain positive & plan documented Measure #431: Unhealthy Alcohol Use Preventative Care & Scrn: Patient not identified as an unhealthy alcohol user PQRS Measure Charge Sheet PQRS Narrative: Smoking Status Never smoker Narcotic Agreement Date Signed 06/20/19 Pain Intensity [Lower Back] 6 Hx Alcohol Use (MH) Yes: social Home Medications: Ambulatory Orders Venlafaxine HCl [Effexor] 150 mg PO HS 12/18/18 Topiramate [Topamax] 75 mg PO HS 12/10/19 Anastrozole [Arimidex] 1 mg PO HS 04/08/20 Cephalexin [Keflex] 500 mg PO Q6HR 5 Days #20 cap 04/27/20 Phentermine HCl [Adipex-P] 37.5 mg PO DAILY 04/27/20 Topiramate [Topamax] 25 mg PO DAILY 04/27/20 Gabapentin [Neurontin] 300 mg PO HS #30 cap 04/29/20 HYDROcodone/APAP 10-325MG [[place] 10-325] 1 tab PO Q8H PRN 30 Days #90 tab 04/29/20 HYDROcodone/APAP 10-325MG [[place] 10-325] 1 tab PO Q8HR PRN 30 Days #90 tab 04/29/20 Ibuprofen [Motrin Ib] 800 mg PO TID 04/29/20 Controlled Substance Measures - Controlled Substance Measures Is patient prescribed a controlled substance at discharge?: Yes When asked, does pt state using other controlled substances?: No If prescribed controlled substance>3 days was MAPS reviewed?: Yes If Rx opioid, was Start Talking consent form obtained?: Yes If opioid is for acute pain is fill amount 7 days or less?: No Was information provided regarding opioid addiction?: Yes
== END | disposition home or self-care (01) ==
LOC: PNWHC3 12:32
PROVIDERS: ATTEND Anesthesiology
DX: M54.16 Radiculopathy, lumbar region (principal); M48.061 Spinal stenosis, lumbar region without neurogenic claudication; E66.9 Obesity, unspecified; Z68.37 Body mass index [BMI] 37.0-37.9, adult; C50.919 Malignant neoplasm of unspecified site of unspecified female breast; F11.20 Opioid dependence, uncomplicated; Z79.2 Long term (current) use of antibiotics; Z79.1 Long term (current) use of non-steroidal anti-inflammatories (NSAID); Z79.899 Other long term (current) drug therapy
CPT/HCPCS: 80307; 99211; G0482

== ENCOUNTER → 2020-06-24 | Outpatient (CLI) | payer OTHER ==
[2020-06-24 08:43] VITALS: BP 107/71; PULSE 104; RESP 18; TEMP 98.3
--- NOTE | 2020-06-24 09:11 | P.PAINPG ---
Subjective Progress Note Date: 06/24/20 Melinda is a 59 y/o female who was seen for follow-up visit today. she has a history of back pain, neck pain. She has been managed with a combination of interventional pain procedures and medications. Most recently, we have held off on performing pain procedures as she has a diagnosis of breast cancer. She underwent surgery and chemo therapy. In the past he had done transforaminal epidural steroid injection helped significantly for a couple months. At last visit, we started her on gabapentin 300 mg daily at bedtime , but she is currently complaining of more pain during the daytime and she is wondering if we can increase her Neurontin to twice a day . She continues to use [place] 10/325 3 times a day when necessary. She denies side effects from medications, medications are helping her function. Review of systems is negative for chest pain, shortness of breath, new onset weakness, numbness/tingling, abdominal pain, malaise, fever, night sweats, chills, homicidal or suicidal ideation, or bowel or bladder incontinence. Objective - Vital Signs Vital signs: Vital Signs Temp 98.3 F 06/24/20 08:39 Pulse 104 H 06/24/20 08:39 Resp 18 06/24/20 08:39 BP 107/71 06/24/20 08:39 Pulse Ox 94 L 06/24/20 08:39 Intake & Output 06/23/20 06/24/20 06/24/20 18:59 06:59 18:59 Weight 98.883 kg - Exam Physical Examinations : -Constitutiona : Cooperative , not in acute distress . -HEENT : nech : supple , no Lymphadenopathy , normal thyroid size . : eyes : no ptosis , no icterus, no photophobia . - neurologic : Cranial nerve II to XII intact , no focal neurological deffecit . -psychatric : alert , oriented X 3 , appropriate affect , intact judgment and insight . -Lymphatic : no Lymphadenopathy . - musculoskeltal : Lumber spine moter stegnth lower extremities ,thigh and legs 5/5 Right side , 5/5 Left side deep tendon reflexes : normal Knee Jerk , normal ankle Jerk lumber facet Loading Test =positive Right , positive Left Range of motion of the lumbar spine Flexion 30 degrees, extension 10 degrees strait leg raising test = positive at 30 degree on the right side Fabere test= positive Right . Assessment and Plan Plan: Assessment and plan= Lumbar radiculopathy, lumbar foraminal stenosis, failed back surgery syndrome and lumbar area Breast cancer status post surgical lumpectomy and chemotherapy chronic and current use of high-risk medication (opioids) Patient denies any side effects of the current pain medication and the current treatment/medication helping the patient to do activity of daily living , Diagnoses, prognosis, treatment options, including but not limited to physical therapy, medication management, interventional therapies, and surgery, were discussed with the patient All the questions answered The narcotic consent was signed and patient agreed and understood the side effects and complications of opioid treatment. Patient signed the narcotic agreement, and was orally counseled, not to overuse, not to abuse, not to Divert , not tp sell pain medication, and to take it as prescribed only, Patient was counseled not to drive or operate heavy equipment while using narcotic medication, and advised not to use alcohol or any Illicit drugs while using the narcotis. understanding that lack of compliance with any of the above instructions, will likely to cause discharge from, the pain service, not to renew his narcotic prescriptions MAPS Reviwed and it was apropriate . Medication managements= patient will be given prescription refills for Neurontin 300 mg twice a dispense 60 with 1 refill, [place] 10/325 every 8 hours dispense 90 with 1 refill Follow-up in the pain clinic in 2 months , Time with Patient: Less than 30 PQRS Measure Charge Sheet Measure #130: Documentation of Current Meds in Medical Chart: Patient's medications documented in chart Measure #226: Tobacco Use: Screen & Cessation Intervention: Pt not a tobacco user Measure #111: Pneumonia Vaccination: Pneumococcal vaccine NOT administered or previously given Measure #47: Advance Care Plan: Advance care planning discussed & documented, pt chose/unable to give Measure #412: Opioid Treatment Agreement: Documented signed opioid trtmnt agreemnt min once during opioid trtmnt Measure #408: Opioid Therapy Follow-up Evaluation: Patient had f/u eval minimum every 3 months during opioid therapy Measure #317: Preventitive Care & Scrn High Bld Press & F/U: Normal blood press ure, f/u not required Measure #128: Body Mass Index (BMI) Screening & Follow-up: BMI documented ABOVE normal parameters - f/u documented Measure #131: Pain Assessment & Follow-up: Pain positive & plan documented, Follow-up scheduled Measure #431: Unhealthy Alcohol Use Preventative Care & Scrn: Patient not identified as an unhealthy alcohol user PQRS Narrative: Smoking Status Never smoker Narcotic Agreement Date Signed 04/29/20 Blood Pressure 107/71 Pain Intensity [Lower Back] 4 Scale Used Numeric (1 - 10) Hx Alcohol Use (MH) Yes: social Home Medications: Ambulatory Orders Venlafaxine HCl [Effexor] 150 mg PO HS 12/18/18 Topiramate [Topamax] 75 mg PO HS 12/10/19 Anastrozole [Arimidex] 1 mg PO HS 04/08/20 Phentermine HCl [Adipex-P] 37.5 mg PO DAILY 04/27/20 Ibuprofen [Motrin Ib] 800 mg PO TID PRN 04/29/20 Gabapentin [Neurontin] 300 mg PO BID #60 cap 06/24/20 HYDROcodone/APAP 10-325MG [[place] 10-325] 1 tab PO Q8H PRN 30 Days #90 tab 06/24/20 HYDROcodone/APAP 10-325MG [[place] 10-325] 1 tab PO Q8HR PRN 30 Days #90 tab 06/24/20 Controlled Substance Measures - Controlled Substance Measures Is patient prescribed a controlled substance at discharge?: Yes When asked, does pt state using other controlled substances?: No If prescribed controlled substance>3 days was MAPS reviewed?: Yes If Rx opioid, was Start Talking consent form obtained?: Yes If opioid is for acute pain is fill amount 7 days or less?: No Was information provided regarding opioid addiction?: Yes
== END | disposition home or self-care (01) ==
LOC: PNWHC3 08:19
PROVIDERS: ATTEND Specialist
DX: M48.061 Spinal stenosis, lumbar region without neurogenic claudication (principal); M96.1 Postlaminectomy syndrome, not elsewhere classified; M54.16 Radiculopathy, lumbar region; F11.90 Opioid use, unspecified, uncomplicated; Z98.890 Other specified postprocedural states; Z92.21 Personal history of antineoplastic chemotherapy; Z79.899 Other long term (current) drug therapy
CPT/HCPCS: 99211

== ENCOUNTER 2020-07-13 15:13 | Emergency (ER) | payer OTHER ==
[2020-07-13 15:35] VITALS: BP 95/62; PULSE 112; RESP 18; TEMP 98
--- NOTE | 2020-07-13 16:04 | ED ---
General Adult HPI - General Chief complaint: Allergic Reaction Stated complaint: allergic reaction Time Seen by Provider: 07/13/20 15:35 Source: patient, RN notes reviewed Mode of arrival: ambulatory Limitations: no limitations - History of Present Illness Initial comments: Patient is a pleasant 59-year-old female presenting to the emergency Department with complaints of itching. Patient is on chemotherapy. Patient has been itching for the past 3 days. Patient does have hives diffusely. Patient did go to the oncology office today and was advised to come here for steroid shot. No fevers. No history of similar symptoms previously. Patient does have breast cancer. - Related Data Home Medications Medication Instructions Recorded Confirmed Venlafaxine HCl [Effexor] 150 mg PO HS 12/18/18 06/24/20 Topiramate [Topamax] 75 mg PO HS 12/10/19 06/24/20 Anastrozole [Arimidex] 1 mg PO HS 04/08/20 06/24/20 Phentermine HCl [Adipex-P] 37.5 mg PO DAILY 04/27/20 06/24/20 Ibuprofen [Motrin Ib] 800 mg PO TID PRN 04/29/20 06/24/20 Previous Rx's Medication Instructions Recorded Gabapentin [Neurontin] 300 mg PO BID #60 cap 06/24/20 HYDROcodone/APAP 10-325MG [[place] 1 tab PO Q8H PRN 30 Days #90 tab 06/24/20 10-325] HYDROcodone/APAP 10-325MG [[place] 1 tab PO Q8HR PRN 30 Days #90 tab 06/24/20 10-325] Allergies Allergy/AdvReac Type Severity Reaction Status Date / Time black cohosh Allergy Rash/Hives Verified 07/13/20 15:35 Review of Systems ROS Statement: Those systems with pertinent positive or pertinent negative responses have been documented in the HPI. ROS Other: All systems not noted in ROS Statement are negative. Constitutional: Denies: fever Eyes: Denies: eye pain ENT: Denies: ear pain Respiratory: Denies: cough Cardiovascular: Denies: chest pain, palpitations Endocrine: Denies: fatigue Gastrointestinal: Denies: abdominal pain Genitourinary: Denies: dysuria Musculoskeletal: Denies: as per HPI Skin: Reports: rash, pruritus Neurological: Denies: weakness Past Medical History Past Medical History: Cancer, Fibromyalgia Additional Past Medical History / Comment(s): january 29 2020 diagnosed with left breast cancer. surgery on 04/10/2020. radiation to follow History of Any Multi-Drug Resistant Organisms: None Reported Past Surgical History: Cholecystectomy Additional Past Surgical History / Comment(s): scoliosis - spinal fusion when she was 16 yrs old; neck and back pain. january 29 2020 diagnosed with left breast cancer. surgery on 04/10/2020. radiation to follow. pain clinic procedures. colonoscopy. hermelinda in 2017. 1985 Past Anesthesia/Blood Transfusion Reactions: Motion Sickness Past Psychological History: No Psychological Hx Reported Past Alcohol Use History: None Reported Past Drug Use History: None Reported - Past Family History Father Family Medical History: Cancer Mother History Unknown: Yes Family Medical History: Hypertension General Exam Limitations: no limitations General appearance: alert, in no apparent distress Head exam: Present: normocephalic Eye exam: Present: normal appearance Neck exam: Present: normal inspection Respiratory exam: Present: normal lung sounds bilaterally Cardiovascular Exam: Present: regular rate, normal rhythm GI/Abdominal exam: Present: soft. Absent: tenderness Extremities exam: Present: normal inspection Back exam: Present: normal inspection Neurological exam: Present: alert Psychiatric exam: Present: normal affect, normal mood Skin exam: Present: urticaria Course Vital Signs 07/13/20 15:34 Temperature 98.0 F Pulse Rate 112 H Respiratory 18 Rate Blood Pressure 95/62 O2 Sat by Pulse 97 Oximetry Medical Decision Making - Medical Decision Making Case was discussed with practitioner Zulema zaidi who does agree that patient was sent for steroid shot and does not need anything further. She is in agreement with also providing a Benadryl shot. She already did prescribe her oral steroids and sent that to the pharmacy. Disposition Clinical Impression: Urticaria Disposition: HOME SELF-CARE Condition: Stable Instructions (If sedation given, give patient instructions): Urticaria (ED) Additional Instructions: Please follow-up with her care physician in the next couple days for recheck. Please follow-up with Zulema zaidi her oncologist within the next couple of days also for recheck. Return for any difficulty breathing, swelling of the lips or tongue or throat, worsening symptoms or any other concerns. It is recommended not to drive with Benadryl injection as it may make you drowsy. Is patient prescribed a controlled substance at d/c from ED?: No Referrals: Rajan Alegria III, MD [Primary Care Provider] - 1-2 days Time of Disposition: 16:03
[2020-07-13] MEDS ORDERED: diphenhydrAMINE 50 MG/ML 1 ML VIAL IM STA (16:07)
[2020-07-13] MEDS ORDERED: methylPREDNISolone SOD SUCCI 125 MG/2 ML VIAL IM ONE (16:07)
== END 2020-07-13 16:14 | disposition home or self-care (01) ==
LOC: EC 15:13
DX: L50.0 Allergic urticaria (principal); C50.912 Malignant neoplasm of unspecified site of left female breast; M79.7 Fibromyalgia; Z79.1 Long term (current) use of non-steroidal anti-inflammatories (NSAID); Z79.811 Long term (current) use of aromatase inhibitors; Z91.048 Other nonmedicinal substance allergy status; Z80.9 Family history of malignant neoplasm, unspecified; Z98.1 Arthrodesis status; Z98.890 Other specified postprocedural states
CPT/HCPCS: 99283; 96372 ×2; J1200; J2930

== ENCOUNTER → 2020-08-19 | Outpatient (CLI) | payer OTHER ==
[2020-08-19 08:23] VITALS: BP 99/62; PULSE 114; RESP 14; TEMP 98.2
--- NOTE | 2020-08-19 08:25 | P.PN ---
Subjective Progress Note Date: 08/19/20 Melinda is a 59 y/o female who was seen for follow-up visit today. she has a history of back pain, neck pain. She has been managed with a combination of interventional pain procedures and medications. she is also diagnosed with breast cancer. She underwent surgery and chemo therapy. She is going to start traditional therapy soon , she is complaining of generalized pain everywhere in her body . She continues to use [place] 10/325 3 times , Neurontin 300 mg twice a a day when necessary. She denies side effects from medications, medications are helping her function. Review of systems is negative for chest pain, shortness of breath, new onset weakness, numbness/tingling, abdominal pain, malaise, fever, night sweats, chills, homicidal or suicidal ideation, or bowel or bladder incontinence. Assessment and Plan Plan: -Constitutiona : Cooperative , not in acute distress . -HEENT : nech : supple , no Lymphadenopathy , normal thyroid size . : eyes : no ptosis , no icterus, no photophobia . - neurologic : Cranial nerve II to XII intact , no focal neurological deffecit . -psychatric : alert , oriented X 3 , appropriate affect , intact judgment and insight . -Lymphatic : no Lymphadenopathy . - musculoskeltal : Lumber spine moter stegnth lower extremities ,thigh and legs 5/5 Right side , 5/5 Left side deep tendon reflexes : normal Knee Jerk , normal ankle Jerk lumber facet Loading Test =positive Right , positive Left Range of motion of the lumbar spine Flexion 30 degrees, extension 10 degrees strait leg raising test = positive at 30 degree on the right side Fabere test= positive Right . Assessment and plan= Lumbar radiculopathy, lumbar foraminal stenosis, failed back surgery syndrome and lumbar area Breast cancer status post surgical lumpectomy and chemotherapy chronic and current use of high-risk medication (opioids) Patient denies any side effects of the current pain medication and the current treatment/medication helping the patient to do activity of daily living , Diagnoses, prognosis, treatment options, including but not limited to physical therapy, medication management, interventional therapies, and surgery, were discussed with the patient All the questions answered The narcotic consent was signed and patient agreed and understood the side effects and complications of opioid treatment. Patient signed the narcotic agreement, and was orally counseled, not to overuse, not to abuse, not to Divert , not tp sell pain medication, and to take it as prescribed only, Patient was counseled not to drive or operate heavy equipment while using narcotic medication, and advised not to use alcohol or any Illicit drugs while using the narcotis. understanding that lack of compliance with any of the above instructions, will likely to cause discharge from, the pain service, not to renew his narcotic prescriptions MAPS Reviwed and it was apropriate . Urine drug screen checked and it was appropriate Medication managements= patient will be given prescription refills for Neurontin 300 mg twice a dispense 60 with 1 refill, [place] 10/325 every 8 hours dispense 90 with 1 refill Follow-up in the pain clinic in 2 months , Time with Patient: Less than 30 PQRS Measure Charge Sheet Measure #130: Documentation of Current Meds in Medical Chart: Patient's medications documented in chart Measure #226: Tobacco Use: Screen & Cessation Intervention: Pt not a tobacco user Measure #111: Pneumonia Vaccination: Pneumococcal vaccine NOT administered or previously given Measure #47: Advance Care Plan: Advance care planning discussed & documented, pt chose/unable to give Measure #412: Opioid Treatment Agreement: Documented signed opioid trtmnt agreemnt min once during opioid trtmnt Measure #408: Opioid Therapy Follow-up Evaluation: Patient had f/u eval minimum every 3 months during opioid therapy Measure #317: Preventitive Care & Scrn High Bld Press & F/U: Normal blood pressure, f/u not required Measure #128: Body Mass Index (BMI) Screening & Follow-up: BMI documented ABOVE normal parameters - f/u documented Measure #131: Pain Assessment & Follow-up: Pain positive & plan documented, Follow-up scheduled Measure #431: Unhealthy Alcohol Use Preventative Care & Scrn: Patient not identified as an unhealthy alcohol user PQRS Narrative: Time with Patient: Less than 30
== END | disposition home or self-care (01) ==
LOC: PNWHC3 08:00
PROVIDERS: ATTEND Specialist
DX: M48.061 Spinal stenosis, lumbar region without neurogenic claudication (principal); M96.1 Postlaminectomy syndrome, not elsewhere classified; M54.16 Radiculopathy, lumbar region; Z92.21 Personal history of antineoplastic chemotherapy; Z98.890 Other specified postprocedural states; Z85.3 Personal history of malignant neoplasm of breast; Z79.891 Long term (current) use of opiate analgesic; Z79.890 Hormone replacement therapy
CPT/HCPCS: 99211

== ENCOUNTER → 2020-10-14 | Outpatient (CLI) | payer OTHER ==
[2020-10-14 08:16] VITALS: BP 120/71; PULSE 114; RESP 18; TEMP 97.9
--- NOTE | 2020-10-14 08:24 | P.PN ---
Subjective Progress Note Date: 10/14/20 Melinda is a 59 y/o female who was seen for follow-up visit today. she has a history of back pain, neck pain. She has been managed with a combination of interventional pain procedures and medications. also she has a diagnosis of breast cancer. She underwent surgery and chemo therapy. In the past he had done transforaminal epidural steroid injection helped significantly for a couple months. Previously we have done RFA of the medial branch lumbar area . She continues to use [place] 10/325 3 times a day when necessary. And Neurontin 300 mg twice a day She denies side effects from medications, medications are helping her function. Today she is complaining of numbness and tingling sensation in both hand radiated from the wrist to the fingertips Review of systems is negative for chest pain, shortness of breath, new onset weakness, abdominal pain, malaise, fever, night sweats, chills, homicidal or suicidal ideation, or bowel or bladder incontinence. Objective - Vital Signs Vital signs: Vital Signs Temp 97.9 F 10/14/20 08:13 Pulse 114 H 10/14/20 08:13 Resp 18 10/14/20 08:13 BP 120/71 10/14/20 08:13 Pulse Ox 98 10/14/20 08:13 - Exam Physical Examinations : -Constitutiona : Cooperative , not in acute distress . -HEENT : nech : supple , no Lymphadenopathy , normal thyroid size . : eyes : no ptosis , no icterus, no photophobia . - neurologic : Cranial nerve II to XII intact , no focal neurological deffecit . -psychatric : alert , oriented X 3 , appropriate affect , intact judgment and insight . -Lymphatic : no Lymphadenopathy . - musculoskeltal : Lumber spine moter stegnth lower extremities ,thigh and legs 5/5 Right side , 5/5 Left side deep tendon reflexes : normal Knee Jerk , normal ankle Jerk lumber facet Loading Test =positive Right , positive Left Range of motion of the lumbar spine Flexion 30 degrees, extension 10 degrees strait leg raising test = positive at 30 degree on the right side Fabere test= positive Right . 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 Possible carpal tunnel syndrome upper extremity Breast cancer status post surgical lumpectomy and chemotherapy chronic and current use of high-risk medication (opioids) Patient denies any side effects of the current pain medication and the current treatment/medication helping the patient to do activity of daily living , Diagnoses, prognosis, treatment options, including but not limited to physical therapy, medication management, interventional therapies, and surgery, were discussed with the patient All the questions answered The narcotic consent was signed and patient agreed and understood the side effects and complications of opioid treatment. Patient signed the narcotic agreement, and was orally counseled, not to overuse, not to abuse, not to Divert , not tp sell pain medication, and to take it as prescribed only, Patient was counseled not to drive or operate heavy equipment while using marcelo cotic medication, and advised not to use alcohol or any Illicit drugs while using the narcotis. understanding that lack of compliance with any of the above instructions, will likely to cause discharge from, the pain service, not to renew his narcotic prescriptions MAPS Reviwed and it was apropriate . Medication managements= patient will be given prescription refills for Neurontin 300 mg twice a dispense 60 with 1 refill, [place] 10/325 every 8 hours dispense 90 with 1 refill Follow-up in the pain clinic in 2 months Patient given a referral for evaluation regarding carpal tunnel syndrome , Time with Patient: Less than 30 PQRS Measure Charge Sheet Measure #130: Documentation of Current Meds in Medical Chart: Patient's medications documented in chart Measure #226: Tobacco Use: Screen & Cessation Intervention: Pt not a tobacco user Measure #111: Pneumonia Vaccination: Pneumococcal vaccine NOT administered or previously given Measure #47: Advance Care Plan: Advance care planning discussed & documented, pt chose/unable to give Measure #412: Opioid Treatment Agreement: Documented signed opioid trtmnt agreemnt min once during opioid trtmnt Measure #408: Opioid Therapy Follow-up Evaluation: Patient had f/u eval minimum every 3 months during opioid therapy Measure #317: Preventitive Care & Scrn High Bld Press & F/U: Normal blood pressure, f/u not required Measure #128: Body Mass Index (BMI) Screening & Follow-up: BMI documented ABOVE normal parameters - f/u documented Measure #131: Pain Assessment & Follow-up: Pain positive & plan documented, Follow-up scheduled Measure #431: Unhealthy Alcohol Use Preventative Care & Scrn: Patient not identified as an unhealthy alcohol user PQRS Narrative:
== END | disposition home or self-care (01) ==
LOC: PNWHC3 08:00
PROVIDERS: ATTEND Specialist
DX: M48.061 Spinal stenosis, lumbar region without neurogenic claudication (principal); M96.1 Postlaminectomy syndrome, not elsewhere classified; M47.26 Other spondylosis with radiculopathy, lumbar region; Z98.890 Other specified postprocedural states; Z79.891 Long term (current) use of opiate analgesic; Z92.21 Personal history of antineoplastic chemotherapy
CPT/HCPCS: 99211

== ENCOUNTER → 2020-12-09 | Outpatient (CLI) | payer OTHER ==
[2020-12-09 08:22] VITALS: BP 111/71; PULSE 113; RESP 16; TEMP 98.2
--- NOTE | 2020-12-09 08:24 | P.PAINPG ---
Subjective Progress Note Date: 12/09/20 Ann presents for follow-up today secondary to chronic neck pain and extremity pain. She also reports that she had a new onset left knee pain for about one week. She reports that she has pain with extension of the knee. She has pain with walking in the left knee. She denies any swelling or any injury to the knee. She reports that nothing is really made it better as of yet. She still working and trying to exercise regularly. As for her chronic pains has been no change. Medications seem to be improving her symptoms and improving her overall activity. She denies any side effects from those medications. She denies any new headaches, nausea vomiting, chest pain, bowel or bladder incontin ence. Objective - Vital Signs Vital signs: Vital Signs Temp 98.2 F 12/09/20 08:17 Pulse 113 H 12/09/20 08:17 Resp 16 12/09/20 08:17 BP 111/71 12/09/20 08:17 Pulse Ox 100 12/09/20 08:17 Intake & Output 12/08/20 12/09/20 12/09/20 18:59 06:59 18:59 Weight 94.347 kg - Exam PHYSICAL EXAM: Constitutional: Awake and alert no distress Cardiovascular exam: Regular rate, no lower extremity edema, palpable pulses bilaterally Respiratory exam: No audible wheezing, no accessory muscle usage Abdominal exam: Soft nontender Muscular skeletal exam: - Cervical spine: Nontender to palpation bilaterally. Range of motion is not limited. Spurling is negative bilateral. Facet loading is negative bilaterally - Lumbar spine: Preserved lumbar lordosis. No changes in skin. Nontender palpation bilateral. Patient has full range of motion in flexion and extension as well as lateral sidebending. Straight leg raise is negative. Facet loading is negative. Nontender over the SI joints. HUYEN Negative, Gaenselons negative, SI Joint compression negative. Left knee exam reveals nontender knee, there is no swelling or erythema noted. There are no masses noted posteriorly. There is no pain with manipulation of the patella. There is some pain with extension of the knee fully. Grind's test is negative. Neuro exam: Normal sensation bilateral upper and lower extremities. Deep tendon reflexes are 2+ bilaterally. Ma's is negative Psychiatric exam: Cooperative, good insight Assessment and Plan Assessment: #1 chemotherapy-induced neuropathy #2 left knee pain Plan: After review of the records and examination the patient, believe that the patient has been stable on the current medications. As for her left knee pain, this is an acute injuries only been about one week. We discussed exercises to perform home meant to strengthen the knee. If she is not better after 2 weeks she should do a formal physical therapy session. Discussed this with the pat nehemiasnt asked her to give me a call if she has any questions or concerns. I have spent 32 minutes on patient care today. The time was used to review the medical records including relevant urine studies and Prescription history (MAPs), review of the available imaging, evaluation and examination of the patient, coordination of care with the medical staff and if applicable referring physicians, as well as creation of the medical record. PQRS Measure Charge Sheet Measure #130: Documentation of Current Meds in Medical Chart: Patient's medications documented in chart PQRS Narrative: Smoking Status Never smoker Narcotic Agreement Date Signed 04/29/20 Blood Pressure 111/71 Pain Intensity [Hand] 7 Scale Used Numeric (1 - 10) Hx Alcohol Use (MH) Yes: social Home Medications: Ambulatory Orders Venlafaxine HCl [Effexor] 150 mg PO HS 12/18/18 Topiramate [Topamax] 75 mg PO HS 12/10/19 Anastrozole [Arimidex] 1 mg PO HS 04/08/20 Phentermine HCl [Adipex-P] 37.5 mg PO DAILY 04/27/20 Ibuprofen [Motrin Ib] 800 mg PO TID PRN 04/29/20 Gabapentin [Neurontin] 300 mg PO BID #60 cap 12/09/20 HYDROcodone/APAP 10-325MG [[place] 10-325] 1 tab PO Q8HR PRN 30 Days #90 tab 12/09/20 HYDROcodone/APAP 10-325MG [[place] 10-325] 1 tab PO Q8HR PRN 30 Days #90 tab 12/09/20 Controlled Substance Measures - Controlled Substance Measures Is patient prescribed a controlled substance at discharge?: Yes When asked, does pt state using other controlled substances?: No If prescribed controlled substance>3 days was MAPS reviewed?: Yes If Rx opioid, was Start Talking consent form obtained?: Yes If opioid is for acute pain is fill amount 7 days or less?: No Was information provided regarding opioid addiction?: Yes
== END | disposition home or self-care (01) ==
LOC: PNWHC3 08:04
PROVIDERS: ATTEND Hospitalist
DX: M25.562 Pain in left knee (principal); G62.9 Polyneuropathy, unspecified; Z79.891 Long term (current) use of opiate analgesic; Z79.1 Long term (current) use of non-steroidal anti-inflammatories (NSAID); Z79.899 Other long term (current) drug therapy
CPT/HCPCS: 80307; 99212; G0482

== ENCOUNTER → 2021-01-20 | Outpatient (CLI) | payer OTHER ==
--- NOTE | 2021-01-20 14:28 | MM ---
Reason for exam: additional evaluation requested from prior study. Last mammogram was performed 1 year ago. History: Patient is postmenopausal and has history of breast cancer at age 59. Malignant MG pre op needle loc LT of the left breast, April 10, 2020. Lumpectomy of the left breast, April 10, 2020. Malignant US biopsy breast VAD LT of the left breast, January 21, 2020. Taking estrogen for 2 years. Physical Findings: Nurse did not find any significant physical abnormalities on exam. MG Diagnostic Mammo w CAD FLORY Bilateral CC and MLO view(s) were taken. Prior study comparison: January 21, 2020, left breast MG diagnostic mammo LT wo CAD. January 13, 2020, bilateral MG diagnostic mammo w CAD FLORY. The breast tissue is heterogeneously dense. This may lower the sensitivity of mammography. Asymmetric breast tissue greater in the left breast. Post surgical changes left breast. No significant new findings when compared with previous films. These results were verbally communicated with the patient and result sheet given to the patient on 01/20/21. ASSESSMENT: Benign, BI-RAD 2 RECOMMENDATION: Follow-up diagnostic mammogram of both breasts in 1 year.
--- NOTE | 2021-01-20 15:43 | BD ---
EXAMINATION TYPE: Axial Bone Density DATE OF EXAM: 01/20/2021 COMPARISON: NONE CLINICAL HISTORY: Height: 5 FT 4 IN Weight: 214 FRAX RISK QUESTIONS: Alcohol (3 or more units per day): NO Family History (Parent hip fracture): YES Glucocorticoids (More than 3mos): NO (Ex: prednisone, prednisolone, methylprednisolone, dexamethasone, and hydrocortisone). History of Fracture in Adulthood: NO Secondary Osteoporosis: 1. Type 1 Diabetes: NO 2. Hyperthyroidism: NO 3. Menopause before 45: NO 4. Malnutrition: NO 5. Chronic liver disease: NO Rheumatoid Arthritis: NO Current Tobacco Use: NO RISK FACTORS HISTORY OF: Surgery to Spine/Hip(right/left)/Wrist (right/left): SPINAL FUSION AGE 16 SCOLIOSIS Family History of Osteoporosis: YES Active: NO Diet low in dairy products/other sources of calcium: NO Postmenopausal woman: AGE 50 Take estrogen and/or progesterone medications: TOOK HRT FOR APPROX 3 YEARS NOT NOW Lost more than 2 inches in height since high school: NO MEDICATIONS: Additional Medications: HORMONE G[place], EFFEXOR, GABAPENTIN, NORCO,TOPAMAX,MOTRIN Additional History: LEFT BREAST CANCER 2020 RADIATION AND CHEMO AND GAVIOTA EXAM MEASUREMENTS: Bone mineral density about the R hip (g/cm2): 0.902 Bone mineral density about the L hip (g/cm2): 0.816 T Score values are as follows: -----R Neck: -1.0 -----L Neck: -1.6 -----R Total: -0.8 -----L Total: -1.4 BASELINE Bone mineral density about the R Wrist (g/cm2): 0.651 T Score values are as follows: -----Dist. R+U: -0.9 -----Prox. R+U: -0.1 -----Radius total: -0.4 BASELINE IMPRESSION: Osteopenia (T Score between -2.5 and -1). There is slightly increased risk of fracture and the patient may be considered for treatment. Re-Screen 2-5 years. NOTE: T-SCORE=SD OF THE YOUNG ADULT MEAN.
== END | disposition home or self-care (01) ==
LOC: RADMAMWWP 13:36
PROVIDERS: ATTEND Internal Medicine Hematology & Oncology
DX: Z08 Encounter for follow-up examination after completed treatment for malignant neoplasm (principal); Z85.3 Personal history of malignant neoplasm of breast; M85.80 Other specified disorders of bone density and structure, unspecified site
CPT/HCPCS: 77066; 77080

== ENCOUNTER → 2021-03-03 | Outpatient (CLI) | payer OTHER ==
--- NOTE | 2021-03-03 08:27 | P.PAINPG ---
Subjective Progress Note Date: 03/03/21 Ann presents for follow-up today secondary to chronic neck pain and extremity pain. In her last visit she reported new onset left knee pain, we encouraged supportive care and PT in the future if it did not get better. Only she recently got cold in January. She has recovered from that, however she s till notes significant fatigue. Overall her pain seems to be a little bit worse which she blames in the virus. Still has pain in her left knee, has not changed since last time. Has not been able to do physical therapy since she had the virus. She reports that nothing is really made it better as of yet. She still working and trying to exercise regularly. As for her chronic pains has been no change. Medications seem to be improving her symptoms and improving her overall activity. She denies any side effects from those medications. She denies any new headaches, nausea vomiting, chest pain, bowel or bladder incontinence. Objective - Exam PHYSICAL EXAM: Constitutional: Awake and alert no distress Cardiovascular exam: Regular rate, no lower extremity edema, palpable pulses bilaterally Respiratory exam: No audible wheezing, no accessory muscle usage Abdominal exam: Soft nontender Muscular skeletal exam: - Cervical spine: Nontender to palpation bilaterally. Range of motion is not limited. Spurling is negative bilateral. Facet loading is negative bilaterally - Lumbar spine: Preserved lumbar lordosis. No changes in skin. Nontender palpation bilateral. Patient has full range of motion in flexion and extension as well as lateral sidebending. Straight leg raise is negative. Facet loading is negative. Nontender over the SI joints. HUYEN Negative, Gaenselons negative, SI Joint compression negative. Left knee exam reveals nontender knee, there is no swelling or erythema noted. There are no masses noted posteriorly. There is no pain with manipulation of the patella. There is some pain with extension of the knee fully. Neuro exam: Normal sensation bilateral upper and lower extremities. Deep tendon reflexes are 2+ bilaterally. Ma's is negative Psychiatric exam: Cooperative, good insight Assessment and Plan Assessment: #1 chemotherapy-induced neuropathy #2 left knee pain Plan: After review of the records and examination the patient, believe that the patient has been stable on the current medications. I encouraged her to remain as active as possible to help her get her energy back. We also discussed doing formal physical therapy for her left knee, she will try to do exercises at home. I have spent 22 minutes on patient care today. The time was used to review the medical records including relevant urine studies and Prescription history (MAPs), review of the available imaging, evaluation and examination of the patient, coordination of care with the medical staff and if applicable referring physicians, as well as creation of the medical record. PQRS Measure Charge Sheet PQRS Narrative: Smoking Status Never smoker Narcotic Agreement Date Signed 04/29/20 Hx Alcohol Use (MH) Yes: social Home Medications: Ambulatory Orders Venlafaxine HCl [Effexor] 150 mg PO HS 12/18/18 Topiramate [Topamax] 75 mg PO HS 12/10/19 Anastrozole [Arimidex] 1 mg PO HS 04/08/20 Phentermine HCl [Adipex-P] 37.5 mg PO DAILY 04/27/20 Gabapentin [Neurontin] 300 mg PO BID #60 cap 02/03/21 Gabapentin [Neurontin] 300 mg PO BID 30 Days #60 cap 03/03/21 HYDROcodone/APAP 10-325MG [[place] 10-325] 1 tab PO Q8HR PRN 30 Days #90 tab 03/03/21 HYDROcodone/APAP 10-325MG [[place] 10-325] 1 tab PO Q8HR PRN 30 Days #90 tab 03/03/21 Ibuprofen [Motrin Ib] 400 mg PO TID PRN 30 Days #90 tab 03/03/21 Controlled Substance Measures - Controlled Substance Measures Is patient prescribed a controlled substance at discharge?: Yes When asked, does pt state using other controlled substances?: No If prescribed controlled substance>3 days was MAPS reviewed?: Yes If Rx opioid, was Start Talking consent form obtained?: Yes If opioid is for acute pain is fill amount 7 days or less?: No Was information provided regarding opioid addiction?: Yes
[2021-03-03 08:33] VITALS: BP 113/75; PULSE 104; RESP 18; TEMP 97.9
== END ==
LOC: PNWHC3 08:10
PROVIDERS: ATTEND Anesthesiology
DX: G62.0 Drug-induced polyneuropathy (principal); M25.562 Pain in left knee; T45.1X5A Adverse effect of antineoplastic and immunosuppressive drugs, initial encounter
CPT/HCPCS: 99211

== ENCOUNTER → 2021-04-28 | Outpatient (CLI) | payer OTHER ==
[2021-04-28 08:27] VITALS: BP 107/70; PULSE 89; RESP 18; TEMP 97.9
--- NOTE | 2021-04-28 08:49 | P.PN ---
Subjective Progress Note Date: 04/28/21 Melinda is a 60 y/o female who was seen for follow-up visit today. she has a history of back pain, neck pain. She has been managed with a combination of interventional pain procedures and medications. also she has a diagnosis of breast cancer. She underwent surgery and chemo therapy. In the past we had done transforaminal epidural steroid injection helped significantly for a couple months. Previously we have done RFA of the medial branch lumbar area . She continues to use [place] 10/325 3 times a day when necessary. And Neurontin 300 mg twice a day She denies side effects from medications, medications are helping her function. 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 Physical Examinations : -Constitutiona : Cooperative , not in acute distress . -HEENT : nech : supple , no Lymphadenopathy , normal thyroid size . : eyes : no ptosis , no icterus, no photophobia . - neurologic : Cranial nerve II to XII intact , no focal neurological deffecit . -psychatric : alert , oriented X 3 , appropriate affect , intact judgment and insight . -Lymphatic : no Lymphadenopathy . - musculoskeltal : upper extremiteies = she had normal motor strength that she is complaining of severe numbness and tingling sensation Lumber spine moter stegnth lower extremities ,thigh and legs 5/5 Right side , 5/5 Left side deep tendon reflexes : normal Knee Jerk , normal ankle Jerk lumber facet Loading Test =positive Right , positive Left Range of motion of the lumbar spine Flexion 30 degrees, extension 10 degrees strait leg raising test = positive at 30 degree on the right side Fabere test= positive Right . 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 Chemotherapy-induced neuropathy Breast cancer status post surgical lumpectomy and chemotherapy chronic and current use of high-risk medication (opioids) Patient denies any side effects of the current pain medication and the current treatment/medication helping the patient to do activity of daily living , Diagnoses, prognosis, treatment options, including but not limited to physical therapy, medication management, interventional therapies, and surgery, were discussed with the patient All the questions answered The narcotic consent was signed and patient agreed and understood the side effects and complications of opioid treatment. Patient signed the narcotic agreement, and was orally counseled, not to overuse, not to abuse, not to Divert , not tp sell pain medication, and to take it as prescribed only, Patient was counseled not to drive or operate heavy equipment while using narcotic medication, and advised not to use alcohol or any Illicit drugs while using the narcotis. understanding that lack of compliance with any of the above instructions, will likely to cause discharge from, the pain service, not to renew his narcotic prescriptions MAPS Reviwed and it was apropriate . Medication managements= patient will be given prescription refills for Neurontin 300 mg twice a dispense 60 with 1 refill, [place] 10/325 every 8 hours dispense 90 with 1 refill Motrin 600 mg every 8 hours when necessary dispense 90 with 1 refill Follow-up in the pain clinic in 2 months , Time with Patient: Less than 30 PQRS Measure Charge Sheet Measure #130: Documentation of Current Meds in Medical Chart: Patient's medications documented in chart Measure #226: Tobacco Use: Screen & Cessation Intervention: Pt not a tobacco us er Measure #111: Pneumonia Vaccination: Pneumococcal vaccine NOT administered or previously given Measure #47: Advance Care Plan: Advance care planning discussed & documented, pt chose/unable to give Measure #412: Opioid Treatment Agreement: Documented signed opioid trtmnt agreemnt min once during opioid trtmnt Measure #408: Opioid Therapy Follow-up Evaluation: Patient had f/u eval minimum every 3 months during opioid therapy Measure #317: Preventitive Care & Scrn High Bld Press & F/U: Normal blood pressure, f/u not required Measure #128: Body Mass Index (BMI) Screening & Follow-up: BMI documented ABOVE normal parameters - f/u documented Measure #131: Pain Assessment & Follow-up: Pain positive & plan documented, Follow-up scheduled Measure #431: Unhealthy Alcohol Use Preventative Care & Scrn: Patient not identified as an unhealthy alcohol user PQRS Narrative: Objective - Vital Signs Vital signs: Vital Signs Temp 97.9 F 04/28/21 08:24 Pulse 89 04/28/21 08:24 Resp 18 04/28/21 08:24 BP 107/70 04/28/21 08:24 Pulse Ox 96 04/28/21 08:24
== END ==
LOC: PNWHC3 08:07
PROVIDERS: ATTEND Specialist
DX: M47.26 Other spondylosis with radiculopathy, lumbar region (principal); M48.061 Spinal stenosis, lumbar region without neurogenic claudication; M96.1 Postlaminectomy syndrome, not elsewhere classified; G62.0 Drug-induced polyneuropathy; T45.1X5A Adverse effect of antineoplastic and immunosuppressive drugs, initial encounter; C50.919 Malignant neoplasm of unspecified site of unspecified female breast; Z98.890 Other specified postprocedural states; Z79.891 Long term (current) use of opiate analgesic; Z88.5 Allergy status to narcotic agent; Z88.8 Allergy status to other drugs, medicaments and biological substances
CPT/HCPCS: 99211

== ENCOUNTER → 2021-05-28 | Outpatient (CLI) | payer OTHER ==
[~2021-05-28] MED LIST changes: -ACETAMINOPHEN TAB 500 MG TAB PO ONE; -DEXAMETHASONE SOD PHOSPHATE 10 MG/ML 1 ML VIAL IV ONE; -HEPARIN SODIUM,PORCINE 5,000 UNIT/ML 1 ML VIAL SQ ONE; -LACTATED RINGERS 1,000 ML IV SCH; -LIDOCAINE 1% (10MG/ML) FOR IV START INTRADERMA PRN; -MIDAZOLAM 2 MG/2 ML VIAL IV PRN; -ONDANSETRON 4 MG/2 ML VIAL IVP ONE; -Pre Op ABX Message 1 EACH MISC MISCELLANE ONE; +SODIUM CHLORIDE 0.9% 500 ML 500 ML in EMPTY BAG 1 BAG IV PRN; +ZOLEDRONIC ACID 4 MG in SODIUM CHLORIDE 0.9% 100 ML IV NR
[2021-05-28 14:11] VITALS: BP 118/77; PULSE 101; RESP 16; TEMP 98.2
== END ==
LOC: PROCWHC3 13:37
PROVIDERS: ATTEND Internal Medicine Hematology & Oncology
DX: M85.9 Disorder of bone density and structure, unspecified (principal); Z88.8 Allergy status to other drugs, medicaments and biological substances; Z91.048 Other nonmedicinal substance allergy status
CPT/HCPCS: 96365; J3489

== ENCOUNTER → 2021-06-23 | Outpatient (CLI) | payer OTHER ==
--- NOTE | 2021-06-23 08:04 | P.PAINPG ---
Subjective Progress Note Date: 06/23/21 Melinda is a 60 y/o female who was seen for follow-up visit today. she has a history of back pain, neck pain. She has been managed with a combination of interventional pain procedures and medications. also she has a diagnosis of breast cancer. She underwent surgery and chemo therapy. In the past we had done transforaminal epidural steroid injection helped significantly for a couple months. Previously we have done RFA of the medial branch lumbar area . She continues to use [place] 10/325 3 times a day when necessary. And Neurontin 300 mg twice a day She denies side effects from medications, medications are helping her function. 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 She also complains of worsening pain in her shins at night. She wears a heating pad for this which she says helps which is not sure why her shins are hurting. Review of systems is negative for chest pain, shortness of breath, new onset weakness, abdominal pain, malaise, fever, night sweats, chills, homicidal or suicidal ideation, or bowel or bladder incontinence. Physical Examinations : -Constitutiona : Cooperative , not in acute distress . -HEENT : nech : supple , no Lymphadenopathy , normal thyroid size . : eyes : no ptosis , no icterus, no photophobia . - neurologic : Cranial nerve II to XII intact , no focal neurological deffecit . -psychatric : alert , oriented X 3 , appropriate affect , intact judgment and insight . -Lymphatic : no Lymphadenopathy . - musculoskeltal : upper extremiteies = she had normal motor strength that she is complaining of severe numbness and tingling sensation Lumber spine moter stegnth lower extremities ,thigh and legs 5/5 Right side , 5/5 Left side deep tendon reflexes : normal Knee Jerk , normal ankle Jerk lumber facet Loading Test =positive Right , positive Left Range of motion of the lumbar spine Flexion 30 degrees, extension 10 degrees strait leg raising test = positive at 30 degree on the right side Fabere test= positive Right . 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 Chemotherapy-induced neuropathy Breast cancer status post surgical lumpectomy and chemotherapy chronic and current use of high-risk medication (opioids) Patient denies any side effects of the current pain medication and the current treatment/medication helping the patient to do activity of daily living , Diagnoses, prognosis, treatment options, including but not limited to physical therapy, medication management, interventional therapies, and surgery, were discussed with the patient All the questions answered The narcotic consent was signed and patient agreed and understood the side effects and complications of opioid treatment. Patient signed the narcotic agreement, and was orally counseled, not to overuse, not to abuse, not to Divert , not tp sell pain medication, and to take it as prescribed only, Patient was counseled not to drive or operate heavy equipment while using narcotic medication, and advised not to use alcohol or any Illicit drugs while using the narcotis. understanding that lack of compliance with any of the above instructions, will likely to cause discharge from, the pain service, not to renew his narcotic prescriptions MAPS Reviewed and it was appropriate . Medication managements= patient will be given prescription refills for Neuron tin 300 mg twice a dispense 60 with 1 refill, [place] 10/325 every 8 hours dispense 90 with 1 refill Motrin 600 mg every 8 hours when necessary dispense 90 with 1 refill. I encouraged her to rotate between heat and ice for her new onset donald pain and will continue to monitor that. Follow-up in the pain clinic in 2 months , I have spent 24 minutes on patient care today. The time was used to review the medical records including relevant urine studies and prescription history, review of the available imaging, evaluation and examination of the patient, coordination of care with the medical staff and if applicable referring physicians, as well as creation of the medical record. PQRS Measure Charge Sheet Measure #130: Documentation of Current Meds in Medical Chart: Patient's medications documented in chart Measure #226: Tobacco Use: Screen & Cessation Intervention: Pt not a tobacco user Measure #111: Pneumonia Vaccination: Pneumococcal vaccine NOT administered or previously given Measure #47: Advance Care Plan: Advance care planning discussed & documented, pt chose/unable to give Measure #412: Opioid Treatment Agreement: Documented signed opioid trtmnt agreemnt min once during opioid trtmnt Measure #408: Opioid Therapy Follow-up Evaluation: Patient had f/u eval minimum every 3 months during opioid therapy Measure #317: Preventitive Care & Scrn High Bld Press & F/U: Normal blood pressure, f/u not required Measure #128: Body Mass Index (BMI) Screening & Follow-up: BMI documented ABOVE normal parameters - f/u documented Measure #131: Pain Assessment & Follow-up: Pain positive & plan documented, Follow-up scheduled Measure #431: Unhealthy Alcohol Use Preventative Care & Scrn: Patient not identified as an unhealthy alcohol user PQRS Narrative: PQRS Measure Charge Sheet PQRS Narrative: Smoking Status Never smoker Narcotic Agreement Date Signed 04/29/20 Hx Alcohol Use (MH) Yes: social Home Medications: Ambulatory Orders Venlafaxine HCl [Effexor] 150 mg PO HS 12/18/18 Topiramate [Topamax] 75 mg PO HS 12/10/19 Anastrozole [Arimidex] 1 mg PO HS 04/08/20 Multivitamin [Multivitamins Adult Gummies] 2 each PO DAILY 04/26/21 Exemestane [Aromasin] 25 mg PO DAILY 04/28/21 Ibuprofen [Motrin] 600 mg PO Q8HR PRN #90 tab 04/28/21 Gabapentin [Neurontin] 300 mg PO BID 30 Days #60 cap 06/23/21 HYDROcodone/APAP 10-325MG [[place] 10-325] 1 tab PO Q8HR PRN 30 Days #90 tab 06/23/21 HYDROcodone/APAP 10-325MG [[place] 10-325] 1 tab PO Q8HR PRN 30 Days #90 tab 06/23/21 Controlled Substance Measures - Controlled Substance Measures Is patient prescribed a controlled substance at discharge?: Yes When asked, does pt state using other controlled substances?: No If prescribed controlled substance>3 days was MAPS reviewed?: Yes If Rx opioid, was Start Talking consent form obtained?: Yes If opioid is for acute pain is fill amount 7 days or less?: No Was information provided regarding opioid addiction?: No
[2021-06-23 08:19] VITALS: BP 108/71; PULSE 91; RESP 18; TEMP 98.3
== END ==
LOC: PNWHC3 07:41
PROVIDERS: ATTEND Anesthesiology
DX: M47.26 Other spondylosis with radiculopathy, lumbar region (principal); M48.061 Spinal stenosis, lumbar region without neurogenic claudication; M96.1 Postlaminectomy syndrome, not elsewhere classified; G62.9 Polyneuropathy, unspecified; C50.919 Malignant neoplasm of unspecified site of unspecified female breast; Z79.891 Long term (current) use of opiate analgesic; Z92.3 Personal history of irradiation; Z98.890 Other specified postprocedural states; Z88.8 Allergy status to other drugs, medicaments and biological substances; Z91.09 Other allergy status, other than to drugs and biological substances
CPT/HCPCS: 80307; 99212; G0482

== ENCOUNTER → 2021-08-18 | Outpatient (CLI) | payer OTHER ==
[2021-08-18 08:45] VITALS: BP 107/75; PULSE 98; RESP 18; TEMP 98
--- NOTE | 2021-08-18 08:52 | P.PN ---
Subjective Progress Note Date: 08/18/21 This is Follow up visit for this is 60 y/o female . she has a history of Low back pain, neck pain. She has been managed with a combination of interventional pain procedures and medications. also she has a diagnosis of breast cancer. She underwent surgery and chemo therapy. In the past we had done transforaminal epidural steroid injection helped significantly for a couple months.january 2019 we have done RFA of the medial branch Cervical area . She continues to use [place] 10/325 3 times a day when necessary. And Neurontin 300 mg twice a day She denies side effects from medications, medications are helping her function. 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 Physical Examinations : -Constitutiona : Cooperative , not in acute distress . -HEENT : nech : supple , no Lymphadenopathy , normal thyroid size . : eyes : no ptosis , no icterus, no photophobia . - neurologic : Cranial nerve II to XII intact , no focal neurological deffecit . -psychatric : alert , oriented X 3 , appropriate affect , intact judgment and insight . -Lymphatic : no Lymphadenopathy . - musculoskeltal : upper extremiteies = she had normal motor strength that she is complaining of severe numbness and tingling sensation Lumber spine moter stegnth lower extremities ,thigh and legs 5/5 Right side , 5/5 Left side deep tendon reflexes : normal Knee Jerk , normal ankle Jerk lumber facet Loading Test =positive Right , positive Left Range of motion of the lumbar spine Flexion 30 degrees, extension 10 degrees strait leg raising test = positive at 30 degree on the right side Fabere test= positive Right . Assessment and plan= Lumbar radiculopathy, lumbar foraminal stenosis, failed back surgery syndrome and lumbar area Cervical spondylosis with Cervical facet arthropathy without myelopathy Chemotherapy-induced neuropathy Breast cancer status post surgical lumpectomy and chemotherapy chronic and current use of high-risk medication (opioids) Patient denies any side effects of the current pain medication and the current treatment/medication helping the patient to do activity of daily living , Diagnoses, prognosis, treatment options, including but not limited to physical therapy, medication management, interventional therapies, and surgery, were discussed with the patient All the questions answered The narcotic consent was signed and patient agreed and understood the side effects and complications of opioid treatment. Patient signed the narcotic agreement, and was orally counseled, not to overuse, not to abuse, not to Divert , not tp sell pain medication, and to take it as prescribed only, Patient was counseled not to drive or operate heavy equipment while using narcotic medication, and advised not to use alcohol or any Illicit drugs while using the narcotis. understanding that lack of compliance with any of the above instructions, will likely to cause discharge from, the pain service, not to renew his narcotic prescriptions MAPS Reviwed and it was apropriate . Medication managements= patient will be given prescription refills for Neurontin 300 mg twice a dispense 60 with 1 refill, [place] 10/325 every 8 hours dispense 90 with 1 refill Motrin 600 mg every 8 hours when necessary dispense 90 with 1 refill Follow-up in the pain clinic in 2 months UDS ordered Today , Time with Patient: Less than 30 PQRS Measure Charge Sheet Measure #130: Documentation of Current Meds in Medical Chart: Patient's medications documented in chart Measure #226: Tobacco Use: Screen & Cessation Intervention: Pt not a tobacco user Measure #111: Pneumonia Vaccination: Pneumococcal vaccine NOT administered or previously given Measure #47: Advance Care Plan: Advance care planning discussed & documented, pt chose/unable to give Measure #412: Opioid Treatment Agreement: Documented signed opioid trtmnt agreemnt min once during opioid trtmnt Measure #408: Opioid Therapy Follow-up Evaluation: Patient had f/u eval minimum every 3 months during opioid therapy Measure #317: Preventitive Care & Scrn High Bld Press & F/U: Normal blood pressure, f/u not required Measure #128: Body Mass Index (BMI) Screening & Follow-up: BMI documented ABOVE normal parameters - f/u documented Measure #131: Pain Assessment & Follow-up: Pain positive & plan documented, Follow-up scheduled Measure #431: Unhealthy Alcohol Use Preventative Care & Scrn: Patient not identified as an unhealthy alcohol user PQRS Narrative: Objective - Vital Signs Vital signs: Vital Signs Temp 98 F 08/18/21 08:41 Pulse 98 10/20/21 08:41 Resp 18 08/18/21 08:41 BP 107/75 08/18/21 08:41 Pulse Ox
== END ==
LOC: PNWHC3 08:15
PROVIDERS: ATTEND Specialist
DX: M54.16 Radiculopathy, lumbar region (principal); M48.061 Spinal stenosis, lumbar region without neurogenic claudication; M47.812 Spondylosis without myelopathy or radiculopathy, cervical region; M96.1 Postlaminectomy syndrome, not elsewhere classified; G62.0 Drug-induced polyneuropathy; C50.919 Malignant neoplasm of unspecified site of unspecified female breast; Z98.890 Other specified postprocedural states; Z79.891 Long term (current) use of opiate analgesic; Z88.5 Allergy status to narcotic agent; Z88.8 Allergy status to other drugs, medicaments and biological substances
CPT/HCPCS: 80307; 99212; G0482

== ENCOUNTER → 2021-10-13 | Outpatient (CLI) | payer OTHER ==
[2021-10-13 08:55] VITALS: BP 119/76; PULSE 95; RESP 18; TEMP 98.2
--- NOTE | 2021-10-13 09:59 | P.PAINPG ---
Subjective Progress Note Date: 10/13/21 Principal diagnosis: Lumbar back pain Mrs. Faith is a is 60-year-old pleasant female came to the [facility] pain clinic for prescription refill. He Patient has ongoing pain for many years. Patient also had peripheral neuropathy secondary to breast cancer treatment. Patient had lumbar back surgery secondary to scoliosis. Patient describes pain is aching, throbbing, constant type of pain. Lumbar back pain is not radiating to her lower extremities. Patient rated pain levels are 6-7 out of 10 in severity. With the help of medications pain levels are 4-5 out of 10 in severity. Activities making pain worse. Medications, resting, interven tional procedures, exercise helping in relieving patient's pain. Patient pain some days better than others. Overall activities decreased secondary to pain. Because of the pain sometimes patient is feeling lack of sleep, interest, and energy. Denied any side effects with the medications. Denied any bowel or bladder problems at this time. Patient denies any suicidal or homicidal ideations intent or plan. Patient denies any auditory or visual hallucinations. Patient denied any red flag symptoms related to pain. 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 Sensation grossly intact Lower extremity: Normal strength, and decreased range of motion secondary to pain Lumbar spine: Paravertebral tenderness: positive, healed scar in the lumbar area, and thoracic area Lumbar facet load test : positive Sacroiliac joint tenderness: Positive Thigh thrust test: Positive SI joint compression test: Positive Fabere test: Positive - Constitutional Constitutional Comment(s): 13 point review of symptoms negative except as mentioned in history of present illness Assessment and Plan Assessment: Chronic Lumbar back pain Status post lumbar, and thoracic spine surgery secondary to scoliosis Myofascial pain syndrome, and chronic pain syndrome Chemotherapy-induced neuropathy secondary to breast cancer treatment Plan: 1 Opioid, and psychological risk tools, and scores were reviewed. Diagnoses, prognosis, and multiple treatment options including but not limited to physical therapy, interventional therapy, adjunct medication therapy, narcotic medication, and surgical options were discussed with the patient. And all questions were answered to the patient's satisfaction. #2 Opioid agreement: Patient was thoroughly discussed regarding the medication side effects, complications associated with narcotic use. Patient recommended do not drive while on narcotic medications, any other sedative medications, and illicit drugs including marijuana. Patient clearly understood. Patient has signed narcotic agreement and was again asked to re-read this document and will be given a copy to take home if requested. This document outlines the policies of the [facility]. It specifically counsels the patient to not misuse, overuse, abuse, divert, or sell medications, and to take them as prescribed by only one healthcare provider and store the medications in a safe and preferably locked location. This document also counsels against driving while using narcotic medications and also against using any alcohol or illicit or recreational drugs in conjunction with opioids. The p atient verbalized understanding to staff that lack of compliance with any of the above will likely result in failure to renew narcotic prescriptions, possible discharge from the clinic, and possible legal ramifications thereafter. #3 Patient was counseled on importance of regular exercise. Including alejo chi, aerobic exercises as tolerated. Which helps for chronic pain, and overall well- being. #4 consultation: None #5 investigations: MAPS , urine drug test- reviewed #6 interventional procedures: Patient refused #7 medications #1 [place] 10/325 by mouth every 8 hours dispense 90 with no refill #2 Neurontin 300 mg by mouth every 12 hours dispense 60 with no refill #3 naloxone 4 mg intranasal for respiratory depression as needed dispense #2, and patient educated how to use it by a family member if needed Medication side effects, complications, long-term consequences discussed with the patient. Patient recommended to contact the pain clinic if noticed any issues with given medications. #8 morphine milligrams equivalents dose ( MME) per day: 30. #9 TENS unit's, and percussion massage device #10 disposition scheduled to follow up with pain clinic for 7 weeks . . Time with Patient: Less than 30 PQRS Measure Charge Sheet Measure #130: Documentation of Current Meds in Medical Chart: Patient's medications documented in chart Measure #226: Tobacco Use: Screen & Cessation Intervention: Pt not a tobacco user Measure #111: Pneumonia Vaccination: Pneumococcal vaccine NOT administered or previously given Measure #47: Advance Care Plan: Advance care planning discussed & documented, pt chose/unable to give Measure #412: Opioid Treatment Agreement: Documented signed opioid trtmnt agreemnt min once during opioid trtmnt Measure #408: Opioid Therapy Follow-up Evaluation: Patient had f/u eval minimum every 3 months during opioid therapy Measure #317: Preventitive Care & Scrn High Bld Press & F/U: Normal blood pressure, f/u not required Measure #128: Body Mass Index (BMI) Screening & Follow-up: BMI documented within normal parameters Measure #131: Pain Assessment & Follow-up: Pain positive & plan documented Measure #431: Unhealthy Alcohol Use Preventative Care & Scrn: Patient not identified as an unhealthy alcohol user Mode of Arrival: Ambulatory - Pain Location Lower Back Pharmacological Interventions: Medication, PRN Medication PQRS Narrative: Smoking Status Never smoker Narcotic Agreement Date Signed 04/28/21 Blood Pressure 119/76 Pain Intensity [Lower Back] 7 Scale Used Numeric (1 - 10) Hx Alcohol Use (MH) Yes: social Home Medications: Ambulatory Orders Venlafaxine HCl [Effexor] 150 mg PO HS 12/18/18 Topiramate [Topamax] 75 mg PO HS 12/10/19 Anastrozole [Arimidex] 1 mg PO HS 04/08/20 Multivitamin [Multivitamins Adult Gummies] 2 each PO DAILY 04/26/21 Exemestane [Aromasin] 25 mg PO DAILY 04/28/21 Gabapentin [Neurontin] 300 mg PO BID 30 Days #60 cap 08/18/21 HYDROcodone/APAP 10-325MG [[place] 10-325] 1 tab PO Q8HR PRN 30 Days #90 tab 08/18/21 HYDROcodone/APAP 10-325MG [[place] 10-325] 1 tab PO Q8HR PRN 30 Days #90 tab 08/18/21 Ibuprofen [Motrin] 600 mg PO Q8HR PRN #90 tab 08/18/21 Controlled Substance Measures - Controlled Substance Measures Is patient prescribed a controlled substance at discharge?: Yes When asked, does pt state using other controlled substances?: No If prescribed controlled substance>3 days was MAPS reviewed?: Yes If Rx opioid, was Start Talking consent form obtained?: Yes If opioid is for acute pain is fill amount 7 days or less?: No Was information provided regarding opioid addiction?: Yes
== END ==
LOC: PNWHC3 08:16
DX: M54.50 Low back pain, unspecified (principal); M41.9 Scoliosis, unspecified; M79.18 Myalgia, other site; C50.919 Malignant neoplasm of unspecified site of unspecified female breast; G62.0 Drug-induced polyneuropathy; G89.4 Chronic pain syndrome; Z98.890 Other specified postprocedural states; Z88.8 Allergy status to other drugs, medicaments and biological substances
CPT/HCPCS: 99211

== ENCOUNTER → 2021-12-01 | Outpatient (CLI) | payer OTHER ==
[2021-12-01 08:41] VITALS: BP 128/78; PULSE 110; RESP 18; TEMP 97.6
--- NOTE | 2021-12-01 08:54 | P.PN ---
Subjective Progress Note Date: 12/01/21 Principal diagnosis: A 60 yr old female with a history of severe and chronic neck and low back pain secondary to cervical & lumbar degenerative disc diseases and facet arthropathy presents today for medication refills. Pain level axis and wanes throughout the day but is generally 5 out of 10 in intensity, dull/ achy in the neck and lumbar region with occasional sharp/ shooting pain towards the bilateral hips. Pain is provoked by sedentary position lifting and bending. Pain is alleviated with medications topical injections ice heat chiropractic treatments rest and a home-based exercise regimen. Interventional pain procedures completed include RFA Patient is currently on [place] 10/325mg TID prn #90 and Gabapentin 300mg BID Patient denies any side effects of the medication(s), denies excessive drowsiness or sleepiness, denies suicidal ideation and reports that the current pain medication is helping to control the pain and improve activities of daily living. Patient denies any motor or sensory deficits. Patient denies any fever or night sweats, denies any change in the bowel movements or urination. Physical Examination: -Constitutional: Cooperative. Not in acute distress . -HEENT: Neck is supple. No lymphadenopathy. No thyromegaly. Normal thyroid size. Eyes: No ptosis , no icterus, no photophobia. ENT: No auditory deficits. Normal oropharynx. No Thrush. - Respiratory: Chest clear to auscultations bilaterally. No wheezing. No rhonchi. - Cardiovascular: Regular rate and rhythm. S1 / S2 , no S3 , no S4. - Gastrointestinal: Abdomen soft no tenderness. Bowel sounds positive in all four quadrants. No organomegaly. - Genitourinary: Deferred. - Neurologic: Cranial nerve II to XII intact. No focal neurological deficits. - Psychatric: Alert & oriented x 3. Matching mood & appropriate affect. Judgment and insight intact. - Lymphatic: No Lymphadenopathy. - Musculoskeletal: Cervical spine: Muscle bulk/ tone/ strength in the bilateral upper extremities normal. Spurling test positive Distraction test positive Facet loading test cervical area positive over C5-C7 bilaterally Lumbar spine: Motor bulk/ tone/ strength lower extremities , thigh and legs : 5/5 Deep tendon reflexes : Normal Knee Jerk. Normal Ankle Jerk . Vertebral body tenderness to palpation over L3-L5 Lumbar Facet Loading Test positive Moderate paraspinal spasms over L4-L5 bilaterally Straight Leg Raise: positive at 30 degree right side/ left side Deanna test: positive right side / left side Range of motion: Flexion of the lumbar spine <90 degrees Range of motion: Extension of the lumbar spine <20 degrees Severe tenderness over the Sacroiliac joint: right side / left side Assessment and plan: Chronic low back pain secondary to lumbar degenerative disc disease , lumbar spondylosis with facet arthropathy without myelopathy UDS reviewed and was consistent Opioid agreement up to date Chronic and current use of high-risk medication (Opioids). The patient was counseled about risk of opioid use, psychological risk associated with opioids and was orally counseled to not overuse , divert or sell medications. Pt is to store medication in a safe location. The patient is counseled against driving while using narcotic medications and also not to use alcohol or any illicit recreational drugs. Patient verbalized understanding that the lack of compliance will result in failure to renew narcotic prescription(s) as well as possible discharge from the clinic Diagnoses, prognosis and treatment options including but not limited to physical therapy, surgical interventions, interventional therapies and medication management including narcotics and adjuvant medication were discussed. All patient questions answered MAPS reviewed and it was appropriate. Prescription refill for [place] 10/325mg TID prn #90 with refill, Gabapentin 300mg BID #60 with refill I have spent 31 minutes on patient care today. Dr Figueroa was available by phone for the evaluation of this patient. The time was used to review the medical records including relevant urine studies and Prescription history (MAPs), review of the available imaging, evaluation and examination of the patient, coordination of care with the medical staff and if applicable referring physicians, as well as creation of the medical record Objective - Vital Signs Vital signs: Vital Signs Temp 97.6 F 12/01/21 08:34 Pulse 110 H 12/01/21 08:34 Resp 18 12/01/21 08:34 BP 128/78 12/01/21 08:34 Pulse Ox 96 12/01/21 08:34 Intake & Output 11/30/21 12/01/21 12/01/21 18:59 06:59 18:59 Weight 95.708 kg PQRS Measure Charge Sheet Mode of Arrival: Ambulatory - Pain Location Generalized Non-Pharmacological Interventions: Chiropractic Treatment, Heat, Home Exercise, Ice, Inactivity, Position/Reposition Pharmacological Interventions: Block, Epidural, Medication, PRN Medication, Topical Medication PQRS Narrative: Smoking Status Never smoker Narcotic Agreement Date Signed 04/28/21 Blood Pressure 128/78 Pain Intensity [Generalized] 7 Scale Used Numeric (1 - 10) Hx Alcohol Use (MH) Yes: social Home Medications: Ambulatory Orders Venlafaxine HCl [Effexor] 150 mg PO HS 12/18/18 Topiramate [Topamax] 75 mg PO HS 12/10/19 Anastrozole [Arimidex] 1 mg PO HS 04/08/20 Multivitamin [Multivitamins Adult Gummies] 2 each PO DAILY 04/26/21 Exemestane [Aromasin] 25 mg PO DAILY 04/28/21 HYDROcodone/APAP 10-325MG [[place] 10-325] 1 tab PO Q8HR PRN 30 Days #90 tab 08/18/21 Ibuprofen [Motrin] 600 mg PO Q8HR PRN #90 tab 08/18/21 Gabapentin [Neurontin] 300 mg PO BID 30 Days #60 cap 12/01/21 HYDROcodone/APAP 10-325MG [[place] 10-325] 1 tab PO Q8HR PRN 30 Days #90 tab 12/01/21 HYDROcodone/APAP 10-325MG [[place] 10-325] 1 tab PO Q8HR PRN 30 Days #90 tab 12/01/21
== END ==
LOC: PNWHC3 08:23
PROVIDERS: ATTEND Physician Assistant Medical
DX: G89.29 Other chronic pain (principal); M51.36 Other intervertebral disc degeneration, lumbar region; M47.816 Spondylosis without myelopathy or radiculopathy, lumbar region; Z79.891 Long term (current) use of opiate analgesic; Z88.8 Allergy status to other drugs, medicaments and biological substances; Z91.09 Other allergy status, other than to drugs and biological substances
CPT/HCPCS: 99211

== ENCOUNTER → 2022-01-26 | Outpatient (CLI) | payer OTHER ==
[2022-01-26 09:05] VITALS: BP 118/59; PULSE 86; RESP 18; TEMP 98
--- NOTE | 2022-01-26 09:12 | P.PN ---
Subjective Progress Note Date: 01/26/22 Principal diagnosis: A 61 yr old female with a history of severe and chronic joint pain secondary to Lumbar DDD presents today for medication refills. Pain level is 5 out of 10 in intensity, achy, throbbing pain that escalates as high as 8 out of 10 with bending, lifting or twisting. 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 Interventional pain procedures completed include R TFESI L4-5, R Trochanteric injection Patient is currently on [place] 10/325mg #90, Neurontin 300mg #60 and Motrin 800mg #60 Patient denies any side effects of the medication(s), denies excessive drowsiness or sleepiness, denies suicidal ideation and reports that the current pain medication is helping to control the pain and improve activities of daily living. Patient denies any motor or sensory deficits. Patient denies any fever or night sweats, denies any change in the bowel movements or urination. Physical Examination: -Constitutional: Cooperative. Not in acute distress . -HEENT: Neck is supple. No lymphadenopathy. No thyromegaly. Normal thyroid size. Eyes: No ptosis , no icterus, no photophobia. ENT: No auditory deficits. Normal oropharynx. No Thrush. - Respiratory: Chest clear to auscultations bilaterally. No wheezing. No rhonchi. - Cardiovascular: Regular rate and rhythm. S1 / S2 , no S3 , no S4. - Gastrointestinal: Abdomen soft no tenderness. Bowel sounds positive in all four quadrants. No organomegaly. - Genitourinary: Deferred. - Neurologic: Cranial nerve II to XII intact. No focal neurological deficits. - Psychatric: Alert & oriented x 3. Matching mood & appropriate affect. Judgment and insight intact. - Lymphatic: No Lymphadenopathy. - Musculoskeletal: Cervical spine: Muscle bulk/ tone/ strength in the bilateral upper extremities normal. Facet loading test cervical area positive. Lumbar spine: Motor bulk/ tone/ strength lower extremities , thigh and legs : 5/5 Deep tendon reflexes : Normal Knee Jerk. Normal Ankle Jerk . Vertebral body tenderness to palpation over L3, L4, L5 Lumbar Facet Loading Test positive Straight Leg Raise: positive at 30 degrees right side/ left side Gaenslen's Test positive Sacral spine : Severe tenderness over the Sacroiliac joint: right side / left side Range of motion: Flexion of the lumbar spine <60 degrees Range of motion: Extension of the lumbar spine <20 degrees Gaenslen's Test positive Deanna test: positive right side / left side Assessment and plan: Chronic joint pain secondary to lumbar DDD without myelopathy Chronic and current use of high-risk medication (Opioids). The patient was counseled about risk of opioid use, psychological risk associated with opioids and was orally counseled to not overuse , divert or sell medications. Pt is to store medication in a safe location. The patient is counseled against driving while using narcotic medications and also not to use alcohol or any illicit recreational drugs. Patient verbalized understanding that the lack of compliance will result in failure to renew narcotic prescription(s) as well as possible discharge from the clinic Diagnoses, prognosis and treatment options including but not limited to physical therapy, surgical interventions, interventional therapies and medication management including narcotics and adjuvant medication were discussed. All patient questions answered MAPS reviewed and it was appropriate. Prescription refill for [place] 10/325mg #90, Neurontin 300mg #60 and Motrin 800mg #60 w refill I have spent 31 minutes on patient care today. Dr Figueroa was available by phone for the evaluation of this patient. The time was used to review the medical records including relevant urine studies and Prescription history (MAPs), review of the available imaging, evaluation and examination of the patient, coordination of care with the medical staff and if applicable referring physicians, as well as creation of the medical record Objective - Vital Signs Vital signs: Vital Signs Temp 98 F 01/26/22 09:02 Pulse 86 01/26/22 09:02 Resp 18 01/26/22 09:02 BP 118/59 01/26/22 09:02 Pulse Ox 97 01/26/22 09:02 Intake & Output 01/25/22 01/26/22 01/26/22 18:59 06:59 18:59 Weight 99.79 kg PQRS Measure Charge Sheet Mode of Arrival: Ambulatory - Pain Location Generalized Non-Pharmacological Interventions: Heat, Home Exercise, Inactivity, Position/Reposition, Stretching Pharmacological Interventions: PRN Medication, Scheduled Medication, Topical Medication PQRS Narrative: Smoking Status Never smoker Narcotic Agreement Date Signed 04/28/21 Blood Pressure 118/59 Pain Intensity [Generalized] 5 Scale Used Numeric (1 - 10) Hx Alcohol Use (MH) Yes: social Home Medications: Ambulatory Orders Venlafaxine HCl [Effexor] 150 mg PO HS 12/18/18 Topiramate [Topamax] 75 mg PO HS 12/10/19 Anastrozole [Arimidex] 1 mg PO HS 04/08/20 Multivitamin [Multivitamins Adult Gummies] 2 each PO DAILY 04/26/21 Exemestane [Aromasin] 25 mg PO DAILY 04/28/21 HYDROcodone/APAP 10-325MG [[place] 10-325] 1 tab PO Q8HR PRN 30 Days #90 tab 08/18/21 Gabapentin [Neurontin] 300 mg PO BID 30 Days #60 cap 01/26/22 HYDROcodone/APAP 10-325MG [[place] 10-325] 1 tab PO Q8HR PRN 30 Days #90 tab 01/26/22 HYDROcodone/APAP 10-325MG [[place] 10-325] 1 tab PO Q8HR PRN 30 Days #90 tab 01/26/22 Ibuprofen [Motrin] 600 mg PO Q8HR PRN 30 Days #90 tab 01/26/22
== END ==
LOC: PNWHC3 08:02
PROVIDERS: ATTEND Specialist
DX: M51.36 Other intervertebral disc degeneration, lumbar region (principal); Z79.891 Long term (current) use of opiate analgesic; G89.29 Other chronic pain; Z88.8 Allergy status to other drugs, medicaments and biological substances
CPT/HCPCS: 99211

== ENCOUNTER → 2022-02-09 | Outpatient (CLI) | payer OTHER ==
--- NOTE | 2022-02-09 10:29 | MM ---
Reason for exam: additional evaluation requested from prior study. Last mammogram was performed 1 year and 1 month ago. History: Patient is postmenopausal and has history of breast cancer at age 59. Malignant MG pre op needle loc LT of the left breast, April 10, 2020. Lumpectomy of the left breast, April 10, 2020. Malignant US biopsy breast VAD LT of the left breast, January 21, 2020. Taking estrogen for 2 years. Taking antineoplastic for 2 years beginning at age 59. Physical Findings: A clinical breast exam by your physician is recommended on an annual basis and results should be correlated with mammographic findings. MG Diagnostic Mammo w CAD FLORY Bilateral CC, MLO, and XCCL view(s) were taken. Prior study comparison: January 20, 2021, bilateral MG diagnostic mammo w CAD FLORY. January 21, 2020, left breast MG diagnostic mammo LT wo CAD. The breast tissue is heterogeneously dense. This may lower the sensitivity of mammography. Post surgical changes. No significant new findings when compared with previous films. Results were given to the patient verbally at the time of the exam. ASSESSMENT: Benign, BI-RAD 2 RECOMMENDATION: Follow-up diagnostic mammogram of both breasts in 1 year.
== END | disposition home or self-care (01) ==
LOC: RADMAMWWP 06:57
PROVIDERS: ATTEND Internal Medicine Hematology & Oncology
DX: R92.8 Other abnormal and inconclusive findings on diagnostic imaging of breast (principal); Z85.3 Personal history of malignant neoplasm of breast; Z78.0 Asymptomatic menopausal state
CPT/HCPCS: 77066

== ENCOUNTER → 2022-03-23 | Outpatient (CLI) | payer OTHER ==
--- NOTE | 2022-03-23 08:26 | P.PN ---
Subjective Progress Note Date: 03/23/22 Principal diagnosis: A 61 yr old female with a history of severe and chronic low back pain secondary to lumbar degenerative disc diseases and lumbar spondylosis with facet arthropathy presents today for medication refills. Pain level is currently at 7/10 in intensity, dull, achy in the lower aspects of the lumbar spine with radiation of tight, stiff shooting pain towards the lower extremities. Pain is provoked by twisting, bending and lifting. Pain is alleviated with medications, heat and ice, topicals, repositioning and rest. Interventional pain procedures completed include L Cervical RFA, C2-C3 & 3rd O.N. Patient is currently on [place] and Neurontin Patient denies any side effects of the medication(s), denies excessive drowsiness or sleepiness, denies suicidal ideation and reports that the current pain medication is helping to control the pain and improve activities of daily living. Patient denies any motor or sensory deficits. Patient denies any fever or night sweats, denies any change in the bowel movements or urination. Physical Examination: -Constitutional: Cooperative. Not in acute distress . -HEENT: Neck is supple. No lymphadenopathy. No thyromegaly. Normal thyroid size. Eyes: No ptosis , no icterus, no photophobia. ENT: No auditory deficits. Normal oropharynx. No Thrush. - Respiratory: Chest clear to auscultations bilaterally. No wheezing. No rhonchi. - Cardiovascular: Regular rate and rhythm. S1 / S2 , no S3 , no S4. - Gastrointestinal: Abdomen soft no tenderness. Bowel sounds positive in all four quadrants. No organomegaly. - Genitourinary: Deferred. - Neurologic: Cranial nerve II to XII intact. No focal neurological deficits. - Psychatric: Alert & oriented x 3. Matching mood & appropriate affect. Judgment and insight intact. - Lymphatic: No Lymphadenopathy. - Musculoskeletal: Cervical spine: Muscle bulk/ tone/ strength in the bilateral upper extremities normal Vertebral body tenderness to palpation over Facet loading test positive Thoracic spine Muscle bulk / tone/ strength in the bilateral paraspinal muscles normal Vertebral body tender to palpation over Facet loading test positive Lumbar spine: Motor bulk/ tone/ strength lower extremities , thigh and legs : 5/5 Deep tendon reflexes : Normal Knee Jerk. Normal Ankle Jerk . Vertebral body tenderness to palpation over L3, L4, L5 Lumbar Facet Loading Test positive Straight Leg Raise: positive at 30 degrees right side/ left side Gaenslen's Test positive Sacral spine : Severe tenderness over the Sacroiliac joint: right side / left side Range of motion: Flexion of the lumbar spine <60 degrees Range of motion: Extension of the lumbar spine <20 degrees Gaenslen's Test positive Cm's Test positive Deanna test: positive right side / left side Thigh Thrust Test Sacral Thrust Test Assessment and plan: Chronic low back pain secondary to lumbar degenerative disc disease , lumbar spondylosis with facet arthropathy without myelopathy Risks, benefits of procedure discussed and pt verbalized understanding. Denies anticoagulant use or medical history of diabetes. UDS collected today 03/23/22 Chronic and current use of high-risk medication (Opioids). The patient was counseled about risk of opioid use, psychological risk associated with opioids and was orally counseled to not overuse , divert or sell medications. Pt is to store medication in a safe location. The patient is counseled against driving while using narcotic medications and also not to use alcohol or any illicit recreational drugs. Patient verbalized understanding that the lack of compliance will result in failure to renew narcotic prescription(s) as well as possible discharge from the clinic Diagnoses, prognosis and treatment options including but not limited to physical therapy, surgical interventions, interventional therapies and medication management including narcotics and adjuvant medication were discussed. All patient questions answered MAPS reviewed and it was appropriate. Prescription refill for [place], Neurontin w refill. I have spent 31 minutes on patient care today. Dr Figueroa was available by phone for the evaluation of this patient. The time was used to review the medical records including relevant urine studies and Prescription history (MAPs), review of the available imaging, evaluation and examination of the patient, coordination of care with the medical staff and if applicable referring physicians, as well as creation of the medical record PQRS Measure Charge Sheet PQRS Narrative: Smoking Status Never smoker Narcotic Agreement Date Signed 04/28/21 Hx Alcohol Use (MH) Yes: social Home Medications: Ambulatory Orders Venlafaxine HCl [Effexor] 150 mg PO HS 12/18/18 Topiramate [Topamax] 75 mg PO HS 12/10/19 Anastrozole [Arimidex] 1 mg PO HS 04/08/20 Multivitamin [Multivitamins Adult Gummies] 2 each PO DAILY 04/26/21 Exemestane [Aromasin] 25 mg PO DAILY 04/28/21 Gabapentin [Neurontin] 300 mg PO BID 30 Days #60 cap 01/26/22 Gabapentin [Neurontin] 300 mg PO BID 30 Days #60 cap 01/26/22 HYDROcodone/APAP 10-325MG [[place] 10-325] 1 tab PO Q8HR PRN 30 Days #90 tab 01/26/22 HYDROcodone/APAP 10-325MG [[place] 10-325] 1 tab PO Q8HR PRN 30 Days #90 tab 01/26/22 HYDROcodone/APAP 10-325MG [[place] 10-325] 1 tab PO Q8HR PRN 30 Days #90 tab 01/26/22 HYDROcodone/APAP 10-325MG [[place] 10-325] 1 tab PO Q8HR PRN 30 Days #90 tab 01/26/22 Ibuprofen [Motrin] 600 mg PO Q8HR PRN 30 Days #90 tab 01/26/22
[2022-03-23 08:41] VITALS: BP 121/74; PULSE 82; RESP 18; TEMP 98.1
== END ==
LOC: PNWHC3 07:55
PROVIDERS: ATTEND Specialist
DX: M51.36 Other intervertebral disc degeneration, lumbar region (principal); M47.816 Spondylosis without myelopathy or radiculopathy, lumbar region; G89.29 Other chronic pain; Z79.891 Long term (current) use of opiate analgesic; Z88.8 Allergy status to other drugs, medicaments and biological substances; Z91.09 Other allergy status, other than to drugs and biological substances
CPT/HCPCS: 80307; 99212; G0482

== ENCOUNTER → 2022-05-18 | Outpatient (CLI) | payer BC, OTHER ==
--- NOTE | 2022-05-18 08:05 | P.PAINPG ---
PQRS Measure Charge Sheet Comment: A 61 yr old female with a history of severe and chronic low back pain secondary to lumbar degenerative disc diseases and lumbar spondylosis with facet arthropathy presents today for medication refills. Pain level is 7/10 in intensity, localized mostly in her lower back, wrists and ankles, constant, dull and achy in character. Pain is provoked by weight bearing activities. Pain is alleviated with workouts at the gym, medications ([place], Neurontin), topicals, heat, repositioning and rest. Interventional pain procedures completed include [place] 10/325mg #90 , Neurontin 300mg #60 Patient is currently on [place], Neurontin Patient denies any side effects of the medication(s), denies excessive drowsiness or sleepiness, denies suicidal ideation and reports that the current pain medication is helping to control the pain and improve activities of daily living. Patient denies any motor or sensory deficits. Patient denies any fever or night sweats, denies any change in the bowel movements or urination. Physical Examination: -Constitutional: Cooperative. Not in acute distress . - Neurologic: Cranial nerve II to XII intact. No focal neurological deficits. - Psychatric: Alert & oriented x 3. Matching mood & appropriate affect. Judgment and insight intact. - Musculoskeletal: +BL Tinel Sign, +BL diffuse ankle TTP Cervical spine: Muscle bulk/ tone/ strength in the bilateral upper extremities normal Vertebral body tenderness to palpation over Spurling test positive Distraction test positive Facet loading test positive Thoracic spine Muscle bulk / tone/ strength in the bilateral paraspinal muscles normal Vertebral body tender to palpation over Facet loading test positive Lumbar spine: Motor bulk/ tone/ strength lower extremities , thigh and legs : 5/5 Deep tendon reflexes : Normal Knee Jerk. Normal Ankle Jerk . Vertebral body tenderness to palpation over L3, L4, L5 Lumbar Facet Loading Test positive Straight Leg Raise: positive at 30 degrees right side/ left side Gaenslen's Test positive Sacral spine : Severe tenderness over the Sacroiliac joint: right side / left side Range of motion: Flexion of the lumbar spine <60 degrees Range of motion: Extension of the lumbar spine <20 degrees Gaenslen's Test positive Cm's Test positive Deanna test: positive right side / left side Thigh Thrust Test Sacral Thrust Test Assessment and plan: Chronic low back pain secondary to lumbar degenerative disc disease , lumbar spondylosis with facet arthropathy without myelopathy, BL Wrist Sprains, BL Ankle Sprains Chronic and current use of high-risk medication (Opioids). The patient was counseled about risk of opioid use, psychological risk associated with opioids and was orally counseled to not overuse , divert or sell medications. Pt is to store medication in a safe location. The patient is counseled against driving while using narcotic medications and also not to use alcohol or any illicit recreational drugs. Patient verbalized understanding that the lack of compliance will result in failure to renew narcotic prescription(s) as well as possible discharge from the clinic Diagnoses, prognosis and treatment options including but not limited to physical therapy, surgical interventions, interventional therapies and medication management including narcotics and adjuvant medication were discussed. All patient questions answered MAPS reviewed and it was appropriate. UDS from 03/23/22 reviewed and consistent Prescription refill for [place] 10/325mg #90, Neurontin 300mg #60 w 1 refill I have spent less than 30 minutes on patient care today. Dr Figueroa was available by phone for the evaluation of this patient. The time was used to review the medical records including relevant urine studies and Prescription history (MAPs), review of the available imaging, evaluation and examination of the patient, coordination of care with the medical staff and if applicable referring physicians, as well as creation of the medical record PQRS Narrative: Smoking Status Never smoker Narcotic Agreement Date Signed 04/28/21 Hx Alcohol Use (MH) Yes: social Home Medications: Ambulatory Orders Venlafaxine HCl [Effexor] 150 mg PO HS 12/18/18 Topiramate [Topamax] 75 mg PO HS 12/10/19 Anastrozole [Arimidex] 1 mg PO HS 04/08/20 Multivitamin [Multivitamins Adult Gummies] 2 each PO DAILY 04/26/21 Exemestane [Aromasin] 25 mg PO DAILY 04/28/21 Gabapentin [Neurontin] 300 mg PO BID 30 Days #60 cap 01/26/22 HYDROcodone/APAP 10-325MG [[place] 10-325] 1 tab PO Q8HR PRN 30 Days #90 tab 01/26/22 HYDROcodone/APAP 10-325MG [[place] 10-325] 1 tab PO Q8HR PRN 30 Days #90 tab 01/26/22 Ibuprofen [Motrin] 600 mg PO Q8HR PRN 30 Days #90 tab 01/26/22 Gabapentin [Neurontin] 300 mg PO BID 30 Days #60 cap 03/23/22 HYDROcodone/APAP 10-325MG [[place] 10-325] 1 tab PO Q8HR PRN 30 Days #90 tab 03/23/22 HYDROcodone/APAP 10-325MG [[place] 10-325] 1 tab PO Q8HR PRN 30 Days #90 tab 03/23/22 Controlled Substance Measures - Controlled Substance Measures Is patient prescribed a controlled substance at discharge?: Yes When asked, does pt state using other controlled substances?: No If prescribed controlled substance>3 days was MAPS reviewed?: Yes If Rx opioid, was Start Talking consent form obtained?: Yes Was information provided regarding opioid addiction?: Yes
[2022-05-18 08:08] VITALS: BP 120/60; PULSE 78; RESP 18; TEMP 98.2
== END ==
LOC: PNWHC3 07:46
PROVIDERS: ATTEND Specialist
DX: M51.36 Other intervertebral disc degeneration, lumbar region (principal); M47.816 Spondylosis without myelopathy or radiculopathy, lumbar region; G89.29 Other chronic pain; Z79.891 Long term (current) use of opiate analgesic; Z88.8 Allergy status to other drugs, medicaments and biological substances; Z91.048 Other nonmedicinal substance allergy status
CPT/HCPCS: 99211

== ENCOUNTER → 2022-05-27 | Outpatient (CLI) | payer BC, OTHER ==
[2022-05-27 08:45] VITALS: BP 121/77; PULSE 86; RESP 16; TEMP 98.3
== END ==
LOC: EDSTATUS 04-29 10:15 → PROCWHC3 08:28
PROVIDERS: ATTEND Internal Medicine Hematology & Oncology
DX: M89.9 Disorder of bone, unspecified (principal); Z79.811 Long term (current) use of aromatase inhibitors; Z88.8 Allergy status to other drugs, medicaments and biological substances
CPT/HCPCS: 96365; J3489

== ENCOUNTER → 2022-07-18 | Outpatient (CLI) | payer BC ==
[2022-07-18 08:18] VITALS: BP 118/79; PULSE 97; RESP 18; TEMP 98
--- NOTE | 2022-07-18 14:48 | P.PAINPG ---
PQRS Measure Charge Sheet Comment: A 61 yr old female with a history of severe and chronic low back pain secondary to lumbar degenerative disc diseases and lumbar spondylosis with facet arthropathy without myelopathy presents today for R shoulder pain. Pain level is currently at 7/10 in intensity, constant, localized throbbing in character w sharp/ shooting towards the RUE. Pain is provoked by lifting. Pain is alleviated with heat, ice, medications, topicals, laying supine on her side, repositioning and rest. UDS from 03/23/22 reviewed and inconsistent as it is + for EDDP (Methadone metabolite). Pt's prior UDS from 12/2021 was +THC. Discharge from medication management discussed. Patient is currently on [place], Neurontin Patient denies any side effects of the medication(s), denies excessive drowsiness or sleepiness, denies suicidal ideation and reports that the current pain medication is helping to control the pain and improve activities of daily living. Patient denies any motor or sensory deficits. Patient denies any fever or night sweats, denies any change in the bowel movements or urination. Physical Examination: -Constitutional: Cooperative. Not in acute distress . - Neurologic: Cranial nerve II to XII intact. No focal neurological deficits. - Psychatric: Alert & oriented x 3. Matching mood & appropriate affect. Judg ment and insight intact. - Musculoskeletal: Cervical spine: Muscle bulk/ tone/ strength in the bilateral upper extremities normal Vertebral body tenderness to palpation over Spurling test positive Distraction test positive Facet loading test positive Thoracic spine Muscle bulk / tone/ strength in the bilateral paraspinal muscles normal Vertebral body tender to palpation over Facet loading test positive Lumbar spine: Motor bulk/ tone/ strength lower extremities , thigh and legs : 5/5 Deep tendon reflexes : Normal Knee Jerk. Normal Ankle Jerk . Vertebral body tenderness to palpation over L4, L5 Lumbar Facet Loading Test positive Straight Leg Raise: positive at 30 degrees right side/ left side Gaenslen's Test positive Sacral spine : Severe tenderness over the Sacroiliac joint: right side / left side Range of motion: Flexion of the lumbar spine <60 degrees Range of motion: Extension of the lumbar spine <20 degrees Gaenslen's Test positive Cm's Test positive Deanna test: positive right side / left side Thigh Thrust Test Sacral Thrust Test Assessment and plan: Chronic low back pain secondary to lumbar degenerative disc disease , lumbar spondylosis with facet arthropathy without myelopathy Discharged from narcotic medication management. One mo refill of [place], Neurontin and also Ibuprofen as requested. Chronic and current use of high-risk medication (Opioids). The patient was counseled about risk of opioid use, psychological risk associated with opioids and was orally counseled to not overuse , divert or sell medications. Pt is to store medication in a safe location. The patient is counseled against driving while using narcotic medications and also not to use alcohol or any illicit recreational drugs. Patient verbalized understanding that the lack of compliance will result in failure to renew narcotic prescription(s) as well as possible discharge from the clinic Diagnoses, prognosis and treatment options including but not limited to physical therapy, surgical interventions, interventional therapies and medication management including narcotics and adjuvant medication were dis cussed. All patient questions answered UDS from 03/23/22 + for EDDP, Hydrocodone, Gabapentin. Discussed abnormal results w pt. MAPS reviewed and it was appropriate. Prescription refill for [place] 10/325mg #90, Neurontin 300mg #90 NR, Ibuprofen 800mg #90. I have spent less than 30 minutes on patient care today. Dr Figueroa was available by phone for the evaluation of this patient. The time was used to review the medical records including relevant urine studies and Prescription history (MAPs), review of the available imaging, evaluation and examination of the patient, coordination of care with the medical staff and if applicable referring physicians, as well as creation of the medical record - Pain Location Right Shoulder Non-Pharmacological Interventions: Heat, Ice, Inactivity, Position/Reposition Pharmacological Interventions: Prophylactic Medication, Scheduled Medication, Topical Medication PQRS Narrative: Smoking Status Never smoker Narcotic Agreement Date Signed 05/18/22 Hx Alcohol Use (MH) Yes: social Home Medications: Ambulatory Orders Venlafaxine HCl [Effexor] 150 mg PO HS 12/18/18 Topiramate [Topamax] 75 mg PO HS 12/10/19 Anastrozole [Arimidex] 1 mg PO HS 04/08/20 Multivitamin [Multivitamins Adult Gummies] 2 each PO DAILY 04/26/21 Exemestane [Aromasin] 25 mg PO DAILY 04/28/21 Gabapentin [Neurontin] 300 mg PO BID 30 Days #60 cap 01/26/22 HYDROcodone/APAP 10-325MG [Houston 10-325] 1 tab PO Q8HR PRN 30 Days #90 tab 01/26/22 HYDROcodone/APAP 10-325MG [[place] 10-325] 1 tab PO Q8HR PRN 30 Days #90 tab 01/26/22 Ibuprofen [Motrin] 600 mg PO Q8HR PRN 30 Days #90 tab 01/26/22 Gabapentin [Neurontin] 300 mg PO BID 30 Days #60 cap 05/18/22 HYDROcodone/APAP 10-325MG [[place] 10-325] 1 tab PO Q8HR PRN 30 Days #90 tab 05/18/22 HYDROcodone/APAP 10-325MG [[place] 10-325] 1 tab PO Q8HR PRN 30 Days #90 tab 05/18/22 Controlled Substance Measures - Controlled Substance Measures Is patient prescribed a controlled substance at discharge?: Yes When asked, does pt state using other controlled substances?: Yes If prescribed controlled substance>3 days was MAPS reviewed?: Yes If Rx opioid, was Start Talking consent form obtained?: Yes Was information provided regarding opioid addiction?: Yes
== END ==
LOC: PNWHC3 07-13 08:02
PROVIDERS: ATTEND Specialist
DX: M51.36 Other intervertebral disc degeneration, lumbar region (principal); M47.816 Spondylosis without myelopathy or radiculopathy, lumbar region; G89.29 Other chronic pain; Z79.891 Long term (current) use of opiate analgesic
CPT/HCPCS: 99211

== ENCOUNTER → 2022-11-21 | Outpatient (CLI) | payer BC ==
--- NOTE | 2022-11-21 10:51 | CT ---
EXAMINATION TYPE: CT chest w con CT DLP: 378.30 mGycm, Automated exposure control for dose reduction was used. DATE OF EXAM: 11/21/2022 10:40 AM COMPARISON: Chest radiograph 03/11/2014. CLINICAL INDICATION:Female, 61 years old with history of C50.112; [facility], back pain x few months. hx of Left breast CA TECHNIQUE: Multiple axial images were obtained through the chest following the administration of 70 c c of Isovue 300. FINDINGS: LUNGS/ PLEURA: Small right pleural effusion. Patchy reticular subpleural opacities within the left up per lobe likely related to post radiation changes. No suspicious pulmonary nodule or mass. No pneumot horax. AIRWAY: Patent and unremarkable.. HEART: Size within normal limits. No pericardial effusion. MEDIASTINUM: No gross evidence of adenopathy. VASCULATURE: No aortic aneurysm. MUSCULOSKELETAL: No acute osseous abnormalities. No aggressive osseous lesion. There is close approxi mation of the adjacent spinous processes of the thoracic spine. SOFT TISSUES/LYMPH NODES: No axillary adenopathy. Surgical clips in the left axilla and left breast. LOWER NECK: No significant findings. UPPER ABDOMEN: Postcholecystectomy. Cortical scarring involving the left kidney likely from prior inj ury. IMPRESSION: 1. No CT evidence for metastasis or recurrent malignancy. 2. Small right pleural effusion with post radiation changes of the left upper lobe. 3. Findings suggestive Jerome's disease.
--- NOTE | 2022-11-21 15:07 | NM ---
EXAMINATION TYPE: NM bone scan whole body DATE OF EXAM: 11/21/2022 COMPARISON: CT chest 11/21/2022 HISTORY: Left breast cancer, upper back pain Delayed whole-body scanning was performed following the injection of 24.4 mCi Tc 99m MDP. Images acq uired 3 hours post injection. FINDINGS: There are 2 contiguous foci of focal radiotracer uptake demonstrated within the anterior right sevent h and eighth ribs at the costochondral junction. There is increased uptake within the bilateral shoulder, bilateral feet, sternoclavicular joints con sistent with degenerative changes. No other photopenic areas or areas of increased activity are ident ified. Physiologic radiotracer activity is demonstrated in the kidneys and bladder. IMPRESSION: 2 contiguous foci of focal radiotracer uptake within the anterior right seventh and eighth ribs at th e costochondral junction. No corresponding fracture or lytic or blastic lesion identified on CT. Find ings suggest costochondral junction inflammation/occult fracture. This would be an abnormal appearanc e for metastatic disease.
== END | disposition home or self-care (01) ==
LOC: RADNMMAIN 10:10
PROVIDERS: ATTEND Internal Medicine Hematology & Oncology
DX: C50.112 Malignant neoplasm of central portion of left female breast (principal); R93.7 Abnormal findings on diagnostic imaging of other parts of musculoskeletal system; R05.9 Cough, unspecified; R07.1 Chest pain on breathing; M85.9 Disorder of bone density and structure, unspecified; J90 Pleural effusion, not elsewhere classified; Z85.3 Personal history of malignant neoplasm of breast; Z92.3 Personal history of irradiation
CPT/HCPCS: 71260; 78306; A9503; Q9967

== ENCOUNTER → 2022-11-28 | Outpatient (CLI) | payer BC ==
[2022-11-28 08:40] VITALS: BP 101/69; PULSE 90; RESP 16; TEMP 97.3
== END ==
LOC: PROCWHC3 08:30
PROVIDERS: ATTEND Internal Medicine Hematology & Oncology
DX: M89.9 Disorder of bone, unspecified (principal); Z79.811 Long term (current) use of aromatase inhibitors; Z91.013 Allergy to seafood; Z88.8 Allergy status to other drugs, medicaments and biological substances
CPT/HCPCS: 96365; J3489

== ENCOUNTER → 2023-02-10 | Outpatient (CLI) | payer BC ==
--- NOTE | 2023-02-10 10:11 | MM ---
Reason for Exam: Screening (asymptomatic). Last screening mammogram was performed 12 month(s) ago. Patient History: Menarche at age 12. First Full-Term at age 24. Postmenopausal. Breast cancer, left, age 59. Estrogen for 4 years from age 55 until age 59. 04/10/2020, Lumpectomy on the Left side. 04/10/2020, Malignant Core Biopsy on the left side. 01/21/2020, Malignant Core Biopsy on the left side. 2019, Radiation Therapy on the left side. 2019, Chemotherapy. Prior Study Comparison: 01/21/2020 Left Diagnostic Mammogram, [facility]. 01/20/2021 Bilateral Diagnostic Mammogram, [facility]. 02/09/2022 Bilateral Diagnostic Mammogram, [facility]. Tissue Density: The breast tissue is heterogeneously dense. This may lower the sensitivity of mammography. Findings: Analyzed By CAD. Post surgical changes left breast are stable. There is no suspicious group of microcalcifications or new suspicious mass in either breast. Overall Assessment: Benign, BI-RAD 2 Management: Screening Mammogram of both breasts in 1 year. A clinical breast exam by your physician is recommended on an annual basis and results should be correlated with mammographic findings. [facility] will attempt to contact patient to return for supplemental views and ultrasound if indicated. Electronically signed and approved by: Ernesto Brizuela DO
== END | disposition home or self-care (01) ==
LOC: RADMAMWWP 09:02
PROVIDERS: ATTEND Internal Medicine Hematology & Oncology
DX: Z12.31 Encounter for screening mammogram for malignant neoplasm of breast (principal); C50.112 Malignant neoplasm of central portion of left female breast; M85.9 Disorder of bone density and structure, unspecified; Z78.0 Asymptomatic menopausal state; R05.9 Cough, unspecified; R07.1 Chest pain on breathing
CPT/HCPCS: 77067

== ENCOUNTER → 2023-11-21 | Outpatient (CLI) | payer BC ==
--- NOTE | 2023-11-21 17:24 | CT ---
EXAMINATION TYPE: CT ChestAbdPelvis w con, CT soft tissue neck w con CT DLP: 1675 (accession [id number]), 311.9 (accession [id number]) mGycm, Automated exposure control for d ose reduction was used. DATE OF EXAM: 11/21/2023 4:47 PM COMPARISON: 11/21/2022 CLINICAL INDICATION:Female, 62 years old with history of C50.112 BR CANCER; [facility], f/u breast ca (acces julio cesar [id number]), lump to right side of neck, hx of breast ca (accession [id number]) Technique: CT ChestAbdPelvis w con, CT soft tissue neck w con; Multiple axial images were obtained. T wo-dimensional coronal and sagittal reconstructions were obtained. Contrast used:100 mL of Isovue 370 with IV Contrast, Oral contrast used: with Oral Contrast Findings: Neck: Brain: Visualized portions are grossly unremarkable. Hypoplastic right A1 segment.. Orbits: Unremarkable Sinuses: Grossly unremarkable. Spaces of the neck: Clear and symmetric. Musculoskeletal: No acute osseous pathology. Lymph nodes: Enlarged right neck lymph nodes are present measuring up to 18 mm in short axis near the thoracic inlet. Vascular structures: Visualized major arteries are patent without evidence of aneurysm. Thoracic Inlet/airway: Airway is patent. The lung apices are clear. Soft tissues/Thyroid: Thyroid and remainder of the soft tissues are unremarkable. Other: none. CHEST: LUNGS/ PLEURA: No focal consolation, pneumothorax or pleural effusion. There is streaky suspected pos t treatment changes the left upper lung. Streaky scarring/atelectasis seen scattered throughout other lobes of the lung. AIRWAY: Patent and unremarkable. HEART: Size within normal limits. MEDIASTINUM:New enlarged mediastinal lymph nodes, example includes right high paratracheal measuring 15 mm, right low paratracheal measuring up to 15 mm, subcarinal 14 mm, and prevascular space measurin g up to 17 mm. VASCULATURE: No aortic aneurysm. MUSCULOSKELETAL: Moderate disc degeneration changes are present throughout the thoracolumbar spine. SOFT TISSUES/LYMPH NODES: Left breast surgical clips. Left axillary surgical clips. Suspected posttre atment changes to the left upper lobe. LOWER NECK: No significant findings. ABDOMEN: ABDOMEN LIVER: Unremarkable GALLBLADDER AND BILE DUCTS: Gallbladder surgically absent. PANCREAS: Unremarkable. SPLEEN: Unremarkable. ADRENAL GLANDS: Unremarkable. KIDNEYS AND URETERS: No evidence of hydronephrosis or renal calculus. The ureters are unremarkable. Left renal cortical cyst. PELVIS BLADDER: Unremarkable REPRODUCTIVE: Unremarkable. ABDOMEN & PELVIS STOMACH AND BOWEL: No evidence of bowel obstruction. PERITONEUM: No evidence of pneumoperitoneum or free fluid. VASCULATURE: No evidence of aortic aneurysm. MUSCULOSKELETAL: No acute osseous abnormalities. Moderate disc degeneration changes are present throu ghout the thoracolumbar spine. LYMPH NODES: No gross evidence for lymphadenopathy. SOFT TISSUE/ABDOMINAL WALL: Unremarkable IMPRESSION: Multiple enlarged lymph nodes are seen throughout the right neck and mediastinum, findings compatible with metastatic disease in the setting of known breast cancer. No evidence at this time for metastat ic disease below the diaphragm. Findings are new from 11/21/2022.
== END | disposition home or self-care (01) ==
LOC: RADCTMAIN 14:16
PROVIDERS: ATTEND Internal Medicine Hematology & Oncology
DX: C50.112 Malignant neoplasm of central portion of left female breast (principal); M85.9 Disorder of bone density and structure, unspecified; Z71.3 Dietary counseling and surveillance
CPT/HCPCS: 70491; 71260; 74177; Q9967

== ENCOUNTER → 2023-11-22 | Outpatient (CLI) | payer BC ==
--- NOTE | 2023-11-22 09:07 | MM ---
Reason for Exam: Follow-up at short interval from prior study. Last screening mammogram was performed 9 month(s) ago. Patient History: Menarche at age 12. First Full-Term at age 24. Postmenopausal. Breast cancer, left, age 59. Estrogen for 4 years from age 55 until age 59. 04/10/2020, Lumpectomy on the Left side. 04/10/2020, Malignant Core Biopsy on the left side. 01/21/2020, Malignant Core Biopsy on the left side. 2019, Radiation Therapy on the left side. 2019, Chemotherapy. Tissue Density: The breast tissue is heterogeneously dense. This may lower the sensitivity of mammography. Findings: Analyzed By CAD. Postsurgical and posttreatment changes left breast. Fat necrosis calcifications again noted at the surgical site. Asymmetric density superior right MLO view does not persist on additional views. Findings compatible with superimposition shadow. No significant change is identified. Overall Assessment: Benign, BI-RAD 2 Management: Screening Mammogram of both breasts in 1 year. Results were given to the patient verbally at the time of exam. Patient should continue monthly self-breast exams. A clinical breast exam by your physician is recommended on an annual basis. This exam should not preclude additional follow-up of suspicious palpable abnormalities. Electronically signed and approved by: Tori Loyola M.D. Radiologist
== END | disposition home or self-care (01) ==
LOC: RADMAMWWP 08:07
PROVIDERS: ATTEND Internal Medicine Hematology & Oncology
DX: C50.112 Malignant neoplasm of central portion of left female breast (principal); Z71.3 Dietary counseling and surveillance; Z78.0 Asymptomatic menopausal state
CPT/HCPCS: 77062; 77066

== ENCOUNTER 2023-12-05 08:16 | Day surgery (SDC) | payer BC ==
[2023-12-05 09:06] VITALS: TEMP 98.1
--- NOTE | 2023-12-05 09:52 | US ---
ULTRASOUND GUIDED CORE BIOPSY RIGHT NECK MASS: CLINICAL HISTORY: Right neck mass FINDINGS: The procedure was explained to the patient. The risks, complications, benefits and alternatives were discussed and any questions were answered. Informed consent was obtained. Patient was placed supin e on the ultrasound table and prepped and draped in the usual sterile fashion. Utilizing a 18 gauge needle, two passes were made into the right neck mass. Patient was stable throughout the procedure. Pathology is pending. All elements of maximal barrier technique were utilized. IMPRESSION: 1. Successful ultrasound guided core biopsy right neck mass.
[2023-12-05 10:05] VITALS: RESP 18
[2023-12-05 10:36] VITALS: BP 114/72; PULSE 88
== END 2023-12-05 10:15 | disposition home or self-care (01) ==
LOC: RADPROMAIN 08:16
PROVIDERS: ATTEND Internal Medicine Hematology & Oncology
DX: C50.111 Malignant neoplasm of central portion of right female breast (principal); R22.1 Localized swelling, mass and lump, neck
CPT/HCPCS: 38505; 76942; 88305; 88341; 88342

== ENCOUNTER → 2024-01-12 | Outpatient (CLI) | payer BC | END | disposition home or self-care (01) | LOC: LABWHC1 09:32 | PROVIDERS: ATTEND Internal Medicine Hematology & Oncology | DX: C50.112 Malignant neoplasm of central portion of left female breast (principal) | CPT/HCPCS: 36415; 93005 ==

== ENCOUNTER → 2024-04-01 | Outpatient (CLI) | payer BC ==
[2024-04-01 10:33] LABS: African American GFR (CKD) >90 (>60 ml/min/1.73 sqM); Blood Urea Nitrogen 8 mg/dL (7-17); Non-African American GFR(CKD) >90 (>60 ml/min/1.73 sqM)
--- NOTE | 2024-04-04 10:59 | CT ---
EXAMINATION TYPE: CT Chest Abd Pelvis w con CT DLP: 724.10 mGycm, Automated exposure control for dose reduction was used. DATE OF EXAM: 04/01/2024 11:55 AM COMPARISON: 11/21/2023 CLINICAL INDICATION:Female, 63 years old with history of C50.112 BREAST CANCER; [facility], f/u breast cance r Technique: CT Chest Abd Pelvis w con; Multiple axial images were obtained. Two-dimensional coronal an d sagittal reconstructions were obtained. Contrast used:100 mL of Isovue 300 with IV Contrast, Oral contrast used: with Oral Contrast Findings: CHEST: LUNGS/ PLEURA: No pulmonary nodules or masses. Scattered foci of parenchymal scarring similar to prio r exam. AIRWAY: Patent and unremarkable. HEART: Size within normal limits. MEDIASTINUM: Several suspicious lymph nodes in the mediastinum and the right lower neck appear the sa me or perhaps slightly smaller. VASCULATURE: No aortic aneurysm. MUSCULOSKELETAL: No acute osseous abnormalities. SOFT TISSUES/LYMPH NODES: Unremarkable. LOWER NECK: No significant findings. ABDOMEN: ABDOMEN LIVER: Unremarkable GALLBLADDER AND BILE DUCTS: Cholecystectomy clips in the gallbladder fossa. PANCREAS: Unremarkable. SPLEEN: Unremarkable. ADRENAL GLANDS: Unremarkable. KIDNEYS AND URETERS: No evidence of hydronephrosis or renal calculus. The ureters are unremarkable. PELVIS BLADDER: Unremarkable REPRODUCTIVE: Unremarkable. ABDOMEN & PELVIS STOMACH AND BOWEL: No evidence of bowel obstruction. PERITONEUM: No evidence of pneumoperitoneum or free fluid. VASCULATURE: No evidence of aortic aneurysm. MUSCULOSKELETAL: No acute osseous abnormalities. No aggressive bone lesions identified. LYMPH NODES: No gross evidence for lymphadenopathy below the diaphragm. SOFT TISSUE/ABDOMINAL WALL: Unremarkable IMPRESSION: Lymph nodes in the right lower neck and mediastinum are again identified. These appear close to the p revious measurement or slightly decreased. Not changed significantly. No metastatic disease detected below the diaphragm. Follow up recommendations for incidental pulmonary nodules are per [employer] or [employer].
== END | disposition home or self-care (01) ==
LOC: RADCTMAIN 09:57
PROVIDERS: ATTEND Internal Medicine Hematology & Oncology
DX: C50.112 Malignant neoplasm of central portion of left female breast (principal); D70.2 Other drug-induced agranulocytosis; M85.9 Disorder of bone density and structure, unspecified; Z71.3 Dietary counseling and surveillance
CPT/HCPCS: 82565; 84520; 71260; 74177; 36415; Q9967

== ENCOUNTER → 2024-08-05 | Outpatient (CLI) | payer BC ==
[2024-08-05 10:14] LABS: African American GFR (CKD) >90 (>60 ml/min/1.73 sqM); Blood Urea Nitrogen 6 mg/dL (7-17); Non-African American GFR(CKD) >90 (>60 ml/min/1.73 sqM)
--- NOTE | 2024-08-05 12:14 | CT ---
EXAMINATION TYPE: CT ChestAbdPelvis w con CT DLP: 588.7 mGycm, Automated exposure control for dose reduction was used. DATE OF EXAM: 08/05/2024 11:42 AM COMPARISON: CT chest abdomen pelvis 04/01/2024, 11/21/2023 CLINICAL INDICATION:Female, 63 years old with history of C50.112 MALIGNANT NEOPLASM OF CENTRAL PORTIO N OF L; [facility], F/u on lung Ca. Technique: Multiple axial images of the chest, abdomen, and pelvis were obtained following the intrav enous administration of 100 mL Isovue-300. Oral contrast was administered. Two-dimensional coronal an d sagittal reconstructions were obtained. Findings: CHEST: LUNGS/ PLEURA: No pleural effusion or pneumothorax. No focal consolidation. No suspicious pulmonary nodules or masses. Redemonstration of scattered linear regions of scarring. Similar prior exam. AIRWAY: Patent and unremarkable.. HEART: Size within normal limits. Cardiac fusion. MEDIASTINUM: Decreased size of mediastinal lymph nodes with exams including a posterior right paratra cheal superior mediastinal 1.7 cm lymph node, previously 2.2 cm. A right paratracheal anterior 1 cm l ymph node previously 1.2 cm. And a subcarinal lymph node measuring 0.8 cm, previously 1.4 cm. VASCULATURE: No aortic aneurysm. MUSCULOSKELETAL: No acute osseous abnormalities. Dextrocurvature of the thoracolumbar spine. No aggre ssive osseous lesion. SOFT TISSUES/LYMPH NODES: Surgical clips within the left axilla and left breast. No axillary adenopat hy identified. LOWER NECK: Decreased size of right lower neck 1.1 cm short axis lymph node, previously 2.0 cm.. ABDOMEN: ABDOMEN LIVER: Unremarkable GALLBLADDER AND BILE DUCTS: The gallbladder is surgically absent. No biliary ductal dilatation. PANCREAS: Unremarkable. SPLEEN: Unremarkable. ADRENAL GLANDS: Unremarkable. KIDNEYS AND URETERS: No evidence of hydronephrosis. The kidneys enhance symmetrically. Nonobstructive left lower pole renal calculus. Left lower pole 2.2 cm cyst. PELVIS BLADDER: Unremarkable REPRODUCTIVE: Unremarkable. ABDOMEN & PELVIS STOMACH AND BOWEL: Stomach and duodenum are unremarkable. Enteric contrast reaches the distal small b owel. Moderate colonic stool present. No focal bowel wall thickening or surrounding inflammatory lennon ges. No evidence of bowel obstruction. PERITONEUM: No evidence of pneumoperitoneum or free fluid. VASCULATURE: No evidence of aortic aneurysm. Pelvic phleboliths. MUSCULOSKELETAL: No acute osseous abnormalities. Dextrocurvature of the thoracolumbar spine. Grade 1 anterolisthesis of L5 on S1. Advanced facet arthropathy of the lower thoracolumbar spine with fusion changes. LYMPH NODES: No evidence for lymphadenopathy. SOFT TISSUE/ABDOMINAL WALL: Unremarkable IMPRESSION: Positive response to therapy with decreased size of right lower neck and mediastinal lymph nodes from prior examination. No new suspicious lymphadenopathy. No evidence for metastatic disease below the d iaphragm. [facility], , 08/05/2024 12:11 PM
== END | disposition home or self-care (01) ==
LOC: RADCTMAIN 09:33
PROVIDERS: ATTEND Internal Medicine Hematology & Oncology
DX: C50.112 Malignant neoplasm of central portion of left female breast
CPT/HCPCS: 36415; 71260; 74177; 82565; 84520